=== PATIENT | male | born 1940 | race Caucasian/White ===

== ENCOUNTER 2017-04-07 17:33 | Emergency (ER) | payer OTHER ==
[~2017-04-07] VITALS: Ht 175.3 cm; Wt 97.5 kg
[~2017-04-07 17:33] MED LIST: ADVAIR 250-501 EACH INH; ADVAIR HFA 230M12 GM INH; ADVAIR HFA 45MC1 AER INH; ALDACTONE25 MG PO; ALLOPURINOL 30300 M1 PO; ALPRAZOLAM 0.50.5 MG PO; AMITRIPTYLINE H50 M2 PO; ANALPRAM E 2.51 EAC1 TOP; ASA5UEC PO; ASPIRIN EC81 M1 PO; ASPIRIN325 PO; ASPIRIN81 M2 PO; ATIVAN1 MG PO; ATORVASTATIN CA40 MG PO; AVELOX400 MG PO; AZOR 10-40 MG1 EACH PO; BYSTOLIC10 MG PO; CENTRUM SILVER1 EAC2 PO; CENTRUM SILVER1 EAC4 PO; CRESTOR10 MG PO; DEMADEX20 MG PO; FENOFIBRATE134 MG PO; FISH OIL 1,0001 EAC5 PO; FLEXERIL PO; FLONASE 0.05%50 MCG NASAL; FUROSEMIDE 20 M20 M1 PO; FUROSEMIDE10 MG/1 M2; GLIPIZIDE 10 MG10 M1 PO; GLUCOTROL10 MG PO; HYDROCODON-ACE1 EACH; IMDUR 30 MG TAB30 M1 PO; JANUVIA50 MG PO; LANTUS SUBQ; LASIX 40 MG TAB40 M2 PO; LEVOTHYROXIN0.075 MG PO; LEVOTHYROXINE0.05 MG PO; LIPOFEN150 MG PO; LOVAZA1000 MG PO; MICARDIS40 MG PO; MULTIVITAMINS PO; NEXIUM; NEXIUM 40 MG CA40 M1 PO; NITROGLYCERIN0.4 MG SL; NORCO 5-325 TA1 EACH PO; PLAVIX 75 MG TA75 M1 PO; PLAVIX 75 MG TA75 MG PO; PROAIR HFA8.5 GM IH; REGLAN 10 MG TA10 MG PO; REMERON15 MG PO; SAVAYSA30 MG PO; SILVADENE20 GM TOP; SPIRIVA INH; TAMSULOSIN HCL0.4 M1 PO; VASCEPA1 GM; VASCEPA1 GM PO; VICTOZA0.6 MG/0.1 SUBQ; WELCHOL3.75 GM PO; ZOCOR 20 MG TAB20 M1 PO; ZOLOFT25 MG PO
[2017-04-07] MEDS ORDERED: RENVELA800 MG PO (18:14)
[2017-04-07] MEDS ORDERED: XARELTO15 MG (18:16)
[2017-04-07] MEDS ORDERED: CRESTOR20 MG PO (18:16)
[2017-04-07] MEDS ORDERED: FLONASE 0.05%50 MCG NASAL (18:21)
[2017-04-07] MEDS ORDERED: [UNRECOGNIZED DRUG - SUPPLY] (18:21)
[2017-04-07] MEDS ORDERED: TRAMADOL 50 MG50 MG PO (18:49)
== END 2017-04-07 19:30 | disposition home or self-care (01) ==
LOC: ER 17:33
DX: S30.0XXA Contusion of lower back and pelvis, initial encounter (principal); S20.20XA Contusion of thorax, unspecified, initial encounter; I48.91 Unspecified atrial fibrillation; E78.00 Pure hypercholesterolemia, unspecified; M10.9 Gout, unspecified; K21.9 Gastro-esophageal reflux disease without esophagitis; E11.9 Type 2 diabetes mellitus without complications; I10 Essential (primary) hypertension; M19.90 Unspecified osteoarthritis, unspecified site; J44.9 Chronic obstructive pulmonary disease, unspecified; G47.30 Sleep apnea, unspecified; Z79.01 Long term (current) use of anticoagulants; Z87.442 Personal history of urinary calculi; Z90.49 Acquired absence of other specified parts of digestive tract; Z79.4 Long term (current) use of insulin; W11.XXXA Fall on and from ladder, initial encounter; Y93.89 Activity, other specified; Y92.89 Other specified places as the place of occurrence of the external cause; Y99.8 Other external cause status

== ENCOUNTER 2017-10-25 12:55 | Inpatient (IN) | payer OTHER ==
[~2017-10-25] VITALS: Ht 175.3 cm; Wt 97.0 kg
--- NOTE | ~2017-10-25 | EKG ---
[address] [address] ELECTROCARDIOGRAM REPORT Name: GONZALEZDARRICK Gissel Room #: 217-P ADM IN M.R.#: [id number] Admission: 10/25/17 Attend Phys: Viet Hyman MD Discharge: Date of : 36 Report #: [id number] THIS REPORT FOR: //name// [facility] ED Test Date: 2017-10-25 Test Time: 13:12:47 Pat Name: DARRICK GONZALEZ Department: Room: Gender: M Theatrical Variety Agent: floresita : 1940 Requested By: Mirtha Ardon Order Number: [id number] MD: Hammad Koehler Measurements Intervals [place] Rate: 95 P: NE: QRS: 53 QRSD: 162 T: -11 QT: 407 QTc: 512 Interpretive Statements Atrial fibrillation Right bundle branch block Nonspecific ST segment abnormalities Compared to ECG 02/29/2016 21:13:53 Ectopic atrial rhythm no longer present First degree AV block no longer present Electronically Signed On 10-26-2017 11:05:05 CDT by Hammad Koehler [email or web address] <ELECTRONICALLY SIGNED> By: Hammad Koehler MD 10/26/17 1105 1312 1312 Hammad Koehler MD /EPI
--- NOTE | ~2017-10-25 | EKG ---
[address] [address] ELECTROCARDIOGRAM REPORT Name: DARRICK GONZALEZ Room #: 217-P ADM IN M.R.#: [id number] Admission: 10/25/17 Attend Phys: Viet Hyman MD Discharge: Date of : 36 Report #: [id number] THIS REPORT FOR: //name// [facility] Test Date: 2017-10-29 Test Time: 12:11:22 Pat Name: DARRICK GONZALEZ Department: Room: 217 P Gender: M Business Analyst Manager: Juan Francisco BELL : 1940 Requested By: Corbin Mckeon Order Number: [id number] MD: Ace Arnett Measurements Intervals [place] Rate: 82 P: [place]: QRS: 60 QRSD: 170 T: 2 QT: 457 QTc: 534 Interpretive Statements Atrial fibrillation Right bundle branch block Compared to ECG 10/25/2017 13:12:47 No significant changes Electronically Signed On 10-29-2017 17:10:49 CDT by Ace Arnett [email or web address] <ELECTRONICALLY SIGNED> By: Ace Arnett MD, [facility] 10/29/17 1710 1211 10 Ace Arnett MD, [facility] /EPI
--- NOTE | ~2017-10-25 | 2DMMODE ---
[facility] [address] [facility] [employer] [place] [address] 2 D/M-MODE ECHOCARDIOGRAM Name: DARRICK GONZALEZ Room #: 217-P [facility] IN [facility].#: [id number] Admission: 10/25/17 Attend Phys: Viet Hyman, Discharge: Date of : 36 Date of Service: 10/27/17 0833 Report #: [id number] THIS REPORT FOR: //name// APPROVED REPORT Study performed: 10/26/2017 12:44:54 EXAM: Comprehensive 2D, Doppler, and color-flow Echocardiogram Status: on-call BSA: 2.09 HR: 94 bpm BP: 146/77 mmHg Rhythm: Atrial Fibrillation Other Information Study Quality: Adequate Risk Factors: Cardiac Risk Factors: HTN, Hyperlipidemia, DM Indications Congestive Heart Failure COPD Atrial Fibrillation Dyspnea Pacemaker Chest Pain 2D Dimensions LVEF(%): 44.67 (>50%) IVSd: 10.61 (7-11mm) LVOT Diam: 21.00 (18-24mm) LVDd: 53.50 mm PWd: 12.36 (7-11mm) LVDs: 41.53 (25-40mm) Aortic Root: 27.97 mm LV Single Plane 4CH: 39.38 % LV Single Plane 2CH: 42.58 % Wolf's LVEF: 40.98 % Biplane EF: 43.7 % Volumes Left Atrial Volume (Systole) Single Plane 4CH: 64.87 mL Single Plane 2CH: 55.73 mL LA ESV Index: 32.00 mL/m2 [facility] [address] [place] [address] 2 D/M-MODE ECHOCARDIOGRAM Name: DARRICK GONZALEZ Room #: 217-P [facility] IN ..#: [id number] Admission: 10/25/17 Attend Phys: Viet Hyman, Discharge: Date of : 36 Date of Service: 10/27/17 0833 Report #: [id number] Aortic Valve AoV Peak Radames.: 1.35 m/s AO Peak Gr.: 8.42 mmHg LVOT Max P.11 mmHg LVOT Max V: 0.88 m/s ANÍBAL Vmax: 2.34 cm2 AI Vmax: 4.43 m/s AI [place]: 1.85 m/s2 AI PHT: 702.31 ms Pulmonary Valve PV Peak Radames.: 0.72 m/s PV Peak Gr.: 2.07 mmHg Tricuspid Valve TR Peak Radames.: 2.55 m/s RAP Estimate: 10.00 mmHg TR Peak Gr.: 26.07 mmHg PA Pressure: 36.00 mmHg Left Ventricle The left ventricle is normal size. There is normal LV segmental wall motion. Mild concentric left ventricular hypertrophy. Left ventricular systolic function is mildly decreased. LVEF is 45%. This study is not technically sufficient to allow evaluation of the LV diastolic function due to atrial fibrillation. Right Ventricle The right ventricle is normal size. The right ventricular systolic function is normal. Atria The left atrium size is normal. The right atrium size is normal. Aortic Valve The Aortic valve is mildly sclerotic. Moderate aortic regurgitation. There is no aortic valvular stenosis. Mitral Valve The mitral valve is normal in structure. Moderate mitral regurgitation. No evidence of mitral valve stenosis. Tricuspid Valve The tricuspid valve is normal in structure. Moderate tricuspid regurgitation. Pulmonary artery pressure is 36 mmHg. Pulmonic Valve [facility] [address] [place] [address] 2 D/M-MODE ECHOCARDIOGRAM Name: DARRICK GONZALEZ Gissel Room #: 217-P [facility] IN .R.#: [id number] Admission: 10/25/17 Attend Phys: Viet Hyman, Discharge: Date of : 36 Date of Service: 10/27/17 0833 Report #: [id number] The pulmonary valve is normal in structure. Mild pulmonic regurgitation. Great Vessels The aortic root is normal in size. IVC is dilated and collapses <50% with inspiration. Pericardium There is no pericardial effusion. <Conclusion> The left ventricle is normal size. Mild concentric left ventricular hypertrophy. Left ventricular systolic function is mildly decreased. LVEF is 45%. The right ventricle is normal size. The left atrium size is normal. The Aortic valve is mildly sclerotic. Moderate aortic regurgitation. Moderate mitral regurgitation. Moderate tricuspid regurgitation. Pulmonary artery pressure is 36 mmHg. There is no pericardial effusion. <ELECTRONICALLY SIGNED> By: Hammad Koehler MD 10/27/17832 2 2 Hammad Koehler MD /INF
[~2017-10-25 12:55] MED LIST changes: +CRESTOR20 MG PO; +RENVELA800 MG PO; +TRAMADOL 50 MG50 MG PO; +XARELTO15 MG; +[UNRECOGNIZED DRUG - SUPPLY]
[2017-10-25 12:59] VITALS: BP 144/62
[2017-10-25] MEDS ORDERED: NEURONTIN 300300 M1 PO (13:06)
[2017-10-25] MEDS ORDERED: VOLTAREN GEL 1100 G2 TOP (13:06)
[2017-10-25] MEDS ORDERED: NOVOLOG FL100 UNIT/M SUBQ (13:07)
[2017-10-25] MEDS ORDERED: NOVOLOG100 UNIT/1 SUBQ (13:08)
[2017-10-25 13:55] LABS: ABSOLUTE NEUTROPHILS 2.3 thou/uL (1.4-8.2); BASOPHILS 1.2 % (0.0-2.0); EOSINOPHILS 1.2 % (0.0-3.0); HEMATOCRIT 32.4 % (42.0-52.0); HEMOGLOBIN 10.7 gm/dL (14.0-18.0); LYMPHOCYTES 26.3 % (24.0-44.0); MCH 29.4 pg (26.0-34.0); MCHC 33.1 g/dL (28.0-37.0); MCV 88.7 fL (80.0-100.0); MONOCYTES 8.6 % (1.0-8.0); PLATELET COUNT 127 thou/uL (150-400); POLYS 62.7 % (36.0-66.0); RBC 3.65 mil/uL (4.50-6.00); RDW 18.3 % (10.5-14.5); WBC 3.6 thou/uL (4.0-11.0)
[2017-10-25 14:14] LABS: CALCIUM 9.2 mg/dL (8.5-10.1); CREATININE 1.7 mg/dL (0.7-1.3); TROPONIN-I 0.07 ng/mL (<0.06)
[2017-10-25 15:26] VITALS: BP 144/62
[2017-10-25 16:24] LABS: ALBUMIN 3.4 g/dL (3.4-5.0); TOTAL PROTEIN 7.3 g/dL (6.4-8.2)
[2017-10-25 16:50] LABS: TSH 3.078 uIU/mL (0.358-3.740)
[2017-10-25 17:47] VITALS: BP 151/86
[2017-10-25 19:09] VITALS: BP 149/80
[2017-10-25 23:45] VITALS: BP 169/100
[2017-10-26 05:11] VITALS: BP 146/77
[2017-10-26 07:34] VITALS: BP 151/66
[2017-10-26 11:53] LABS: HEMATOCRIT 33.6 % (42.0-52.0); HEMOGLOBIN 11.1 gm/dL (14.0-18.0); MCH 29.3 pg (26.0-34.0); RBC 3.78 mil/uL (4.50-6.00); RDW 18.3 % (10.5-14.5); WBC 4.4 thou/uL (4.0-11.0)
[2017-10-26 12:06] LABS: CALCIUM 8.9 mg/dL (8.5-10.1); MAGNESIUM 1.7 mg/dL (1.8-2.4); POTASSIUM 4.3 mmol/L (3.5-5.1)
[2017-10-26 12:19] VITALS: BP 153/85
[2017-10-26 16:12] VITALS: BP 151/82
[2017-10-26 20:45] VITALS: BP 141/58
[2017-10-27] MEDS ORDERED: AMITRIPTYLINE H25 M2 PO (03:15)
[2017-10-27 03:20] VITALS: BP 158/87
[2017-10-27 07:57] VITALS: BP 150/76
[2017-10-27 08:37] LABS: MCH 29.2 pg (26.0-34.0); MCHC 32.5 g/dL (28.0-37.0); MCV 89.9 fL (80.0-100.0); RBC 4.11 mil/uL (4.50-6.00); RDW 18.6 % (10.5-14.5); WBC 10.1 thou/uL (4.0-11.0)
[2017-10-27 08:48] LABS: CALCIUM 9.1 mg/dL (8.5-10.1); CREATININE 1.9 mg/dL (0.7-1.3); MAGNESIUM 2.1 mg/dL (1.8-2.4); POTASSIUM 4.5 mmol/L (3.5-5.1)
[2017-10-27 11:41] VITALS: BP 119/60
[2017-10-27 16:09] VITALS: BP 139/77
[2017-10-27 20:30] VITALS: BP 156/79; BP 95/49
[2017-10-28 04:50] VITALS: BP 129/78
[2017-10-28 07:43] LABS: HEMATOCRIT 36.1 % (42.0-52.0); HEMOGLOBIN 11.9 gm/dL (14.0-18.0); MCH 29.1 pg (26.0-34.0); MCHC 32.8 g/dL (28.0-37.0); MCV 88.8 fL (80.0-100.0); RBC 4.07 mil/uL (4.50-6.00); RDW 18.5 % (10.5-14.5); WBC 8.2 thou/uL (4.0-11.0)
[2017-10-28 07:52] LABS: CALCIUM 8.9 mg/dL (8.5-10.1); MAGNESIUM 1.9 mg/dL (1.8-2.4); POTASSIUM 4.4 mmol/L (3.5-5.1)
[2017-10-28 07:55] VITALS: BP 144/77
[2017-10-28 11:12] VITALS: BP 115/67
[2017-10-28 19:56] VITALS: BP 120/73
[2017-10-29 03:54] LABS: CALCIUM 8.9 mg/dL (8.5-10.1); CREATININE 2.4 mg/dL (0.7-1.3); MAGNESIUM 2.1 mg/dL (1.8-2.4); POTASSIUM 4.9 mmol/L (3.5-5.1)
[2017-10-29 04:39] LABS: HEMATOCRIT 33.7 % (42.0-52.0); HEMOGLOBIN 11.3 gm/dL (14.0-18.0); MCH 29.7 pg (26.0-34.0); MCHC 33.6 g/dL (28.0-37.0); MCV 88.4 fL (80.0-100.0); RBC 3.82 mil/uL (4.50-6.00); RDW 18.2 % (10.5-14.5); WBC 6.3 thou/uL (4.0-11.0)
[2017-10-29 04:53] VITALS: BP 117/70
[2017-10-29] MEDS ORDERED: CEFUROXIME250 MG PO (08:07)
[2017-10-29 08:20] VITALS: BP 138/77
[2017-10-29 11:12] VITALS: BP 117/69
[2017-10-29 11:16] VITALS: BP 117/69
[2017-10-29 15:04] VITALS: BP 111/69
[2017-10-29] MEDS ORDERED: ATIVAN1 MG PO (16:31)
[2017-10-29 20:21] VITALS: BP 112/41
[2017-10-30 02:27] VITALS: BP 134/64
[2017-10-30 03:01] VITALS: BP 122/64
[2017-10-30 11:05] VITALS: BP 107/47
[2017-10-30] MEDS ORDERED: MUCINEX600 MG PO (13:59)
[2017-10-30] MEDS ORDERED: PROBIOTIC1 EAC1 PO (13:59)
[2017-10-30] MEDS ORDERED: IPRAT-ALBUT 0.5-3 ML INH (14:07)
[2017-10-30 16:11] VITALS: BP 140/67
== END 2017-10-30 18:52 | DRG 871 ==
LOC: ER 12:55 → EROBS 14:51 → 2N 14:51
PROVIDERS: Emergency Medicine; Internal Medicine
DX: A41.9 Sepsis, unspecified organism (principal); I50.23 Acute on chronic systolic (congestive) heart failure; J18.9 Pneumonia, unspecified organism; I13.0 Hypertensive heart and chronic kidney disease with heart failure and stage 1 through stage 4 chronic kidney disease, or unspecified chronic kidney disease; E84.9 Cystic fibrosis, unspecified; J44.1 Chronic obstructive pulmonary disease with (acute) exacerbation; J44.0 Chronic obstructive pulmonary disease with (acute) lower respiratory infection; N18.4 Chronic kidney disease, stage 4 (severe); M19.90 Unspecified osteoarthritis, unspecified site; K21.9 Gastro-esophageal reflux disease without esophagitis; E78.00 Pure hypercholesterolemia, unspecified; M10.9 Gout, unspecified; I48.91 Unspecified atrial fibrillation; E78.5 Hyperlipidemia, unspecified; E11.22 Type 2 diabetes mellitus with diabetic chronic kidney disease; E03.9 Hypothyroidism, unspecified; G47.00 Insomnia, unspecified; F41.1 Generalized anxiety disorder; F41.0 Panic disorder [episodic paroxysmal anxiety]; R63.4 Abnormal weight loss; R29.6 Repeated falls; I27.20 Pulmonary hypertension, unspecified; G47.30 Sleep apnea, unspecified; K59.00 Constipation, unspecified; Z95.1 Presence of aortocoronary bypass graft; Z87.442 Personal history of urinary calculi; Z87.11 Personal history of peptic ulcer disease; Z95.0 Presence of cardiac pacemaker; Z79.899 Other long term (current) drug therapy; Z79.4 Long term (current) use of insulin; Z79.82 Long term (current) use of aspirin; Z95.820 Peripheral vascular angioplasty status with implants and grafts; Z82.49 Family history of ischemic heart disease and other diseases of the circulatory system; Z91.81 History of falling; Z68.31 Body mass index [BMI] 31.0-31.9, adult; Z79.01 Long term (current) use of anticoagulants
CPT/HCPCS: 10194

== ENCOUNTER 2018-04-12 21:16 | Inpatient (IN) | payer OTHER ==
--- NOTE | ~2018-04-12 | HC ---
[facility] [place] [address] CONSULTATION Name: DARRICK GONZALEZ Room #: 213-P ADM IN M.R.#: [id number] Admission: 04/12/18 Attend Phys: Shen Canales MD Discharge: Date of : 38 Report #: [id number] THIS REPORT FOR: //name// CC: Teddy Canales DATE OF SERVICE: 04/17/2018 REASON FOR CONSULTATION: Epistaxis. HISTORY OF PRESENT ILLNESS: The patient is a 77-year-old male who has a history of chronic renal insufficiency, congestive heart failure, ischemic cardiomyopathy, diabetes, atrial fibrillation, pacemaker placement, who also has low platelet count. He is on Xarelto. Apparently, he has been picking at his nose in the morning times and had some bleeding this morning. Anterior pack was placed this morning, which he then removed. He does not remember removing the packing or having it placed this morning. Questioning him on the date today, he does know that it is 04/17/2018, but does not really remember anybody put anything or messing with his nose today. I have been asked to evaluate him for epistaxis. He is not currently bleeding, and the nurse states that since she told him to stop playing with his nose or she would have to call the doctor that he has stopped touching his nose and he is no longer bleeding. PAST MEDICAL HISTORY: Significant for cardiomyopathy, 40% ejection fraction, pacemaker, COPD, liver cirrhosis, diabetes, hypertension. PAST SURGICAL HISTORY: Coronary bypass, transurethral resection of prostate, cardiac ablation. FAMILY HISTORY: Noncontributory. SOCIAL HISTORY: He used alcohol socially. FAMILY HISTORY: Noncontributory. REVIEW OF SYSTEMS: Significant for some nausea and abdominal discomfort. Otherwise, no significant positives on review of systems. PHYSICAL EXAMINATION: GENERAL: He is a well-developed male who is sitting up comfortably, resting in his chair. He is watching TV and is conversant. HEENT: Head is normocephalic. Pupils are equal, round and reactive. Nasal, no evidence of active epistaxis. Nasal mucosa is a little bit dry. He is mouth breathing. Oral cavity, no greenish ulcerations seen. NECK: No palpable adenopathy. [facility] [address] [place] [address] CONSULTATION Name: DARRICK GONZALEZ Room #: 213-P [facility] IN [facility].#: [id number] Admission: 04/12/18 Attend Phys: Shen Canales MD Discharge: Date of : 38 Report #: [id number] IMPRESSION: History of epistaxis with thrombocytopenia, anticoagulation and renal insufficiency, all leading to significant increased risk for epistaxis. PLAN: At this point, I have asked for him not to touch or manipulate his nose. His platelet count has been on the rise, and this should be helpful. As long as he is not manipulating his nose, it should be self-limited.. By: [id number] Jacek Rangel MD /arlet
[~2018-04-12 21:16] MED LIST changes: +AMITRIPTYLINE H25 M2 PO; +ANALPRAM HC 128.4 GM RC; +CEFUROXIME250 MG PO; +FISH OIL 1,001000 M2 PO; +FLOMAX0.4 MG PO; +IPRAT-ALBUT 0.5-3 ML INH; +MIRALAX17 GM PO; +MUCINEX600 MG PO; +NEURONTIN 300300 M1 PO; +NOVOLOG FL100 UNIT/M SUBQ; +NOVOLOG100 UNIT/1 SUBQ; +PROBIOTIC1 EAC1 PO; +SSD CREAM 1% 5050 GM TOP; +TOUJEO MAX300 UNIT/1 SUBQ; +TYLENOL325 MG PO; +VOLTAREN GEL 1100 G2 TOP
[2018-04-12] MEDS ORDERED: PROAIR RESPICL90 MCG INH (22:02)
[2018-04-12] MEDS ORDERED: [UNRECOGNIZED DRUG - OTHER] PO (22:10)
[2018-04-12] MEDS ORDERED: MELATONIN5 M1 PO (22:12)
[2018-04-13 01:12] LABS: ABSOLUTE NEUTROPHILS 15.5 thou/uL (1.4-8.2); BASOPHILS 0.3 % (0.0-2.0); HEMATOCRIT 27.9 % (42.0-52.0); HEMOGLOBIN 9.1 gm/dL (14.0-18.0); LYMPHOCYTES 4.8 % (24.0-44.0); MCH 28.1 pg (26.0-34.0); MCHC 32.8 g/dL (28.0-37.0); MCV 85.5 fL (80.0-100.0); MONOCYTES 3.4 % (1.0-8.0); PLATELET COUNT 70 thou/uL (150-400); POLYS 91.5 % (36.0-66.0); RBC 3.26 mil/uL (4.50-6.00); RDW 18.7 % (10.5-14.5); WBC 16.9 thou/uL (4.0-11.0)
--- NOTE | 2018-04-13 01:19 | NUR ---
PT IS ALERT AND ORIENTED 2-4. HE IS FORGETFUL AND CONFUSED AT TIMES. HE ALSO LIKES TO REPEAT, 'OH HELP ME CHRISTINA,' VERY LOUDLY. PT C/O ABDOMEN/CHEST PAIN. PAIN MEDICATION GIVEN AND RECEIVED. PT STATES SOME RELIEF. THE PATIENT'S ALSO STATED THAT THE PAIN SEEMS TO GET WORSE AT NIGHT WHEN THE PATIENT IS LYING DOWN. PT STATES THAT THE PAIN HAS BEEN GOING ON FOR A WHILE, HOWEVER HE IS UNSURE HOW LONG IT HAS BEEN GOING ON. ASSESSMENTS CHARTED. WILL CONTINUE TO MONITOR.
[2018-04-13 01:28] LABS: CHOLESTEROL 50 mg/dL (<200); HDL CHOLESTEROL 34 mg/dL (>40); LDL CHOLESTEROL 5 mg/dL (<100); TC:HDL 1.5 Ratio (Not establshd); TRIGLYCERIDE 59 mg/dL (<150); VLDL 12 mg/dL (<40)
[2018-04-13 01:29] LABS: ALBUMIN 3.1 g/dL (3.4-5.0); CALCIUM 9.1 mg/dL (8.5-10.1); CREATININE 4.6 mg/dL (0.7-1.3); MAGNESIUM 2.1 mg/dL (1.8-2.4); POTASSIUM 4.8 mmol/L (3.5-5.1); TOTAL BILIRUBIN 1.8 mg/dL (<0.1-1.0); TOTAL PROTEIN 6.8 g/dL (6.4-8.2)
[2018-04-13 01:32] LABS: SERUM ASSESSMENT Clear
[2018-04-13 03:49] VITALS: BP 109/44
[2018-04-13 08:17] VITALS: BP 115/53
[2018-04-13 09:24] LABS: URINE COLOR YELLOW
[2018-04-13 09:25] LABS: URINE BILIRUBIN NEGATIVE (Negative); URINE BLOOD TRACE (Negative); URINE CLARITY CLEAR; URINE GLUCOSE-RANDOM* NEGATIVE (Negative); URINE KETONES NEGATIVE (Negative); URINE LEUKOCYTES NEGATIVE (Negative); URINE NITRITE NEGATIVE (Negative); URINE PROTEIN (DIPSTICK) 2+ (Negative); URINE SPECIFIC GRAVITY 1.025 (1.005-1.035); URINE UROBILINOGEN 0.2 E.U./dl (0.2-1.0)
[2018-04-13 09:26] LABS: PROT/CREAT RATIO 0.6; URINE CREATININE-RANDOM* 189.3 mg/dL; URINE PROTEIN-RANDOM* 118.7 mg/dL (<11.9)
[2018-04-13 09:34] LABS: COARSE GRANULAR CASTS 4-10 Moderate /LPF (None Seen); HYALINE CASTS 0-3 Few /LPF (None Seen); SQUAMOUS 0-3 Few /LPF (0-3)
[2018-04-13 09:35] LABS: BACTERIA 1-9 Few /HPF (None Seen); URINE RBC 0-2 Rare /HPF (0-2); URINE WBC None Seen /HPF (0-5)
[2018-04-13 09:36] LABS: CRYSTALS None Seen /LPF (None Seen)
[2018-04-13 12:21] VITALS: BP 130/55
[2018-04-13 17:54] VITALS: BP 133/57
[2018-04-13 19:55] VITALS: BP 147/63
--- NOTE | 2018-04-14 03:01 | NUR ---
ASSUMED CARE 190. VSS. ASSESSMENT CHARTED. A&O 2-4, PT FORGETFUL, C/O UPPER AB PAIN AND NAUSEA BUT WILL DENY HIS CONCERNS WHEN ASKED. PT DENIES CP OR SOA. PRN PAIN AND NAUSEA MEDS GIVEN, PARTIAL/COMPLETE RELIEF-PT WILL CHANGE ANSWER. PT STATED HE WEARS A CPAP AT NIGHT, TESTING AND REGULATING TECHNICIAN NOTIFIED, ORDERS GIVEN. PT HAS LOOSE STOOL SMALL SMEARS ON BED. WAITING FOR STOOL AND SPUTUM SAMPLES. ABX AND FLUIDS INFUSING PER EMAR. ON ELECTORLYTE PROTOCOL, POTASSIUM REPLACED PER EMAR, REDRAW THIS AM. WILL CONTINUE TO MONITOR AND WITH POC.
[2018-04-14 03:23] VITALS: BP 177/106
[2018-04-14 03:27] LABS: ABSOLUTE NEUTROPHILS 9.6 thou/uL (1.4-8.2); BASOPHILS 0.2 % (0.0-2.0); EOSINOPHILS 0.7 % (0.0-3.0); HEMATOCRIT 26.5 % (42.0-52.0); HEMOGLOBIN 8.5 gm/dL (14.0-18.0); MCH 27.3 pg (26.0-34.0); MCHC 32.2 g/dL (28.0-37.0); MCV 84.9 fL (80.0-100.0); MONOCYTES 4.6 % (1.0-8.0); PLATELET COUNT 69 thou/uL (150-400); POLYS 89.5 % (36.0-66.0); RBC 3.12 mil/uL (4.50-6.00); RDW 19.1 % (10.5-14.5); WBC 10.8 thou/uL (4.0-11.0)
[2018-04-14 03:50] LABS: ALBUMIN 2.8 g/dL (3.4-5.0); CALCIUM 8.7 mg/dL (8.5-10.1); CREATININE 5.1 mg/dL (0.7-1.3); PHOSPHORUS 5.8 mg/dL (2.5-4.9); POTASSIUM 4.4 mmol/L (3.5-5.1)
[2018-04-14 03:53] LABS: % SATURATION 4 % (20-39); IRON 11 ug/dL (65-175); TIBC 263 ug/dL (250-450)
--- NOTE | 2018-04-14 11:21 | HC ---
[facility] [place] [address] CONSULTATION Name: DARRICK GONZALEZ Room #: 213-P ADM IN M.R.#: [id number] Admission: 04/12/18 Attend Phys: Corbin Mckeon Discharge: Date of : 38 Report #: [id number] THIS REPORT FOR: //name// CC: Corbin Blocknestor Sollucretia DATE OF SERVICE: 04/12/2018 NEPHROLOGY CONSULTATION ATTENDING PHYSICIAN: Dr. Mckeon. REASON FOR CONSULTATION: Elevated creatinine. HISTORY OF PRESENT ILLNESS: The patient is well known to our service, followed in our office for several years. He has chronic kidney disease with a baseline creatinine of 2.5. He has a history of ischemic cardiomyopathy, congestive heart failure, history of diabetes mellitus without heavy proteinuria, chronic atrial fibrillation with a pacemaker and was hospitalized here 3 weeks ago with abdominal pain. This resolved without issue. Creatinine at that time was in the mid 2 range at baseline as well as volume status. The patient was doing well, yesterday developed abdominal pain, which was recurrent, which he has a long history often related to constipation. He had pulmonary infiltrates and was felt to have pneumonia and was admitted. PAST MEDICAL HISTORY: Ischemic cardiomyopathy with ejection fraction that has been in the range of 40% with chronic pacemaker as mentioned. 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 He has longstanding diabetes as mentioned. He struggled some with hypertension in the past as well. He has had previous coronary bypass, previous transurethral resection of the prostate and failed cardiac ablation. Home medications have often been confused as the patient does have some cognitive impairment. He lives at home with his , often not on medications as listed in our office records. Currently as listed include aspirin 81 mg daily, Voltaren gel, vitamin D and fish oil, insulin, Synthroid 0.075 mg daily, Remeron, levothyroxine, Xarelto 15 mg daily, Crestor 20 mg daily, tamsulosin 0.4 mg daily and torsemide 20 mg daily. FAMILY HISTORY: Noncontributory. SOCIAL HISTORY: Remotely, he was a social drinker. There is no real cigarette history that I know of. [facility] [address] [place] [address] CONSULTATION Name: DARRICK GONZALEZ Room #: 213-P [facility] IN ..#: [id number] Admission: 04/12/18 Attend Phys: Corbin Mckeon Discharge: Date of : 38 Report #: [id number] REVIEW OF SYSTEMS: GENERAL: He says he has been feeling fairly well out and about. He does not drive, but he does get around on his own and goes out for a walk when the weather is nice. EYES: His vision is reasonably good. ENT: Hearing okay, swallows okay. No mouth sores. ENDOCRINE: Positive for the diabetes and thyroid disease. RESPIRATORY: Currently, a bit short-winded. CARDIAC: No chest pain, angina, does not feel any palpitations. Has chronic leg swelling. GASTROINTESTINAL: Abdominal pain with nausea, no vomiting, no bloody stool. GENITOURINARY: Reasonably good urinary stream on the Flomax. MUSCULOSKELETAL: He has got chronic arthritic pains and uses Voltaren gel as mentioned. PHYSICAL EXAMINATION: GENERAL: Reasonably well appearing, in good spirits, seems to be giving a reasonably good history. SKIN: Unremarkable. SKELETAL: Well developed, well nourished. HEENT: Extraocular movements are full. Vision okay with corrective lenses. Mucous membranes moist. NECK: Supple. CHEST: Shows some rhonchi at the lung bases. HEART: Irregular. ABDOMEN: Soft and nontender. EXTREMITIES: Show trace to 1+ peripheral edema, which is chronic. NEUROLOGIC: Grossly intact. LABORATORY DATA: Urinalysis is pending. Hemoglobin 9.1, which is down for him, platelets only 70,000. Sodium 138, potassium 4.8, chloride 103, bicarbonate 24, creatinine 4.6, BUN 72, bilirubin 1.8, albumin 3.1. ASSESSMENT AND PLAN: 1. Acute and chronic kidney disease. His creatinine does tend to go up rather easily and usually resolves rather easily as well. His overall renal function is on the whole likely worse than his baseline creatinine of 2.5 would indicate and his renal reserve seems to be rather poor and he may be developing worsening renal damage over time. The development of cirrhosis is certainly playing a role here likely making his renal function and perfusion even worse than it had been. He does have poor cardiac output as well and now has pneumonia. Gentle IV fluids are being given. I will check urinalysis and urine protein studies to see where we are at in that regard. 2. Pneumonia, on antibiotics. 3. Cirrhosis, unknown etiology. 4. Longstanding diabetes mellitus. [facility] [address] [place] [address] CONSULTATION Name: DARRICK GONZALEZ Room #: 213-P [facility] IN M.R.#: [id number] Admission: 04/12/18 Attend Phys: Corbin Mckeon Discharge: Date of : 38 Report #: [id number] 5. Chronic obstructive pulmonary disease. 6. Ischemic cardiomyopathy with decreased ejection fraction. 7. Chronic atrial fibrillation with pacemaker. 8. Cognitive impairment. <ELECTRONICALLY SIGNED> By: Khanh Villanueva MD 04/14/18 1121 0813 2327 Khanh Villanueva MD /nt
[2018-04-14 11:36] VITALS: BP 123/62
--- NOTE | 2018-04-14 14:54 | NUR ---
met with patient who resides at home with . he has a cane and walker but has not been using lately. he does not have home oxygen but currently rec at this time. Patient reports does driving. he was at [facility] in October/2017 at that time transferred to [facility]. He reports dc home from [facility] and would go to facility again if needed.
[2018-04-14 15:16] VITALS: BP 141/76
[2018-04-14 20:26] VITALS: BP 156/72
[2018-04-15 04:04] LABS: ALBUMIN 2.9 g/dL (3.4-5.0); CALCIUM 9.1 mg/dL (8.5-10.1); CREATININE 4.5 mg/dL (0.7-1.3); PHOSPHORUS 5.7 mg/dL (2.5-4.9)
[2018-04-15 04:40] LABS: POTASSIUM 5.2 mmol/L (3.5-5.1)
[2018-04-15 05:19] VITALS: BP 155/77
--- NOTE | 2018-04-15 05:59 | NUR ---
ASSUMED CARE 1900. ASSESSMENT CHARTED. A&OX4, FORGETFUL AND IMPULSIVE AT TIMES. PT YELLS "HELP ME LORD" , C/O NAUSEA NO VOMITING, AND AB PAIN AT TIMES. PT STATES HE FEELS BETTER SITTING IN CHAIR. PT FORGETS WHEN GIVEN PAIN OR ANTINAUSEA MEDS PER EMAR. BED ALARM ON. CPAP WORN BUT NOT TOLERATED, REPLACED WITH 2 L NC. WILL CONTINUE TO MONITOR AND WITH POC.
[2018-04-15 07:10] VITALS: BP 145/86
--- NOTE | 2018-04-15 10:12 | NUR ---
BLADDER SCAN PER DR. SANCHEZ ORDER. RESULTS: 17MLS. NO INTERVENTION AT THIS TIME.
--- NOTE | 2018-04-15 11:09 | NUR ---
PT IS VERY IMPULSIVE. FALL PRECAUTIONS IN PLACE. CHAIR ALARM/ BED ALARM IN USE, YELLOW NON SKID SOCKS, FALL BRACELET ON. PT CONTINUES TO GET UP WITHOUT CALLING FOR HELP. PT REMINDED TO USE CALL LIGHT AND WAIT FOR STAFF BEFORE GETTING UP. WILL CONTINUE TO CLOSELY MONITOR PT.
[2018-04-15 16:36] VITALS: BP 124/58
[2018-04-15 20:41] VITALS: BP 153/32
--- NOTE | 2018-04-15 23:27 | NUR ---
PT IS ALERT AND ORIENTED X 3-4, HOWEVER SOMEWHAT FORGETFUL. THE PATIENT DENIES PAIN, ALTHOUGH HE IS CONCERNED THAT THERE IS SOME BLOOD COMING FROM HIS RECTAL AREA. ONE STOOL SAMPLE WAS COLLECTED ORDERED. THE PATIENT ALSO HAS A VERY DRY COUGH. SOMETIMES HE FORCES HIMSELF TO COUGH BECAUSE HE STATES THAT IT FEELS LIKE THERE IS SOMETHING IN HIS THROAT. THE PATIENT STATES THAT HIS THROAT JUST FEELS LIKE IT IS RAW. ASSESSMENT CHARTED. WILL CONTINUE TO MONITOR.
[2018-04-16 04:16] LABS: ALBUMIN 2.9 g/dL (3.4-5.0); CALCIUM 8.8 mg/dL (8.5-10.1); CREATININE 3.9 mg/dL (0.7-1.3); PHOSPHORUS 5.1 mg/dL (2.5-4.9); POTASSIUM 4.6 mmol/L (3.5-5.1)
[2018-04-16 04:26] LABS: HEMATOCRIT 27.6 % (42.0-52.0); MCH 27.3 pg (26.0-34.0); MCHC 32.5 g/dL (28.0-37.0); RBC 3.28 mil/uL (4.50-6.00); RDW 18.8 % (10.5-14.5); WBC 5.5 thou/uL (4.0-11.0)
[2018-04-16 05:39] VITALS: BP 136/76
[2018-04-16 07:33] VITALS: BP 138/64
[2018-04-16 11:46] VITALS: BP 157/57
--- NOTE | 2018-04-16 13:58 | NUR ---
ASSUMED AT SHIFT CHANGE ASSESMENT CHARTED. FORGETFUL AT SOME TIMES. PATIENT DENIES ANY CP OR DISCOMFORT, REMAINS ON AFIB AND VSS. WILL CONTNUE POC.
[2018-04-16 15:29] VITALS: BP 143/56
--- NOTE | 2018-04-16 15:50 | NUR ---
FAXED FACE SHEET TO [facility]. SPOKE WITH SARAH IN ADM. AND SHE RECEIVED FACE SHEET AND WILL EVAL PT. IN AM. ANTICIPATE DC TOMORROW. DCP TO FOLLOW.
--- NOTE | 2018-04-16 16:25 | NUR ---
SWS MET WITH PT TO DISCUSS DC PLANNING AND REVIEWED RECOMMENDATION OF POST ACUTE REHAB STAY. OFFERRED 5N EVAL BUT PT INDICATES HAS BEEN TO [facility] IN PAST AND AGREEABLE TO GOING THERE IF ACCEPTED. SARAH FROM [facility] CONTACTED AND WILL EVAL IN AM. OFFERED TO CALL PT'S FAMILY TO UPDATE AND PT DECLINED. CM WILL FOLLOW TO ASSIST WITH DC TOMARH IF ACCEPTED 04/17/18.
[2018-04-16 19:36] VITALS: BP 148/61
[2018-04-17 03:44] VITALS: BP 168/75
--- NOTE | 2018-04-17 05:30 | NUR ---
PT A0 X4. C/O SOB AND NAUSEA WHOLE NIGHT. PT RECIEVED PRN ZOFRAN AND BENZONATATE WITH PARTIAL RELIEF OF COUGH. PT HAS INCREASED EDEMA, WEEPING IN HIS LOWER EXTREMITIES. PT ON PO TORSEMIDE.
[2018-04-17 07:15] LABS: ALBUMIN 3.3 g/dL (3.4-5.0); CREATININE 3.5 mg/dL (0.7-1.3); PHOSPHORUS 5.4 mg/dL (2.5-4.9); POTASSIUM 5.1 mmol/L (3.5-5.1)
[2018-04-17 07:45] VITALS: BP 140/71
[2018-04-17 08:52] LABS: HEMATOCRIT 28.8 % (42.0-52.0); HEMOGLOBIN 9.2 gm/dL (14.0-18.0); MCH 26.9 pg (26.0-34.0); MCHC 32.1 g/dL (28.0-37.0); MCV 83.8 fL (80.0-100.0); PLATELET COUNT 106 thou/uL (150-400); RBC 3.43 mil/uL (4.50-6.00); RDW 19.1 % (10.5-14.5); WBC 8.6 thou/uL (4.0-11.0)
[2018-04-17 08:55] LABS: INR 1.7; PROTIME 17.5 Seconds (9.3-11.4)
[2018-04-17 11:02] LABS: ABSOLUTE NEUTROPHILS 8.3 thou/uL (1.4-8.2); ANISOCYTOSIS 2+; MYELOCYTES 1 %; OVALOCYTES 2+
[2018-04-17 11:03] LABS: BURR CELLS FEW; TEARDROPS OCCASIONAL
[2018-04-17 11:05] LABS: POLYCHROMASIA OCCASIONAL
[2018-04-17 11:25] VITALS: BP 129/55
--- NOTE | 2018-04-17 13:17 | NUR ---
[facility] and patient accepted. sp with son who reports family really wants GI workup for his stomach issues as he will readmit if not completed. He reports patient goes home and returns with stomach issues. Son reports they are all in agreement with [facility] once stable. [facility] updated today patient not ready for dc today.
--- NOTE | 2018-04-17 15:16 | NUR ---
ASSUMED CARE AT SHIFT CHANGE, ALERT AND ORIENTED BUT FORGETFUL. C/O PAIN TO ABD, UPPER GI XRAY WAS DONE. AFIB ON THE MONITOR AND VSS, OZIEL LE EDEMA WORSINING AND MD NOTIFIED. PATIENT HAD NASAL BLEEDING AND DR TODD PACKED RT NOSTRIL AND PATIENT REMOVED PACKING. NO MORE BLEEDING REPORTED. AND WILL CONTINUE WITH POC.
[2018-04-17 16:00] VITALS: BP 145/69
[2018-04-17 18:10] LABS: IgG 926 mg/dL (700-1600)
[2018-04-17 19:57] VITALS: BP 133/73
--- NOTE | 2018-04-18 00:05 | NUR ---
PT ALERT AND ORIENTED. CO UPSET STOMACH, FEELS NAUSEA ON ZOFRAN PRN. PT IS AFIB WITH PVC'S ALMOST EVERY 6 SECONDS. ASYPTOMATIC. DENIES CHEST PAIN. PT ALSO ENCOURAGED TO LAY IN BED, ELEVATE HER FEET DUE TO INCREASE WEEPING EDEMA. WILL CONTINUE TO MONITOR AND FOLLOW POC.
--- NOTE | 2018-04-18 00:55 | NUR ---
PERSISTENT PVC'S ON INSTRUCTOR BUSINESS EDUCATION. DAVID CARNEY CALLED. ORDERED MG AND K LABS TO BE DRAWN STAT.
--- NOTE | 2018-04-18 02:58 | NUR ---
PT REFUSED BLOOS DRAW FOR MG AND K ORDER. PT WANTED IT TO BE DONE IN THE MORNING.
[2018-04-18 05:16] VITALS: BP 148/66
[2018-04-18 06:09] LABS: HEMATOCRIT 27.7 % (42.0-52.0); HEMOGLOBIN 9.2 gm/dL (14.0-18.0); MCH 27.6 pg (26.0-34.0); MCHC 33.3 g/dL (28.0-37.0); RBC 3.33 mil/uL (4.50-6.00); RDW 19.3 % (10.5-14.5); WBC 6.5 thou/uL (4.0-11.0)
[2018-04-18 06:25] LABS: ALBUMIN 3.2 g/dL (3.4-5.0); CALCIUM 8.7 mg/dL (8.5-10.1); CREATININE 3.4 mg/dL (0.7-1.3); POTASSIUM 4.3 mmol/L (3.5-5.1)
[2018-04-18 06:26] LABS: MAGNESIUM 2.4 mg/dL (1.8-2.4); POTASSIUM 4.4 mmol/L (3.5-5.1)
[2018-04-18 07:15] LABS: HAV IgM AB (ANTI-HAV IgM) Negative (Negative); HEPATITIS B SURFACE AG Negative (Negative); HEPATITIS C VIRUS AB 1.2 (0.0-0.9)
[2018-04-18 07:20] VITALS: BP 138/71
[2018-04-18 11:30] VITALS: BP 133/65
[2018-04-18] MEDS ORDERED: AUGMENTIN 500-1 EACH PO (11:43)
[2018-04-18] MEDS ORDERED: DEMADEX20 MG PO (11:45)
[2018-04-18] MEDS ORDERED: CHLORTHALIDONE25 MG PO (11:45)
[2018-04-18] MEDS ORDERED: SODIUM BICARBO650 M3 PO (11:46)
[2018-04-18] MEDS ORDERED: MUCINEX600 MG PO (11:46)
[2018-04-18] MEDS ORDERED: TESSALON PERLE100 MG PO (11:46)
[2018-04-18] MEDS ORDERED: PREDNISONE 10 M10 MG PO (11:48)
--- NOTE | 2018-04-18 13:55 | NUR ---
PT. DISCHARGING TODAY TO [facility]. FAXED DC ORDERSS/SUMMARY TO FACILITY. SPOKE WITH SARAH IN ADM. AND SHE RECEIVED ORDERS AND SET UP TRANSPORT[facility]ON [facility]IA [facility] FOR 1800 TODAY. NOTIFIED SON (MARIA GUADALUPE) OF DISCHARGE AND TIME OF TRANSPORT. UNIT NOTIFIED AND CHART COPY PER [place]. RN TO CALL REPORT TO [phone].
[2018-04-18 14:10] LABS: CERULOPLASMIN 30.6 mg/dL (16.0-31.0)
[2018-04-18 15:25] VITALS: BP 137/93
[2018-04-21 13:11] LABS: ANA INTERPRETATION Negative (Negative)
== END 2018-04-18 18:22 | DRG 871 ==
LOC: 2N 21:16
PROVIDERS: Family Medicine; Internal Medicine Nephrology; Nurse Practitioner; Nurse Practitioner Acute Care; ADMIT Internal Medicine
PROC: 5A09357 Assistance with Respiratory Ventilation, Less than 24 Consecutive Hours, Continuous Positive Airway Pressure (ICD-10-PCS; principal; 2018-04-16)
PROC: 5A09357 Assistance with Respiratory Ventilation, Less than 24 Consecutive Hours, Continuous Positive Airway Pressure (ICD-10-PCS; 2018-04-17)
DX: A41.9 Sepsis, unspecified organism (principal); J18.9 Pneumonia, unspecified organism; N17.9 Acute kidney failure, unspecified; M62.82 Rhabdomyolysis; R18.8 Other ascites; J44.1 Chronic obstructive pulmonary disease with (acute) exacerbation; I48.92 Unspecified atrial flutter; J44.0 Chronic obstructive pulmonary disease with (acute) lower respiratory infection; I13.0 Hypertensive heart and chronic kidney disease with heart failure and stage 1 through stage 4 chronic kidney disease, or unspecified chronic kidney disease; N18.4 Chronic kidney disease, stage 4 (severe); I25.5 Ischemic cardiomyopathy; I50.9 Heart failure, unspecified; E11.22 Type 2 diabetes mellitus with diabetic chronic kidney disease; K74.60 Unspecified cirrhosis of liver; M19.90 Unspecified osteoarthritis, unspecified site; K21.9 Gastro-esophageal reflux disease without esophagitis; E78.00 Pure hypercholesterolemia, unspecified; E03.9 Hypothyroidism, unspecified; M10.9 Gout, unspecified; I25.10 Atherosclerotic heart disease of native coronary artery without angina pectoris; D63.8 Anemia in other chronic diseases classified elsewhere; G47.33 Obstructive sleep apnea (adult) (pediatric); E78.5 Hyperlipidemia, unspecified; R04.0 Epistaxis; I48.2 Chronic atrial fibrillation; Z95.1 Presence of aortocoronary bypass graft; Z95.0 Presence of cardiac pacemaker; Z79.01 Long term (current) use of anticoagulants; Z88.8 Allergy status to other drugs, medicaments and biological substances; Z82.49 Family history of ischemic heart disease and other diseases of the circulatory system; Z95.820 Peripheral vascular angioplasty status with implants and grafts; Z90.49 Acquired absence of other specified parts of digestive tract; Z87.891 Personal history of nicotine dependence; Z87.442 Personal history of urinary calculi; Z79.82 Long term (current) use of aspirin; Z79.899 Other long term (current) drug therapy
CPT/HCPCS: 10081

== ENCOUNTER 2018-04-24 12:18 | Inpatient (IN) | payer OTHER ==
[~2018-04-24] VITALS: Ht 175.3 cm; Wt 88.0 kg
[~2018-04-24 12:18] MED LIST changes: +AUGMENTIN 500-1 EACH PO; +CHLORTHALIDONE25 MG PO; -CRESTOR20 MG PO; +LEVEMIR100 UNIT/1 SUBQ; -LEVOTHYROXIN0.075 MG PO; +MELATONIN5 M1 PO; +PREDNISONE 10 M10 MG PO; +PROAIR RESPICL90 MCG INH; +SODIUM BICARBO650 M3 PO; +SYNTHROID75 MCG PO; +TESSALON PERLE100 MG PO; -TOUJEO MAX300 UNIT/1 SUBQ; +[UNRECOGNIZED DRUG - OTHER] PO
[2018-04-24 12:19] VITALS: BP 125/39
--- NOTE | 2018-04-24 13:06 | NUR ---
IV TEAM CALLED TO PLACE IV
[2018-04-24] MEDS ORDERED: TESSALON PERLE100 MG PO (13:15)
--- NOTE | 2018-04-24 13:15 | NUR ---
IV TEAM AT BEDSIDE TO PLACE IV
[2018-04-24 13:17] LABS: ABSOLUTE NEUTROPHILS 10.8 thou/uL (1.4-8.2); BASOPHILS 0.7 % (0.0-2.0); EOSINOPHILS 0.4 % (0.0-3.0); HEMATOCRIT 30.9 % (42.0-52.0); HEMOGLOBIN 9.9 gm/dL (14.0-18.0); LYMPHOCYTES 5.2 % (24.0-44.0); MCHC 32.1 g/dL (28.0-37.0); MCV 87.3 fL (80.0-100.0); MONOCYTES 5.2 % (1.0-8.0); PLATELET COUNT 177 thou/uL (150-400); POLYS 88.5 % (36.0-66.0); RBC 3.54 mil/uL (4.50-6.00); RDW 21.7 % (10.5-14.5); WBC 12.2 thou/uL (4.0-11.0)
[2018-04-24 13:21] LABS: CALCIUM 8.7 mg/dL (8.5-10.1); CREATININE 2.3 mg/dL (0.7-1.3)
[2018-04-24] MEDS ORDERED: HYDROCORTISONE30 G9 RECTAL (13:21)
[2018-04-24 13:22] LABS: POTASSIUM 3.7 mmol/L (3.5-5.1)
[2018-04-24 13:26] LABS: ALBUMIN 3.2 g/dL (3.4-5.0); TOTAL BILIRUBIN 2.3 mg/dL (<0.1-1.0); TOTAL PROTEIN 7.1 g/dL (6.4-8.2)
[2018-04-24] MEDS ORDERED: LOVAZA1000 MG PO (13:26)
[2018-04-24 13:28] LABS: TROPONIN-I 0.06 ng/mL (<0.06)
[2018-04-24] MEDS ORDERED: PREDNISONE 10 M10 M1 PO (13:39)
[2018-04-24] MEDS ORDERED: BISACODYL SUPP10 MG RECTAL (13:46)
[2018-04-24] MEDS ORDERED: SENNA-DOCUSATE1 EAC1 PO (13:47)
[2018-04-24] MEDS ORDERED: GLUTOSE GEL 1515 G1 PO (13:48)
[2018-04-24] MEDS ORDERED: GLUCAGEN1 M2 SUBQ (13:51)
[2018-04-24] MEDS ORDERED: DEXTROSE 500.5 GM/ML IV (13:53)
[2018-04-24] MEDS ORDERED: ARANESP40 MCG/0.4 SUBQ (13:54)
[2018-04-24] MEDS ORDERED: LIDOCAINE1 EACH TRANSDERM (13:55)
[2018-04-24] MEDS ORDERED: ONDANSETRON HCL4 M2 PO (13:56)
[2018-04-24] MEDS ORDERED: BENGAY GREASELE57 GM TOP (13:56)
[2018-04-24] MEDS ORDERED: [UNRECOGNIZED DRUG - OTHER] IV (13:58)
[2018-04-24] MEDS ORDERED: DEXTROSE 5% IV (13:58)
[2018-04-24 14:37] LABS: URINE BILIRUBIN NEGATIVE (Negative); URINE BLOOD TRACE (Negative); URINE CLARITY CLEAR; URINE COLOR YELLOW; URINE GLUCOSE-RANDOM* NEGATIVE (Negative); URINE KETONES NEGATIVE (Negative); URINE NITRITE-REFLEX NEGATIVE (Negative); URINE PROTEIN (DIPSTICK) NEGATIVE (Negative)
[2018-04-24 14:38] LABS: URINE LEUKOCYTES-REFLEX NEGATIVE (Negative); URINE UROBILINOGEN 0.2 E.U./dl (0.2-1.0)
[2018-04-24 14:56] LABS: ANISOCYTOSIS 2+; BURR CELLS OCCASIONAL; OVALOCYTES 2+; POIKILOCYTOSIS 3+; SCHISTOCYTES 1+
[2018-04-24 16:51] VITALS: BP 141/52
[2018-04-24 16:58] VITALS: BP 126/54
[2018-04-24 17:35] VITALS: BP 134/61
[2018-04-24 21:47] VITALS: BP 134/68
--- NOTE | 2018-04-24 23:31 | EKG ---
[address] [address] ELECTROCARDIOGRAM REPORT Name: DARRICK GONZALEZ Room #: 208-P ADM IN M.R.#: [id number] Admission: 04/24/18 Attend Phys: Marlo Mahoney Discharge: Date of : 36 Report #: [id number] THIS REPORT FOR: //name// [facility] ED Test Date: 2018-04-24 Test Time: 12:58:59 Pat Name: DARRICK GONZALEZ Department: Room: 208 Gender: M Scallop Cutter: BRIAN : 1940 Requested By: Iveth Lan Order Number: [id number] MD: Chris Landis Measurements Intervals [place] Rate: 74 P: 0 MT: 196 QRS: 45 QRSD: 179 T: -21 QT: 464 QTc: 515 Interpretive Statements Ventricular-paced complexes No further rhythm analysis attempted due to paced rhythm Right bundle branch block Compared to ECG 03/25/2018 01:57:51 Atrial fibrillation no longer present Electronically Signed On 04-24-2018 23:31:19 AD WRITER by Chris Landis [email or web address] <ELECTRONICALLY SIGNED> By: Chris Landis MD 04/24/18 2331 1258 1258 Chris Landis MD /EPI
--- NOTE | 2018-04-25 03:14 | NUR ---
ASSESSMENT DOCUMENTED.PT A/OX4.VSS.PT BEEN RESTING IN NO ACUTE DISTRESS.C/O PAIN TO BACK AND HIPS THAT WAS RELIEVED WITH TYLENOL.PT IN THE CHAIR MOST OF THE NOC,IN BED FOR FEW HOURS.AMBULATED TO BR,VOIDING ADEQUATELY.NO ACTIVE BLEEDING NOTED.MUTIPLE BRUISES TO OZIEL UPPER EXTREMITIES FROM USE OF ANTICOAGULANTS PER PT.SINUS RHYTHM ON MONITOR.CPAP WHILE SLEEPING OTHERWISE ON RA W/O RESP DISTRESS.PT DENIES ANY OTHER NEEDS AT THIS TIME.WILL CONT TO MONITOR PER POC.
[2018-04-25 04:30] VITALS: BP 129/65
--- NOTE | 2018-04-25 06:45 | NUR ---
ASSESSMENT DOCUMENTED.PT RESTING IN THE CHAIR AT THIS TIME.PT WAS IN BED FOR FEW HOURS BUT COULD NOT TOLERATES BED D/T CHRONIC BACK PAIN.CPAP ON WHILE SLEEPING.AMBULATES TO BR WITH STEADY GAIT.TYLENOL GIVEN FOR BACK PAIN W/SOME RELIEF.IVF INFUSING.PT DENIES ANY NEEDS AT THIS TIME.WILL CONT TO MONITOR PER POC.
[2018-04-25 07:05] VITALS: BP 126/49
[2018-04-25 11:55] VITALS: BP 133/55
--- NOTE | 2018-04-25 12:29 | NUR ---
ASSESSMENT-PT LIVES AT HOME WITH HIS WHO IS 1 YR YOUNGER THAN HE. IS INDEPENDENT AND ABLE TO ASSIST HIM AT HOME. NORMALLY DOES THE DRIVING. PT SAYS HE WALKS ON HIS OWN AND DOES HIS OWN ADLS. HE HAS A WALKER AT HOME BUT HAS NOT BEEN USING IT. PT USES A C-PAP. THEY LIVE IN A SPLIT LEVEL HOME. THEY SHARE THE COOKING, CLEANING AND LAUNDRY. PT SAYS HE HAS HAD HH IN THE PAST AND THINKS IT WAS [facility]. THEY HAVE 2 SONS, 2 DTRS AND 11 GRANDCHILDREN IN THE AREA. PT DENIES ANY NEEDS AT THIS TIME. FOLLOWING TO ASSIST WITH DC PLANNING.
--- NOTE | 2018-04-25 12:56 | NUR ---
PER NURSING FAMILY DOES NOT WANT TO RETURN TO [facility] AND WOULD PREFER TO DC HOME WITH SERVICES. PT SAYS HE WOULD BE OPEN TO USING [facility]. [phone], FAX [phone].
[2018-04-25 14:29] VITALS: BP 133/55
--- NOTE | 2018-04-25 14:29 | NUR ---
SPOKE WITH NEMESIO AT [facility] AND THEY WILL ACCEPT PT AT DISCHARGE. POSS. MENDEZ OVER WEEKEND CALL [phone] FAX [phone].
[2018-04-25 15:44] VITALS: BP 140/50
--- NOTE | 2018-04-25 15:47 | NUR ---
[facility] FOLLOWING.
--- NOTE | 2018-04-25 16:06 | NUR ---
ASSESSMENT DOCUMENTED. VSS. AFEBRILE. PT REPORTS HEADACHE. TYLENOL GIVEN PER EMAR. PT RESTING IN CHAIR WITH CALL LIGHT IN REACH. PACED ON THE HEART MONITOR. WILL CONTINUE TO MONITOR.
[2018-04-25 19:44] VITALS: BP 118/53
--- NOTE | 2018-04-26 03:50 | NUR ---
ASSESSMENT DOCUMENTED.PT BEEN SLEEPING PART OF THE NOC IN BED AND THE OTHER PART IN THE CHAIR.A/OX3 WITH CONFUSION ADN FORGETFULNESS AT TIMES.PT SCREAMS AND YELLS WHEN HE WAKES UP TO USE THE RESTROOM.VSS.PT HOPING TO BE DISCHARGED TO HOME TODAY.WILL CONT TO MONITOR.
[2018-04-26 04:20] VITALS: BP 128/57
[2018-04-26 08:00] VITALS: BP 110/59
[2018-04-26 13:09] LABS: HEMOGLOBIN 9.3 gm/dL (14.0-18.0); MCH 28.9 pg (26.0-34.0); MCHC 33.2 g/dL (28.0-37.0); MCV 87.3 fL (80.0-100.0); RBC 3.21 mil/uL (4.50-6.00); RDW 22.4 % (10.5-14.5); WBC 9.8 thou/uL (4.0-11.0)
[2018-04-26 13:22] LABS: ALBUMIN 2.8 g/dL (3.4-5.0); CALCIUM 8.4 mg/dL (8.5-10.1); CREATININE 2.3 mg/dL (0.7-1.3); POTASSIUM 4.2 mmol/L (3.5-5.1); TOTAL PROTEIN 6.1 g/dL (6.4-8.2)
[2018-04-26 16:00] VITALS: BP 113/48
--- NOTE | 2018-04-26 17:53 | NUR ---
ASSESSMENT CHARTED - MEDS PER MAR - GIVEN TYLENOL FOR CO'S OF GENERALIZED PAIN. GARRICK DIET AND FLUIDS, - ACCUCHECKS CHARTED, COVERED PER SLIDING SCALE. DRESSINGS COMPLETED ORDERED SILVADENE/ ABDO AND KERLIX - XEROFORM APPLIED TO LEFT LEG. NO CO'S OF NAUSEA. PT STATING THAT HE IS BORED AND WNATS TO GO HOME- UP IN ROOM AND AMBULATED IN THE HALLS. NO CO'S AT THE RPESENT TIME.
[2018-04-26 21:06] VITALS: BP 130/68
--- NOTE | 2018-04-26 23:28 | NUR ---
PT IS ALERT AND ORIENTED X 4. DENIES PAIN AT THIS TIME. REFUSED TO LET STAFF TAKE HIS GLUCOSE THIS EVENING. STATED THAT 'IT WAS FINE AND IT WAS JUST TAKEN.' ASSESSMENTS CHARTED. WILL CONTINUE TO MONITOR.
[2018-04-27 05:23] VITALS: BP 108/40
[2018-04-27 07:32] VITALS: BP 118/47
[2018-04-27 09:26] LABS: HEMOGLOBIN 8.8 gm/dL (14.0-18.0); MCH 28.5 pg (26.0-34.0); MCHC 32.6 g/dL (28.0-37.0); MCV 87.3 fL (80.0-100.0); RBC 3.1 mil/uL (4.50-6.00); RDW 23.3 % (10.5-14.5); WBC 6.9 thou/uL (4.0-11.0)
[2018-04-27 09:56] LABS: ALBUMIN 2.9 g/dL (3.4-5.0); CALCIUM 8.7 mg/dL (8.5-10.1); CREATININE 2.4 mg/dL (0.7-1.3); TOTAL BILIRUBIN 1.9 mg/dL (<0.1-1.0); TOTAL PROTEIN 6.2 g/dL (6.4-8.2)
[2018-04-27 11:53] VITALS: BP 115/56
[2018-04-27 16:00] VITALS: BP 131/48
[2018-04-27 19:48] VITALS: BP 105/43
--- NOTE | 2018-04-27 20:37 | NUR ---
ASSUMED CARE OF PT AT 0700. PT A&OX4, FORGETFUL AT TIMES. PT IS UP AD OLENA WITH STEADY GAIT. PT'S VITALS WERE WITHIN NORMAL LIMITS AND PT WAS VPACED ON TELEMETRY. PT COMMUNICATES ANXIETY AND BOREDOM, THERAPEUTIC COMMUNICATION, AMBULATION, AND EDUCATION PROVIDED WHICH PARTIALLY HELPED WITH ANXIETY. PT FREQUENTLY ASKS FOR ICECREAM AND NUTRITIONAL EDUCATION REGARDING DIABETIES GIVEN. WILL CONT WITH POC.
[2018-04-28 04:17] LABS: HEMATOCRIT 25.9 % (42.0-52.0); HEMOGLOBIN 8.6 gm/dL (14.0-18.0); MCH 28.7 pg (26.0-34.0); MCHC 33.1 g/dL (28.0-37.0); MCV 86.7 fL (80.0-100.0); RBC 2.99 mil/uL (4.50-6.00); RDW 22.9 % (10.5-14.5); WBC 5.3 thou/uL (4.0-11.0)
[2018-04-28 04:45] VITALS: BP 123/55
[2018-04-28 05:13] LABS: ALBUMIN 2.7 g/dL (3.4-5.0); CALCIUM 8.4 mg/dL (8.5-10.1); CREATININE 2.3 mg/dL (0.7-1.3); POTASSIUM 3.9 mmol/L (3.5-5.1); TOTAL BILIRUBIN 1.6 mg/dL (<0.1-1.0)
--- NOTE | 2018-04-28 05:13 | NUR ---
1900, PT ALERT AND ORIENTED. DENIES SOB, CHEST PAIN. PT REFUSED THE SULFUDIAZINE CREAM APPLICATION AND THE FLUTICASONE NASAL SPRAY. PT HAD REFUSED BG CHECK BUT LATER REQUESTED SOMETHING TO EAT AND WAS COMPLIANT TO BG CHECK= 300. PT REFUSED DRESSING CHANGE OF HER LE WOUNDS. HAS BEEN NPO SINCE MIDNIGHT AWAYS EGD TODAY. WILL CONTINUE TO FOLLOW POC.
[2018-04-28 08:04] VITALS: BP 114/66
[2018-04-28 10:16] VITALS: BP 133/55
[2018-04-28] MEDS ORDERED: DEPAKOTE SPRIN125 MG PO (12:12)
[2018-04-28] MEDS ORDERED: METOPROLOL SUCC25 M1 PO (12:12)
--- NOTE | 2018-04-28 13:34 | NUR ---
Patient to dc home today. Does not want to return to [facility]. Therapy anjali recommends home with HH. [facility] updated.
[2018-04-28 13:47] VITALS: BP 133/55
--- NOTE | 2018-04-28 14:59 | NUR ---
ASSESSMENT DOCUMENTED. PT ALERT AND ORIENTED WITH FORGETFULNESS. DENIED HAVING PAIN. VSS. HAD EGD THIS AM. WOUND CARE TREATMENT PROVIDED IN AM. PT REFUSED WOUND CARE PICTURES TO BE TAKEN.SEEN BY DR. PEARSON. ORDERS GIVEN TO DISCHARGE PT TO HOME WITH HOME HEALTH. DISCHARGE INSTRUCTIONS GIVEN TO PT AND THE SON. PT VERBERLIZE UNDERSTANDING PT LEFT THE FACILITY ACCOMPANIED BY THE SON.
--- NOTE | 2018-05-01 14:09 | PATH ---
[facility] [address] [place] [address] PATHOLOGY RPT PROCEDURE Name: DARRICK IQBAL Gissel Room #: 208-P DIS IN M.R.#: [id number] Admission: 04/24/18 Date of : 36 Discharge: 04/28/18 Report #: [id number] Path Case #: [id number] L[facility] Accession Number: [id number] . 01 Material submitted: . GASTRIC BX R/O H. PYLORI . 01 Clinical history: . Pre-OP DX: Anemia, heme positive stool Post-OP DX: Gastritis . 02 Diagnosis: Gastric mucosa, gastric rule out H. pylori, endoscopic biopsy: - Mild reactive gastropathy. - Negative for intestinal metaplasia or atrophy. - Negative for Helicobacter pylori (properly controlled immunohistochemical stains performed. (IUV/db; 04/29/2018) LBQ/04/29/2018 . 02 Electronically signed: . Albania Ladd MD, Pathologist NPI- [id number] . 01 Gross description: . Received in formalin labeled "Darrick Iqbal, gastric BX, rule out H. pylori," are multiple segments of mota soft tissue measuring 0.8 x 0.3 x 0.1 cm in aggregate dimensions. The specimen is filtered and entirely submitted in cassette A1. (TSD; 04/28/2018) TOB/TOB . 02 Pathologist provided ICD-10: K31.9 . 02 CPT . 739717, [id number] Specimen Comment: A courtesy copy of this report has been sent to Specimen Comment: [phone], , . Specimen Comment: Report sent to , and Specimen Comment: A duplicate report has been generated due to demographic updates. Performed at: [address], [place] [id number] MD Vladislav Farias MD Phone: [phone] Performed at: [address] [address] PATHOLOGY RPT PROCEDURE Name: DARRICK IQBAL W Room #: 208-P DIS IN M.R.#: [id number] Admission: 04/24/18 Date of : 36 Discharge: 04/28/18 Report #: [id number] Path Case #: [id number] [facility] [id number] MD Albania Ladd MD Phone: [phone]
== END 2018-04-28 14:57 | disposition home health service (06) | DRG 377 ==
LOC: ER 12:18 → 2N 15:38 → EROBS 15:38 → 2N 16:59 → ENTRNSPT 04-28 14:48 → 2N 04-28 14:57
PROVIDERS: Hospitalist; Internal Medicine; Physician Assistant; ADMIT Family Medicine
PROC: 0DB68ZX Excision of Stomach, Via Natural or Artificial Opening Endoscopic, Diagnostic (ICD-10-PCS; principal; 2018-04-28)
DX: K29.01 Acute gastritis with bleeding (principal); E43 Unspecified severe protein-calorie malnutrition; N17.9 Acute kidney failure, unspecified; N18.4 Chronic kidney disease, stage 4 (severe); F03.91 Unspecified dementia, unspecified severity, with behavioral disturbance; J44.9 Chronic obstructive pulmonary disease, unspecified; M19.90 Unspecified osteoarthritis, unspecified site; M10.9 Gout, unspecified; I48.91 Unspecified atrial fibrillation; K74.60 Unspecified cirrhosis of liver; E03.9 Hypothyroidism, unspecified; I25.5 Ischemic cardiomyopathy; D64.9 Anemia, unspecified; F32.9 Major depressive disorder, single episode, unspecified; N40.0 Benign prostatic hyperplasia without lower urinary tract symptoms; E11.51 Type 2 diabetes mellitus with diabetic peripheral angiopathy without gangrene; I49.5 Sick sinus syndrome; K75.9 Inflammatory liver disease, unspecified; E11.22 Type 2 diabetes mellitus with diabetic chronic kidney disease; I25.10 Atherosclerotic heart disease of native coronary artery without angina pectoris; R41.0 Disorientation, unspecified; E78.00 Pure hypercholesterolemia, unspecified; Z90.49 Acquired absence of other specified parts of digestive tract; Z95.0 Presence of cardiac pacemaker; Z88.0 Allergy status to penicillin; Z95.820 Peripheral vascular angioplasty status with implants and grafts; Z88.8 Allergy status to other drugs, medicaments and biological substances; Z87.891 Personal history of nicotine dependence; Z82.49 Family history of ischemic heart disease and other diseases of the circulatory system; Z95.1 Presence of aortocoronary bypass graft; Z79.82 Long term (current) use of aspirin; Z79.899 Other long term (current) drug therapy; Z86.010 Personal history of colon polyps; Z68.28 Body mass index [BMI] 28.0-28.9, adult
CPT/HCPCS: 10081; 62110; 62900

== ENCOUNTER 2018-06-19 17:35 | Emergency (ER) | payer OTHER ==
[~2018-06-19] VITALS: Ht 175.3 cm; Wt 97.5 kg
[~2018-06-19 17:35] MED LIST changes: +ARANESP40 MCG/0.4 SUBQ; +BENGAY GREASELE57 GM TOP; +BISACODYL SUPP10 MG RECTAL; +DEPAKOTE SPRIN125 MG PO; +DEXTROSE 5% IV; +DEXTROSE 500.5 GM/ML IV; +GLUCAGEN1 M2 SUBQ; +GLUTOSE GEL 1515 G1 PO; +HYDROCORTISONE30 G9 RECTAL; +LIDOCAINE1 EACH TRANSDERM; +METOPROLOL SUCC25 M1 PO; +ONDANSETRON HCL4 M2 PO; +PREDNISONE 10 M10 M1 PO; +SENNA-DOCUSATE1 EAC1 PO; +[UNRECOGNIZED DRUG - OTHER] IV
[2018-06-19 19:04] LABS: HEMATOCRIT 26.8 % (42.0-52.0); HEMOGLOBIN 8.7 gm/dL (14.0-18.0); MCHC 32.6 g/dL (28.0-37.0); MCV 88.9 fL (80.0-100.0); RBC 3.01 mil/uL (4.50-6.00); RDW 22.2 % (10.5-14.5); WBC 3.5 thou/uL (4.0-11.0)
[2018-06-19 19:15] LABS: CALCIUM 9.5 mg/dL (8.5-10.1); CREATININE 2.2 mg/dL (0.7-1.3)
[2018-06-19 19:30] LABS: ABSOLUTE NEUTROPHILS 2.2 thou/uL (1.4-8.2)
[2018-06-19 19:32] LABS: BURR CELLS OCCASIONAL; OVALOCYTES 1+
[2018-06-19 19:36] LABS: PLATELET COUNT 99 thou/uL (150-400)
[2018-06-19 21:47] VITALS: BP 127/85
== END 2018-06-19 21:50 | disposition home or self-care (01) ==
LOC: ER 17:35
PROVIDERS: Emergency Medicine
DX: R60.0 Localized edema (principal); G47.30 Sleep apnea, unspecified; J44.9 Chronic obstructive pulmonary disease, unspecified; M19.90 Unspecified osteoarthritis, unspecified site; K21.9 Gastro-esophageal reflux disease without esophagitis; M10.9 Gout, unspecified; E78.00 Pure hypercholesterolemia, unspecified; I48.91 Unspecified atrial fibrillation; I12.9 Hypertensive chronic kidney disease with stage 1 through stage 4 chronic kidney disease, or unspecified chronic kidney disease; E11.22 Type 2 diabetes mellitus with diabetic chronic kidney disease; N18.4 Chronic kidney disease, stage 4 (severe); E03.9 Hypothyroidism, unspecified; I42.9 Cardiomyopathy, unspecified; Z90.49 Acquired absence of other specified parts of digestive tract; Z87.891 Personal history of nicotine dependence; Z88.0 Allergy status to penicillin; Z88.4 Allergy status to anesthetic agent; Z88.6 Allergy status to analgesic agent; Z95.0 Presence of cardiac pacemaker

== ENCOUNTER → 2018-06-30 | Outpatient (CLI) | payer OTHER | LOC: HYPER 06-25 10:22 | DX: S80.812A Abrasion, left lower leg, initial encounter (principal); S80.811A Abrasion, right lower leg, initial encounter; E11.51 Type 2 diabetes mellitus with diabetic peripheral angiopathy without gangrene; E11.22 Type 2 diabetes mellitus with diabetic chronic kidney disease; I13.0 Hypertensive heart and chronic kidney disease with heart failure and stage 1 through stage 4 chronic kidney disease, or unspecified chronic kidney disease; N18.9 Chronic kidney disease, unspecified; I50.9 Heart failure, unspecified; E78.5 Hyperlipidemia, unspecified; E03.9 Hypothyroidism, unspecified; G47.30 Sleep apnea, unspecified; I48.91 Unspecified atrial fibrillation; I25.10 Atherosclerotic heart disease of native coronary artery without angina pectoris; I27.20 Pulmonary hypertension, unspecified; J44.9 Chronic obstructive pulmonary disease, unspecified; Z95.1 Presence of aortocoronary bypass graft; Z79.4 Long term (current) use of insulin; Z87.891 Personal history of nicotine dependence; Z95.818 Presence of other cardiac implants and grafts; Z95.0 Presence of cardiac pacemaker; X58.XXXA Exposure to other specified factors, initial encounter; Y93.89 Activity, other specified; Y92.89 Other specified places as the place of occurrence of the external cause; Y99.8 Other external cause status ==

== ENCOUNTER → 2018-07-08 | Outpatient (CLI) | payer OTHER | LOC: HYPER 07:19 | DX: S80.811D Abrasion, right lower leg, subsequent encounter (principal); S80.812D Abrasion, left lower leg, subsequent encounter; E11.51 Type 2 diabetes mellitus with diabetic peripheral angiopathy without gangrene; I25.10 Atherosclerotic heart disease of native coronary artery without angina pectoris; E11.22 Type 2 diabetes mellitus with diabetic chronic kidney disease; I13.0 Hypertensive heart and chronic kidney disease with heart failure and stage 1 through stage 4 chronic kidney disease, or unspecified chronic kidney disease; N18.9 Chronic kidney disease, unspecified; I50.9 Heart failure, unspecified; I48.91 Unspecified atrial fibrillation; E78.5 Hyperlipidemia, unspecified; E03.9 Hypothyroidism, unspecified; I27.20 Pulmonary hypertension, unspecified; G47.30 Sleep apnea, unspecified; J44.9 Chronic obstructive pulmonary disease, unspecified; Z79.4 Long term (current) use of insulin; Z95.818 Presence of other cardiac implants and grafts; Z95.1 Presence of aortocoronary bypass graft; Z87.891 Personal history of nicotine dependence; X58.XXXD Exposure to other specified factors, subsequent encounter ==

== ENCOUNTER → 2018-07-29 | Outpatient (CLI) | payer OTHER | LOC: HYPER 07:02 | DX: S80.812D Abrasion, left lower leg, subsequent encounter (principal); S80.811D Abrasion, right lower leg, subsequent encounter; E11.51 Type 2 diabetes mellitus with diabetic peripheral angiopathy without gangrene; E11.22 Type 2 diabetes mellitus with diabetic chronic kidney disease; I13.0 Hypertensive heart and chronic kidney disease with heart failure and stage 1 through stage 4 chronic kidney disease, or unspecified chronic kidney disease; N18.9 Chronic kidney disease, unspecified; I50.9 Heart failure, unspecified; I25.10 Atherosclerotic heart disease of native coronary artery without angina pectoris; I48.91 Unspecified atrial fibrillation; E78.5 Hyperlipidemia, unspecified; E03.9 Hypothyroidism, unspecified; R60.0 Localized edema; I27.20 Pulmonary hypertension, unspecified; G47.30 Sleep apnea, unspecified; J44.9 Chronic obstructive pulmonary disease, unspecified; Z95.818 Presence of other cardiac implants and grafts; Z79.4 Long term (current) use of insulin; Z95.0 Presence of cardiac pacemaker; Z87.891 Personal history of nicotine dependence; X58.XXXD Exposure to other specified factors, subsequent encounter ==

== ENCOUNTER 2019-03-09 12:14 | Inpatient (IN) | payer OTHER ==
[~2019-03-09] VITALS: Ht 175.3 cm; Wt 88.9 kg
[~2019-03-09 12:14] MED LIST changes: +MELATONIN10 M1 PO; -MELATONIN5 M1 PO; +SORBITOL1 ML PO; -XARELTO15 MG; +XARELTO15 MG PO; -[UNRECOGNIZED DRUG - OTHER] PO
[2019-03-09 12:15] VITALS: BP 137/60
[2019-03-09] MEDS ORDERED: ZYLOPRIM300 MG PO (12:38)
[2019-03-09] MEDS ORDERED: CRESTOR20 MG PO (12:40)
[2019-03-09] MEDS ORDERED: TRAZODONE HCL50 MG PO (12:41)
[2019-03-09] MEDS ORDERED: TRAZODONE HCL100 MG PO (12:41)
[2019-03-09] MEDS ORDERED: TOUJEO MAX300 UNIT/1 SUBQ (12:42)
[2019-03-09 13:25] LABS: EOSINOPHILS 0.9 % (0.0-3.0); MCHC 32.9 g/dL (28.0-37.0); WBC 5.9 thou/uL (4.0-11.0)
[2019-03-09 13:27] LABS: ABSOLUTE NEUTROPHILS 4.8 thou/uL (1.4-8.2); BASOPHILS 0.9 % (0.0-2.0); CALCIUM 9.7 mg/dL (8.5-10.1); CREATININE 2.6 mg/dL (0.7-1.3); LYMPHOCYTES 8.6 % (24.0-44.0); MCH 35.2 pg (26.0-34.0); MCV 107.1 fL (80.0-100.0); MONOCYTES 3.9 % (1.0-8.0); POLYS 85.7 % (36.0-66.0); POTASSIUM 4.4 mmol/L (3.5-5.1); RDW 19.8 % (10.5-14.5)
[2019-03-09 13:30] LABS: HEMATOCRIT 18.2 % (42.0-52.0)
[2019-03-09 13:33] LABS: ALBUMIN 3.9 g/dL (3.4-5.0); TOTAL BILIRUBIN 9.8 mg/dL (<0.1-1.0); TOTAL PROTEIN 7.3 g/dL (6.4-8.2)
[2019-03-09 14:30] VITALS: BP 141/47
[2019-03-09 15:08] LABS: ANISOCYTOSIS 2+; HYPOCHROMASIA 2+; MACROCYTES 2+; PLATELET COUNT 144 thou/uL (150-400); PLATELET ESTIMATE NORMAL; POLYCHROMASIA 1+
[2019-03-09 15:37] LABS: APTT 26.7 Seconds (24.5-32.8); INR 1.1; PROTIME 11.8 Seconds (9.3-11.4)
--- NOTE | 2019-03-09 16:01 | NUR ---
RETURNED FROM RADIOLOGY
--- NOTE | 2019-03-09 17:21 | NUR ---
LAB NOTIFIED ME THEY ARE ENROUTE TO OBTAIN 2 PINK TUBES ON THE PT AT THIS TIME.
[2019-03-09 19:00] VITALS: BP 153/81
[2019-03-09 19:48] VITALS: BP 128/73
[2019-03-10 00:50] VITALS: BP 103/60
[2019-03-10] MEDS ORDERED: MIRALAX17 GM PO (00:59)
[2019-03-10] MEDS ORDERED: VOLTAREN GEL 1100 G1 TOP (00:59)
[2019-03-10] MEDS ORDERED: FEOSOL325 M1 PO (01:00)
--- NOTE | 2019-03-10 01:05 | NUR ---
ADMIT FROM ED. AND FAMILY AT BEDSIDE. IS DPOA AND WILL BRING IN PAPERS FROM HOME. PT C/O NAUSEA SINCE YESTERDAY. MED HX COPD, HTN, DM, GOUT, PACEMAKER, LIVER CIRRHOSIS, CKD, LOW HGB, JAUNDICE. SBA WITH TRANSFERS UNSTEADY, WALKER AT HOME. PT REQUESTING SNACK, CL LIQ DIET SODA PROVIDED. PTS GLASSES AND DENTURES AT HOME. PT REFUSED CPAP AND O2 FOR RT. 2 PERIPHERAL IV. PROTONIX DRIP INTACT. BLOOD CONSENTS SIGNED. TELE AFIBB BBB.
[2019-03-10 05:01] VITALS: BP 119/56
[2019-03-10 06:31] LABS: ABSOLUTE NEUTROPHILS 4.2 thou/uL (1.4-8.2); BASOPHILS 0.5 % (0.0-2.0)
[2019-03-10 06:33] LABS: EOSINOPHILS 0.4 % (0.0-3.0); MCH 36.2 pg (26.0-34.0); MCHC 32.8 g/dL (28.0-37.0); MCV 110.1 fL (80.0-100.0); PLATELET COUNT 137 thou/uL (150-400); POLYS 84.1 % (36.0-66.0); RBC 1.53 mil/uL (4.50-6.00); RDW 21.2 % (10.5-14.5)
[2019-03-10 06:43] LABS: HEMOGLOBIN 5.5 gm/dL (14.0-18.0)
[2019-03-10 06:44] LABS: HEMATOCRIT 16.9 % (42.0-52.0)
[2019-03-10 07:04] LABS: ALBUMIN 3.5 g/dL (3.4-5.0); CALCIUM 9.4 mg/dL (8.5-10.1); CREATININE 2.9 mg/dL (0.7-1.3); MAGNESIUM 2.2 mg/dL (1.8-2.4); POTASSIUM 4.5 mmol/L (3.5-5.1); TOTAL BILIRUBIN 8.2 mg/dL (<0.1-1.0); TOTAL PROTEIN 6.6 g/dL (6.4-8.2)
[2019-03-10 07:28] LABS: URINE BILIRUBIN NEGATIVE (Negative); URINE BLOOD NEGATIVE (Negative); URINE CLARITY CLEAR; URINE COLOR YELLOW; URINE GLUCOSE-RANDOM* NEGATIVE (Negative); URINE KETONES NEGATIVE (Negative); URINE LEUKOCYTES-REFLEX TRACE (Negative); URINE NITRITE-REFLEX NEGATIVE (Negative); URINE PROTEIN (DIPSTICK) 1+ (Negative); URINE UROBILINOGEN 0.2 E.U./dl (0.2-1.0)
[2019-03-10 07:39] VITALS: BP 116/51
[2019-03-10 07:39] LABS: HYALINE CASTS 0-3 Few /LPF (None Seen)
[2019-03-10 07:40] LABS: BACTERIA-REFLEX 1-9 Few /HPF (None Seen); CASTS None Seen /LPF (None Seen); CRYSTALS None Seen /LPF (None Seen); SQUAMOUS 0-3 Few /LPF (0-3); URINE RBC None Seen /HPF (0-2); URINE WBC-REFLEX None Seen /HPF (0-5)
--- NOTE | 2019-03-10 07:59 | EKG ---
[address] [address] ELECTROCARDIOGRAM REPORT Name: DARRICK GONZALEZ Gissel Room #: 357-P ADM IN M.R.#: [id number] Admission: 03/09/19 Attend Phys: Jerrod Bernstein MD Discharge: Date of : 36 Report #: [id number] THIS REPORT FOR: //name// [facility] ED Test Date: 2019-03-09 Test Time: 12:28:03 Pat Name: DARRICK GONZALEZ Department: Room: 357 Gender: M Director Hospice Operations: AUGUSTIN : 1940 Requested By: Nighat Arteaga Order Number: [id number] MD: Ace Arnett Measurements Intervals [place] Rate: 92 P: OK: QRS: 46 QRSD: 166 T: -44 QT: 429 QTc: 531 Interpretive Statements Atrial fibrillation Right bundle branch block Compared to ECG 04/24/2018 12:58:59 Ventricular-paced complex(es) or rhythm no longer present Electronically Signed On 03-10-2019 7:59:27 CATTLE DRIVER by Ace Arnett [email or web address] <ELECTRONICALLY SIGNED> By: Ace Arnett MD, [facility] 03/10/19 0759 1228 1228 Ace Arnett MD, [facility] /EPI
--- NOTE | 2019-03-10 10:47 | NUR ---
INITIAL ASSESSMENT: Pt evaluated for d/c planning needs. Reviewed chart and spoke with nurse, pt and pt's daughter. Pt lives in house with spouse and was independent with ADL's prior to admission. Pt has diagnosis of dementia. Pt has walker and CPAP at home. Pt has had [facility] in the past. Pt plans on returning home on d/c from hospital. Will remain available to assist as needed.
[2019-03-10 11:01] LABS: ABSOLUTE RETIC COUNT 0.1813 10^6/uL; OBSERVED RETIC COUNT 11.46 % (0.6-2.6)
[2019-03-10] MEDS ORDERED: TORSEMIDE20 MG PO (11:21)
[2019-03-10] MEDS ORDERED: TRIAMCINOLONE A80 G2 TOP (11:24)
[2019-03-10 11:35] VITALS: BP 121/55
[2019-03-10 16:00] VITALS: BP 114/43
[2019-03-10 19:15] VITALS: BP 131/59
--- NOTE | 2019-03-10 20:06 | NUR ---
PT WAS NPO TIL AROUND 1630 WHEN GI ORDERED CLEAR LIQ...HE TOLERATED CLIQ WELL...DENIES PAIN AT PRESENT
--- NOTE | 2019-03-10 21:37 | NUR ---
PT WATCHING TV RESTING IN BED, PT REPORTED DURING THE DAY HE HAD INTERMITTENT NAUSEA BUT WAS ABLE TO HAVE CL LIQUIDS, STATED HIS FAMILY VISITED. PROTONIX DRIP CONTINUES. DENIES NAUSEA AT THIS TIME. PT CONTINUES TO ASK FOR ASSISTANCE WITH AMBULATION. REBEKAH HOSE ON. JAUNDICE REMAINS. ABD REMAINS DISTENDED. PT DID YELL OUT AND CURSE WHEN STAFF TURNED ON LIGHT AT 2114, WHEN NURSE EXPLAINED TO PT THAT SHE NEEDED TO REVIEW MEDS AND NEED FOR INSULIN PT CALMED DOWN. PT STATED HE WANTS TO SLEEP AND THAT HE DOES NOT WANT HIS CPAP. PT ALSO DECLINED SCDS.
--- NOTE | 2019-03-10 22:17 | NUR ---
PT AMBULATED TO RESTROOM AND COMPLAINED OF NAUSEA, PT YELLING, GROANING AND DRY HEAVING, PT GIVEN IV PRN. PT IMMEDIATELY STOPPED YELLING GROANING AND DRANK SPRITE. PT RESTING IN LOUNGE CHAIR VERSUS RETURNING TO BED, ALARM ON.
[2019-03-11 04:05] VITALS: BP 122/53
--- NOTE | 2019-03-11 05:15 | NUR ---
PT REPORTED NAUSEA WITH DRY HEAVES PRN IV ZOFRAN PROVIDED.
[2019-03-11 07:39] VITALS: BP 100/59
[2019-03-11 09:07] LABS: HEMOGLOBIN 5.4 g/dL (13.0-17.7)
[2019-03-11 09:16] LABS: PLATELET COUNT 157 thou/uL (150-400); RBC 1.43 mil/uL (4.50-6.00); WBC 5.2 thou/uL (4.0-11.0)
[2019-03-11 09:17] LABS: MCHC 31.1 g/dL (28.0-37.0)
[2019-03-11 09:29] LABS: HEMOGLOBIN 5.3 gm/dL (14.0-18.0)
[2019-03-11 09:49] LABS: ABSOLUTE NEUTROPHILS 4.4 thou/uL (1.4-8.2); ANISOCYTOSIS 3+; HYPOCHROMASIA 3+; MACROCYTES 2+; METAMYELOCYTES 1 %; NUCLEATED RBCS 2 /100WBC; PLATELET ESTIMATE NORMAL; POLYCHROMASIA 2+
[2019-03-11 11:39] LABS: ALBUMIN 3.7 g/dL (3.4-5.0); CALCIUM 9.3 mg/dL (8.5-10.1); POTASSIUM 4.9 mmol/L (3.5-5.1); TOTAL BILIRUBIN 8.7 mg/dL (<0.1-1.0); TOTAL PROTEIN 6.6 g/dL (6.4-8.2)
[2019-03-11 12:45] LABS: % SATURATION 72 % (20-39); IRON 218 ug/dL (65-175); TIBC 301 ug/dL (250-450)
[2019-03-11 13:47] VITALS: BP 100/59
--- NOTE | 2019-03-11 13:52 | NUR ---
SW reviewed chart and spoke with nursing and attending physician. Pt is progressing towards goals for discharge. Discharge home is anticipated for Saturday, 03/13. Recommendation made for pt to have services. NOA met with pt and family at bedside to discuss discharge plan. Pt and son are agreeable with services. SW provided options. Pt and son request referral to be sent to [facility], as pt has used [facility] in the past. NOA faxed referral to [facility] and spoke with Chandrika in intake to notify of new referral. Final discharge orders/summary will need to be faxed to when available. Pt's family will be able to provide transportation home. NOA is following to assist as needed with discharge planning. [facility]--
[2019-03-11 15:26] VITALS: BP 94/71
[2019-03-11 19:16] VITALS: BP 134/57
--- NOTE | 2019-03-11 19:49 | NUR ---
pt is A&O X3, PT 's vs are stable, RN has called Dr to report pt's hgb5.3 today , new order received, pt does not hasve n/v and s/s of GI bleeding by this time.
--- NOTE | 2019-03-11 23:23 | NUR ---
SON IN LAW BROUGHT IN CPAP FROM HOME AND RT NOTIFIED.
--- NOTE | 2019-03-11 23:50 | NUR ---
PT UP IN CHAIR VISITING WITH FAMILY UPON ARRIVAL TO SHIFT. PROTONIX IV DCD. PT ASKING FOR SNACK, NO C/O NAUSEA. REMAINS JAUNDICED, ABD DISTENDED, CHAIR ALARM GAIT UNSTEADY, PT REMAIS FORGETFUL ASKED FOR SNACK X2. COMPLIANT WTIH FSBS AND HS MEDS. CPAP ON. PT REQUESTED PRN FOR NAUSEA AFTER AMBULATION TO RESTROOM AND PROVIDED. NO C/O PAIN.
--- NOTE | 2019-03-12 00:03 | NUR ---
PER PHARMACY REQUEST CALLED TO GI TO CLARIFY IV IRON PENDING ORDER.LABS WNL, DID NOT ORDER IV IRON.
--- NOTE | 2019-03-12 02:54 | NUR ---
PT YELLED OUT I AM SO SICK, WHEN STAFF OFFERED ASSISTANCE OR MEDICATIONS HE REFUSED AND STATED HE WAS GOING BACK TO BED.
[2019-03-12 04:15] VITALS: BP 136/54
[2019-03-12 07:08] VITALS: BP 113/36
[2019-03-12 10:58] LABS: WBC 6.1 thou/uL (4.0-11.0)
[2019-03-12 11:00] LABS: MCH 38.2 pg (26.0-34.0); MCHC 31.7 g/dL (28.0-37.0); MCV 120.2 fL (80.0-100.0); PLATELET COUNT 151 thou/uL (150-400); RBC 1.35 mil/uL (4.50-6.00); RDW 25.9 % (10.5-14.5)
[2019-03-12 11:12] LABS: HEMATOCRIT 16.3 % (42.0-52.0)
[2019-03-12 11:13] LABS: HEMOGLOBIN 5.2 gm/dL (14.0-18.0)
[2019-03-12 11:19] LABS: ALBUMIN 3.6 g/dL (3.4-5.0); CALCIUM 9.1 mg/dL (8.5-10.1); CREATININE 3.5 mg/dL (0.7-1.3); POTASSIUM 5.1 mmol/L (3.5-5.1); TOTAL BILIRUBIN 5.7 mg/dL (<0.1-1.0); TOTAL PROTEIN 6.8 g/dL (6.4-8.2)
[2019-03-12 12:11] LABS: ABSOLUTE NEUTROPHILS 5.6 thou/uL (1.4-8.2); ANISOCYTOSIS 3+; MACROCYTES 3+; METAMYELOCYTES 2 %; NUCLEATED RBCS 2 /100WBC; OVALOCYTES 1+
[2019-03-12 12:12] LABS: POLYCHROMASIA SLIGHT; TEARDROPS FEW
[2019-03-12 15:01] VITALS: BP 106/45
--- NOTE | 2019-03-12 18:56 | NUR ---
pt is A&OX3, PT'S vs are stable, RN has called dr to report pt's hgb 5.2, hct 16.3 today, new order reveived, but pt does have blood transfusion , because pt has difficult type and cross, pt denies sob and n/v by this time. pt will plan to do EGD and colonoscopy 03/13/19, pt has order to start take medication at 1800pm, but pt refused to take , RN has called pt's son to help, RN will report to next shift.
[2019-03-12 19:24] VITALS: BP 121/48
--- NOTE | 2019-03-13 03:28 | NUR ---
PATIENT IS ALER TO SELF. PATIENT IS WEAK. HGB LOW. PENDING EGD AND COLONOSCOPY THIS AM. BOWEL PREP COMPLETE. NPO AT MIDNIGHT. PATIENT IS YELLS OUT AT TIMES BUT PLEASANT. PATIENT IS ROOM AIR. PATIENT IS RESTING COMFORTABLY IN BED. WCM.
[2019-03-13 03:46] VITALS: BP 125/53
[2019-03-13 04:41] LABS: MCH 38.6 pg (26.0-34.0); MCHC 31.6 g/dL (28.0-37.0); MCV 122.1 fL (80.0-100.0); RBC 1.43 mil/uL (4.50-6.00); RDW 25.7 % (10.5-14.5); WBC 8.3 thou/uL (4.0-11.0)
[2019-03-13 04:48] LABS: HEMATOCRIT 17.5 % (42.0-52.0); HEMOGLOBIN 5.5 gm/dL (14.0-18.0)
[2019-03-13 04:55] LABS: ALBUMIN 3.7 g/dL (3.4-5.0); CALCIUM 8.9 mg/dL (8.5-10.1); CREATININE 3.7 mg/dL (0.7-1.3); TOTAL BILIRUBIN 5.2 mg/dL (<0.1-1.0); TOTAL PROTEIN 6.4 g/dL (6.4-8.2)
[2019-03-13 05:07] LABS: POTASSIUM 5.5 mmol/L (3.5-5.1)
[2019-03-13 07:13] VITALS: BP 138/51
--- NOTE | 2019-03-13 10:42 | NUR ---
PT IS OFF THE UNIT FOR EGD/COLONOSCOPY, FAMILY WAS AT BEDSIDE.
[2019-03-13 12:56] VITALS: BP 132/51
--- NOTE | 2019-03-13 14:27 | NUR ---
SW reviewed chart and spoke with nursing. Pt had EGD earlier today. Plan is for pt to discharge home with services when medically stable. Final discharge orders/summary will need to be faxed to HH when available. Pt's family will be able to provide transportation home. [facility]A is following to assist as needed with discharge planning. ALFREDO --
[2019-03-13 15:46] VITALS: BP 128/46
--- NOTE | 2019-03-13 18:26 | NUR ---
PT WENT DOWN TO EGD/COLONOSCOPY EARLIER TODAY. TOLERATING REGULAR DIET THIS EVENING. PT UP WITH SBA.
[2019-03-13 19:04] LABS: URINE BILIRUBIN NEGATIVE (Negative); URINE BLOOD NEGATIVE (Negative); URINE CLARITY CLEAR; URINE COLOR YELLOW; URINE GLUCOSE-RANDOM* NEGATIVE (Negative); URINE KETONES NEGATIVE (Negative); URINE LEUKOCYTES NEGATIVE (Negative); URINE NITRITE NEGATIVE (Negative); URINE PROTEIN (DIPSTICK) TRACE (Negative); URINE SPECIFIC GRAVITY 1.015 (1.005-1.035); URINE UROBILINOGEN 0.2 E.U./dl (0.2-1.0)
[2019-03-13 19:10] LABS: URINE CREATININE-RANDOM* 67.4 mg/dL; URINE PROTEIN-RANDOM* 25.1 mg/dL (<11.9)
[2019-03-13 19:35] VITALS: BP 144/49
[2019-03-13 20:41] LABS: SMEAR FOR EOSINOPHILS No Eosinophils Seen
--- NOTE | 2019-03-14 03:02 | NUR ---
PATIENT IS PROGRESSING SLOWLY IN HIS CARE PLAN. VITAL SIGNS STABLE WITH PATIENT HAVING NO COMPLAINTS OF PAIN. PATIENT DID FREQUENTLY COMPLAIN OF NAUSEA WHICH WAS TREATED BY NURSE THROUGH MEDICATION AND NON PHARMACOLOGICAL INTERVENTIONS. MOSTLY ORIENTED, PATIENT DID EXHIBIT MUCH FORGETFULLNESS AND WAS IMPULSIVE AT TIMES. NO EVIDENCE OF BLEEDING NOTED. PATIENT WAS ABLE TO AMBULATE TO RESTROOM WITH STANDBY ASSISTANCE MULTIPLE TIMES INCIDENT FREE. CONTINUE PLAN OF CARE.
[2019-03-14 03:41] LABS: RDW 26.1 % (10.5-14.5)
[2019-03-14 03:43] LABS: MCH 38.6 pg (26.0-34.0); MCHC 31.4 g/dL (28.0-37.0); MCV 122.7 fL (80.0-100.0); RBC 1.44 mil/uL (4.50-6.00); WBC 6.9 thou/uL (4.0-11.0)
[2019-03-14 03:51] LABS: ALBUMIN 3.4 g/dL (3.4-5.0); CALCIUM 8.4 mg/dL (8.5-10.1); CREATININE 3.3 mg/dL (0.7-1.3); PHOSPHORUS 4.6 mg/dL (2.5-4.9); TOTAL BILIRUBIN 4.3 mg/dL (<0.1-1.0); TOTAL PROTEIN 6.4 g/dL (6.4-8.2)
[2019-03-14 03:53] LABS: HEMOGLOBIN 5.5 gm/dL (14.0-18.0)
[2019-03-14 03:54] LABS: HEMATOCRIT 17.6 % (42.0-52.0)
[2019-03-14 03:57] LABS: POTASSIUM 5.3 mmol/L (3.5-5.1)
[2019-03-14 04:25] VITALS: BP 143/67
[2019-03-14 07:16] VITALS: BP 158/71
[2019-03-14 15:21] VITALS: BP 141/61
--- NOTE | 2019-03-14 18:27 | NUR ---
PT is A&OX3, PT is continuing IV fliud , pt's hgb 5.5 today, no transfusion at this time ,because pt has difficul to type and crose blood, pt gets up to bathroom with assist, pt denies pain , sob and n/v today.
[2019-03-14 19:51] VITALS: BP 147/69
--- NOTE | 2019-03-15 02:22 | NUR ---
ASSESSMENT: PT REMAIN ALERT AND ORIENT TIMES THREE. FORGETFUL TO SITUATION AND TIME. ASSUMED CARE OF THIS PT AT 2300. PT WAS SITTING IN THE RECYCLINER AT THE TIME OF MY ASSESSMENT. PT REQUESTED TO GET IN BED. SHORTLY AFTERWARDS PT C/O NOT BEING ABLE TO GET ENOUGH AIR. PT WAS SATTING 100% WITH CPAP AND THEN AGAIN WAS SATTING 98% ON 2 LITERS. PT WAS RESTLESS AND WAS GIVEN A REMERON TO HELP ACQUIRE SLEEP. PT REMAINED RESTLESS AND THEN WAS ASSISTED TO THE RECYCLINER WHERE PT WENT TO SLEEP AND NO FURTHER C/O SOA,. LUNGS SOUNDS UNCHANGED SINCE EARLIER ASSESSMENT. VSS, AFEBRILE. SLOW PROGRESS TOWARDS DC GOALS, WILL CONTINUE TO MONITOR.
[2019-03-15 05:27] LABS: MCH 38.8 pg (26.0-34.0); MCHC 31.2 g/dL (28.0-37.0); MCV 124.2 fL (80.0-100.0); RBC 1.41 mil/uL (4.50-6.00); RDW 25.8 % (10.5-14.5); WBC 6.7 thou/uL (4.0-11.0)
[2019-03-15 05:42] VITALS: BP 119/51
[2019-03-15 05:48] LABS: ALBUMIN 3.2 g/dL (3.4-5.0); CALCIUM 8.3 mg/dL (8.5-10.1); CREATININE 2.8 mg/dL (0.7-1.3)
[2019-03-15 05:51] LABS: TOTAL BILIRUBIN 4.1 mg/dL (<0.1-1.0)
[2019-03-15 06:02] LABS: HEMOGLOBIN 5.5 gm/dL (14.0-18.0)
[2019-03-15 06:03] LABS: HEMATOCRIT 17.6 % (42.0-52.0)
[2019-03-15 07:08] LABS: COMPLEMENT-C3 111 mg/dL (82-167); COMPLEMENT-C4 44 mg/dL (14-44)
[2019-03-15 07:26] VITALS: BP 145/68
--- NOTE | 2019-03-15 11:58 | NUR ---
pt's assessment has done, pt is A&OX3, but pt is fogetful, PT's vs and o2sat are stable, RN has reported to DR about pt's hgb 5.5, pt eats and drinking well, New order has received, pt's IV fluid has D/C, PT is off O2 now , pt denies SOB , pt gets up to chair with assist, pt is relaxing now.
[2019-03-15 15:04] VITALS: BP 149/72
[2019-03-15 20:02] VITALS: BP 149/68
--- NOTE | 2019-03-16 03:18 | NUR ---
PATIENT IS PROGRESSING SLOWLY IN HIS CARE PLAN. VITAL SIGNS STABLE WITH PATIENT HAVING NO COMPLAINTS OF PAIN. PATIENT DID COMPLAIN OF NAUSEA FREQUENTLY AND WAS TREATED APPROPRIATELY. MOSTLY ORIENTED BUT FORGETFUL, PATIENT CAN BE IMPULSIVE AND ANXIOUS AT TIMES. PATIENT WAS PUT ON LOW LEVEL OXYGEN IN LIEU OF CPAP DUE TO COMPLAINTS OF NAUSEA. BREATHING STABLE EVIDENCED BY ASSESSMENT AND SPOT OXYGENATION CHECKS. UP MULTIPLE TIMES TO BATHROOM WITH ASSISTANCE INCIDENT FREE. PATIENT IS CONSIDERED A HIGH FALL RISK. NO S/S OF BLEEDING. ECHO SCHEDULED FOR TOMORROW. POSSIBLE DISCHARGE SOON. CONTINUE PLAN OF CARE.
[2019-03-16 04:18] VITALS: BP 160/90
[2019-03-16 04:18] LABS: MCV 125.5 fL (80.0-100.0); OBSERVED RETIC COUNT 15.69 % (0.6-2.6); PLATELET COUNT 92 thou/uL (150-400); RBC 1.45 mil/uL (4.50-6.00); RDW 24.8 % (10.5-14.5); WBC 6.4 thou/uL (4.0-11.0)
[2019-03-16 04:22] LABS: HEMATOCRIT 18.2 % (42.0-52.0); HEMOGLOBIN 5.7 gm/dL (14.0-18.0)
[2019-03-16 04:34] LABS: ALBUMIN 3.3 g/dL (3.4-5.0); CALCIUM 8.6 mg/dL (8.5-10.1); CREATININE 2.4 mg/dL (0.7-1.3); POTASSIUM 5.2 mmol/L (3.5-5.1); TOTAL BILIRUBIN 3.8 mg/dL (<0.1-1.0); TOTAL PROTEIN 6.1 g/dL (6.4-8.2)
[2019-03-16 05:06] LABS: ABSOLUTE NEUTROPHILS 5.7 thou/uL (1.4-8.2); ANISOCYTOSIS 3+; HYPOCHROMASIA 1+; MACROCYTES 3+; MICROCYTES 1+; NUCLEATED RBCS 3 /100WBC; POLYCHROMASIA 2+
[2019-03-16 05:07] LABS: OVALOCYTES 1+; POIKILOCYTOSIS 1+; SCHISTOCYTES 2+
[2019-03-16 07:56] VITALS: BP 146/68
[2019-03-16 09:09] LABS: GLOBULIN TOTAL 2.6 g/dL (2.2-3.9); M-SPIKE Not Observed g/dL (Not Observed)
[2019-03-16 10:10] LABS: ANA INTERPRETATION Negative (Negative)
--- NOTE | 2019-03-16 11:45 | NUR ---
DISCHARGE PLANNING. DISCHARGE TO HOME WITH [facility]. DISCHARGE ANTICIPATED FOR TOMORROW PER ATTENDING. CALL PLACED TO [facility]. SPOKE WITH SARAH. UPDATED SARAH TO PATIENTS ANTICIPATED DC DATE. FOLLOWING TO ASSIST.
--- NOTE | 2019-03-16 11:56 | NUR ---
SW reviewed chart and spoke with nursing and attending physician. Pt to have echo today and plan for discharge home tomorrow with HH services. SW met with pt and son at bedside to provide update. Pt and son are aware and in agreement with discharge plan. space planner to updated Jose . SW is following to assist as needed with discharge planning.
--- NOTE | 2019-03-16 12:17 | NUR ---
Nutrition: Pt assessed due to LOS. Admit: anemia, jaundice, N/V. Hx: liver cirrhosis, CKD stage 4, CAD, PVD, cardiomyopathy, DM. Dementia also indicated in EMR. Pt was asleep in chair, but son present for interview. Reports he is eating extremely well, just trying to work on better BGs. 1800 kcal diabetic, heart healthy diet. BG ranged 191-309 mg/dl on 03/15, down to 172 this AM. Recent EGD/colonoscopy 03/13 which found diverticulosis (not a new dx per son). High fiber recommended. Discussed details w/ son. works hard at home to increase fiber w/ oatmeal, whole grains, fruits/vegetables, etc. 95% meal average per last 3 days and drinking Glucerna at meals. Wt unchanged all year, 196-198# from Apr-Feb. Low nutrition risk, no further needs voiced.
--- NOTE | 2019-03-16 12:24 | NUR ---
If potassium remains persistently elevated, consider adding low K+ diet restriction. Current daily 12/2 labs show potassium value of 5.2 mEq/L (H).
[2019-03-16 15:37] VITALS: BP 122/62
--- NOTE | 2019-03-16 18:51 | NUR ---
pt is A&0X2 ( PERSON AND PLACE), pt is confused at time,pt is high fall risk, pt's hgb 5.7 today,pt's vs and o2sat are normal,
[2019-03-16 20:15] VITALS: BP 143/75
--- NOTE | 2019-03-17 02:43 | NUR ---
Patient began reporting nausea around 1999 yesterday. Zofran was administered with marginal improvement of nausea. Patient reported worsening nausea aroud 2300. Nursing contacted [facility] and obtained orders for a scolpomine patch and IV prochlorperazine. These were administed with moderate improvement of nausea. Patient again reported increasing nausea and a second dose of zofran was administered at 0130. Patient then reported diffuse abdominal pain 8/10 and was administered oxycodone to partial relief. Through NOC patient struggled to get comfortable, moving from bed to chair repeatedly. Nursing will continue to monitor.
[2019-03-17 06:20] VITALS: BP 120/67
[2019-03-17 07:49] VITALS: BP 145/72
--- NOTE | 2019-03-17 09:16 | HC ---
[facility] [place] [address] CONSULTATION Name: DARRICK GONZALEZ Gissel Room #: 362-P ADM IN M.R.#: [id number] Admission: 03/09/19 Attend Phys: Jerrod Bernstein MD Discharge: Date of : 38 Report #: [id number] THIS REPORT FOR: //name// CC: Jerrod Licona DATE OF SERVICE: 03/16/2019 CONSULTING PHYSICIAN: Dr. Bernstein REASON FOR CONSULTATION: Type 2 diabetes mellitus. HISTORY OF PRESENT ILLNESS: This is an 78-year-old male patient whose medical background is significant for multiple medical issues including type 2 diabetes mellitus, coronary artery disease, peripheral vascular disease, cardiomyopathy. The patient presented to [facility]'s Emergency Department with complaints of nausea, vomiting as well as generalized swelling and edema. Also, he was noted by family members to have a yellowish tinge to his skin that seemed to only get worse over the few days preceding admission. Also, the patient suffered issues with nausea and vomiting around the time of admission and on arrival to the ER, he was found to be severely anemic with hemoglobin of 6 as well as with worsening kidney function and was subsequently admitted for further care and monitoring. Later during his hospital stay, the patient again was primarily managed for the issues of acute on chronic anemia with positive warm antibodies and a persistently low hemoglobin of around 6, which required management with high dose steroids. This coincided with an improvement in his bilirubin down from 8.7-4.1. Also, the patient was investigated for the issues of nausea, vomiting and had an EGD earlier during this hospital stay as well as a colonoscopy, which were only notable for diverticulosis and a possible gastroparesis. The patient is known to have atrial fibrillation and sick sinus syndrome, on a pacemaker, which seems to be functioning rather well. An additional issue during his hospital stay was that of worsening kidney function that was consistent with stage 4 chronic kidney disease. I chatted with the patient as well as with his son who seems very involved in his care and well aware of the details of his medical history. The patient has had diabetes mellitus for many years and is currently maintained on a combination of basal bolus therapy in the form of Levemir insulin 24 units at bedtime, as well as a NovoLog insulin at a dose of 14, 14 and 17 units t.i.d. a.c. It is noted by his family members that he maintains excellent control at home with this regimen with blood glucose values often running between 100 and 150 mg/dL. It does not appear that the patient has dealt with much in terms of severe hyperglycemia or hypoglycemia at home. It is worth mentioning though that the patient seems to be dealing with issues of early dementia changes which were concerning enough to his family to where they had to withdraw his control of medicine for fear of duplicating treatment and overdosing. It appears that [address] [address] CONSULTATION Name: DARRICK GONZALEZ Room #: 362-P [facility] IN .R.#: [id number] Admission: 03/09/19 Attend Phys: Jerrod Bernstein MD Discharge: Date of : 38 Report #: [id number] the patient's is primarily responsible for administering insulin. There is not a history of diabetic retinopathy, but the patient does have cataracts, again, the patient has had major issues with coronary artery disease, status post CABG and stent placements as well as peripheral vascular disease and stent placement. The patient has ischemic cardiomyopathy with his most recent ejection fraction standing at 45%. The patient has peripheral neuropathy by his report. Also, the patient has hypothyroidism and is maintained on treatment with levothyroxine 75 mcg daily. REVIEW OF SYSTEMS: CONSTITUTIONAL: Fatigue, tiredness, but not fever or chills or body weight changes. HEENT: Jaundice. Negative for sore throat, ear drainage, sinus pain. PULMONARY: Shortness of breath, cough. No hemoptysis. CARDIAC: Generalized body swelling, lower extremity edema, abdominal distention, but not chest pain. GASTROINTESTINAL: Abdominal discomfort, abdominal distention, nausea, vomiting. NEUROLOGY: Negative for loss of consciousness, seizure activity. PSYCHIATRIC: Negative for delusions, hallucinations, but by his family's report, noted for dementia changes and forgetfulness. HEMATOLOGY: Noted for deep vein jaundice. Otherwise, his review of systems noncontributory unless mentioned in HPI. PAST MEDICAL HISTORY: 1. Type 2 diabetes mellitus. 2. Chronic kidney disease. 3. Peripheral diabetic neuropathy. 4. Congestive heart failure. 5. Coronary artery disease, status post CABG, status post stent placement. 6. Peripheral vascular disease, status post stent placement. 7. COPD. 8. Dementia. 9. Lower extremity edema. 10. Anemia. 11. Hypothyroidism. 12. Iron deficiency. 13. Benign prostatic hypertrophy. 14. Gout. 15. Hyperlipidemia. 16. Osteoarthritis. 17. Morbid obesity. 18. Obstructive sleep apnea. 19. Gastroesophageal reflux disease. 20. History of peptic ulcer disease 1978. [facility] [address] [place] [address] CONSULTATION Name: DARRICK GONZALEZ Room #: 362-P [facility] IN M.R.#: [id number] Admission: 03/09/19 Attend Phys: Jerrod Bernstein MD Discharge: Date of : 38 Report #: [id number] 21. Hiatal hernia. 22. Suspicion of fatty liver/liver cirrhosis. 23. Tricuspid regurgitation. OUTPATIENT MEDICATIONS: 1. Levothyroxine 75 mcg daily. 2. Tylenol. 3. NovoLog insulin 14, 14, 17 units t.i.d. a.c. 4. Levemir 24 units at bedtime. 5. Albuterol. 6. Glucagon as needed. 7. Zofran 4 mg q. 6 hours p.r.n. nausea. 8. Enteric-coated aspirin 81 mg daily. 9. Melatonin at bedtime. 10. Iron 65 mg daily. 11. Remeron 15 mg insomnia. 12. Xarelto 15 mg daily. 13. Flonase. 14. Flomax 0.4 mg daily. 15. Allopurinol 300 mg daily. 16. Rosuvastatin 20 mg daily. 17. Trazodone 50 mg at bedtime. ALLERGIES: DONEPEZIL, PENICILLIN, LORAZEPAM, TRAMADOL. FAMILY HISTORY: Noncontributory. SOCIAL HISTORY: The patient is . Former smoker. Denies the active use of alcohol. PHYSICAL EXAMINATION: GENERAL: Pleasant male patient not in apparent pain or distress. VITAL SIGNS: Blood pressure is 122/62 mmHg, heart rate is 81 beats per minute, respirations 16 per minute, temperature 36.3 degrees. CONSTITUTIONAL: Appears comfortable, lying in bed supine, not in apparent distress. HEENT: Slightly jaundiced sclerae. Intact extraocular motions. NECK: Supple, without JVD, carotid bruits or lymphadenopathy. I do not appreciate thyromegaly. CHEST: Noted for limited air entry bilaterally with scattered rales and rhonchi. HEART: Regular rate and rhythm without murmurs or gallops. ABDOMEN: Obese, distended, but soft, lax. No guarding. Active bowel sounds. EXTREMITIES: Lower extremity exam noted for pitting edema bilaterally. Faint pedal pulses, moderately diminished sensation to light touch. NEUROLOGIC: Awake, alert and oriented to time, place and person. The remainder [facility] [address] [place] [address] CONSULTATION Name: DARRICK GONZALEZ Room #: 362-P ADM IN .R.#: [id number] Admission: 03/09/19 Attend Phys: Jerrod Bernstein MD Discharge: Date of : 38 Report #: [id number] of examination is nonfocal other than for the peripheral sensory deficits. PSYCH: Pleasant, interactive. Normal mood and affect. LABORATORY DATA: Blood glucose values here over the past 48 hours have ranged from 191-309 mg/dL. Over the past few days, these have predominantly stayed over 250 mg/dL. Sodium 142, potassium 5.2, chloride 113, CO2 of 21, anion gap 8, BUN 82, creatinine 2.4, AST 28, lipase 160, total bilirubin 3.8, direct bilirubin 1.3, calcium 8.6, phosphorus 4.6, magnesium 2.2, uric acid 5.7, alkaline phosphatase 120, ALT 30, total protein 6.1, albumin 3.3, EGFR 26. Ammonia 19. Lactic acid 1.1. CPK 690. Troponin 0.06. Total cholesterol of 50, triglycerides 59, HDL 34, LDL 5. BNP 1043. Protein electrophoresis was unremarkable. White blood count 6.4, hemoglobin 5.7, hematocrit 18.2, platelets 92. TSH 10/2017 was 3.078. Hemoglobin A1c from 2016 was 8.7. ASSESSMENT AND PLAN: 1. Type 2 diabetes mellitus. As noted in HPI, the patient seems to have been under excellent control at home on his basal bolus insulin regimen. I do not have a current hemoglobin A1c; however, hemoglobin A1c under the current circumstances of severe anemia would be highly unreliable. The patient's blood glucose values have been predominantly elevated over the past several days in the setting of having to use large doses of glucocorticoids. The patient is presently on prednisone 80 mg daily and is expected to be on glucocorticoids for an extended period of time. That said, we will have to revise the patient's insulin intake to where we can keep up with his insulin needs under these circumstances. That said, I will raise his Humalog supplemental scale coverage to 22 units t.i.d. a.c. while also raising his Lantus insulin to 42 units at bedtime. I will maintain support with Humalog supplemental scale moderate intensity as we keep monitoring his blood glucose values a.c. and at bedtime to help adjust his blood glucose values as needed. I explained to the patient as well as to his family that as we hopefully get to the point where we can taper down his glucocorticoids that his insulin needs would expectedly decrease going forward. 2. Hypothyroidism. The patient has longstanding history of hypothyroidism with a stable levothyroxine dose to 75 mcg daily. I will obtain thyroid function indices to ensure the adequacy of this dose. 3. Hyperlipidemia. The patient is under excellent lipid control as per his most recent lipid panel. He is to continue with his lipid-lowering therapy following the stabilization of his more acute medical issues. I have reviewed the patient's clinical care notes, laboratory data and other pertinent medical information out of his electronic medical chart for over 35 minutes. [facility] [address] [place] [address] CONSULTATION Name: DARRICK GONZALEZ Room #: 362-P ADM IN M.R.#: [id number] Admission: 03/09/19 Attend Phys: Jerrod Bernstein MD Discharge: Date of : 38 Report #: [id number] I appreciate this consultation by Dr. Jerrod Bernstein. <ELECTRONICALLY SIGNED> By: Donya Stephens MD 03/17/19 0916 [id number] [id number] Donya Stephens MD /nt
[2019-03-17 10:04] LABS: MCH 38.8 pg (26.0-34.0); MCHC 30.8 g/dL (28.0-37.0); MCV 126.1 fL (80.0-100.0); RBC 1.58 mil/uL (4.50-6.00); RDW 24.2 % (10.5-14.5); WBC 5.5 thou/uL (4.0-11.0)
[2019-03-17 10:24] LABS: ALBUMIN 3.3 g/dL (3.4-5.0); CALCIUM 8.4 mg/dL (8.5-10.1); CREATININE 2.3 mg/dL (0.7-1.3); POTASSIUM 5.3 mmol/L (3.5-5.1); TOTAL BILIRUBIN 3.4 mg/dL (<0.1-1.0); TOTAL PROTEIN 6.1 g/dL (6.4-8.2)
[2019-03-17 12:22] VITALS: BP 122/57
--- NOTE | 2019-03-17 13:13 | NUR ---
BEGAN CARE AT 0700. PT ASLEEP BUT EASILY AROUSABLE. A&O TO PERSON AND PLACE. REFUSED MORNING LABS, STATED "NO ONE IS STICKING ME WITH ANYTING TODAY." SON CAME TO VISIT AND PERSUADED HIM. HGB HAS IMPROVED TO 6.1. PT HAS BEEN EATING 100% OF MEALS AND WILL CALL TO USE THE RESTROOM. STANDBY ASSIST WITH GAIT BELT AND WILL DRIBBLE URINE WHILE WALKING.
--- NOTE | 2019-03-17 15:17 | NUR ---
SW reviewed chart and spoke with nursing and attending physician. Pt is not medically stable for discharge home today. Plan is for pt to discharge home with services when medically stable. NOA is following to assist as needed with discharge planning.
[2019-03-17 15:34] VITALS: BP 144/76
--- NOTE | 2019-03-17 16:50 | NUR ---
pt is A&OX2 ( person and place), pt is confused at time, pt's hgb has some improved, 6.1 today, but no transfusin at this time, because pt is difficault type and crose blood, pt has sob with activities, pt starts o2 1L/min/nc , pt 's vs and o2sat are stable by this time, RN has reported to TORI KEMP about pt's ABD distention, new order X-RAY KUB, results show nonobstructive bewel gas pattern, received new order from TORI kemp, PT has plan IR Bone marrow bx tomorrow, pt's son has signed consent for pt.
[2019-03-17 20:41] VITALS: BP 128/66
--- NOTE | 2019-03-18 00:19 | NUR ---
Patient reported continued nausea this evening and became increasingly agitated. BUSINESS ANALYST [employer] contacted and haliperidol was ordered and administered. Patient was calmer and reported less nausea after administration. Nursing will continue to monitor.
--- NOTE | 2019-03-18 04:11 | NUR ---
Patient laying in bed upon assuming care for this patient. Patient moaning, yelling out for help, restless. DAVID Cedillo was notified and order obtained for one time dose of Haldol. Patient was provided this medication IV. Patient was able to fall asleep and rest for several minutes then was up yelling, restless, moaning, crying. DAVID Cedillo, notified again and order obtained for another one time dose of Haldol. Patient was able to rest quietly after receiving this medication. Patient up this AM and used the urinal with mod assist x2, continent. O2 1.5L NC continuously. Patient NPO since midnight due to procedure scheduled 03/18/19. Consent obtained from DAVID Marquis for patient to take scheduled AM medication with small drink of water only. Patient alert and oriented x3 with periods of confusion. Patient v-paced at this time. IV to left hand infiltrated, IV to left AC present.
[2019-03-18 04:48] VITALS: BP 147/66
[2019-03-18 07:22] LABS: HEMOGLOBIN 6.1 gm/dL (14.0-18.0)
[2019-03-18 07:24] LABS: HEMATOCRIT 19.9 % (42.0-52.0)
[2019-03-18 11:00] VITALS: BP 134/71
[2019-03-18 12:00] VITALS: BP 151/68
[2019-03-18 13:45] LABS: MCH 39.1 pg (26.0-34.0); MCHC 30.7 g/dL (28.0-37.0); WBC 5.1 thou/uL (4.0-11.0)
[2019-03-18 13:46] LABS: HEMATOCRIT 21.2 % (42.0-52.0); HEMOGLOBIN 6.5 gm/dL (14.0-18.0); MCV 127.4 fL (80.0-100.0); RBC 1.67 mil/uL (4.50-6.00); RDW 23.4 % (10.5-14.5)
[2019-03-18 13:48] LABS: PLATELET COUNT 69 thou/uL (150-400)
[2019-03-18 14:04] LABS: ABSOLUTE NEUTROPHILS 4.7 thou/uL (1.4-8.2); ANISOCYTOSIS 3+; METAMYELOCYTES 1 %; NUCLEATED RBCS 3 /100WBC
[2019-03-18 14:05] LABS: MACROCYTES 2+; OVALOCYTES 1+; TEARDROPS 1+
--- NOTE | 2019-03-18 14:06 | PATH ---
[facility] [address] [address] PATHOLOGY RPT PROCEDURE Name: DARRICK GONZALEZ Room #: 362-P ADM IN M.R.#: [id number] Admission: 03/09/19 Date of : 38 Discharge: Report #: [id number] Path Case #: [id number] [facility] Accession Number: [id number] . 01 Material submitted: . body - PERIPHERAL BLOOD . 02 Diagnosis: Special studies report received from [facility], [address] [place] [address], [address], [place], [address], on case [id number], labeled with their number [id number], dated 03/17/2019. . Flow Cytometry: Hematologic Neoplasia Assessment . Clinical History . . Indication for Study Evaluation for hematolymphoid neoplasia . Specimen Peripheral Blood . Viability 81% (7AAD exclusion) . Interpretation Peripheral Blood: - Neutrophil left shift and 0.1% circulating blasts. See comments. - No evidence for a B-cell or T-cell lymphoproliferative disorder. . Comments The immunophenotypic findings may represent a reactive process (infection, inflammation, medication effect, etc.), or may be associated with a myeloid neoplasm (MDS, MPN, etc.). Myeloproliferative and myelodysplastic disorders cannot be categorically confirmed or excluded by flow cytometric analysis. Correlation with available clinical, laboratory, and morphologic data is recommended. . Populations Analyzed Myeloid Blasts: 0.1% No significant immunophenotypic abnormalities. Lymphocytes: 6% B-cells: 0.6%, polytypic/polyclonal cIg light chain pattern T-cells: no significant abnormalities of the markers tested CD4+ T-cells: 1.9% (including 0.2% CD57+ cells) CD8+ T-cells: 2.5% (including 1.6% CD57+ cells) CD4:CD8: 0.7 [facility] [address] [place] [address] PATHOLOGY RPT PROCEDURE Name: GONZALEZDARRICK Gissel Room #: 362-P ADM IN M.R.#: [id number] Admission: 03/09/19 Date of : 38 Discharge: Report #: [id number] Path Case #: [id number] NK cells: 0.8% Neutrophils: 85.3% Immunophenotypic features consistent with left-shift (decreased CD16, CD10, and CD13); decreased side scatter Monocytes: 7.1% No significant abnormalities of the markers tested Eosinophils: 1% No relative increase Basophils: 0.1% No relative increase CD45 Negative 0.4% No significant reactivity with the markers tested Events/Debris: (may represent unlysed red blood cells, erythroid precursors, platelets, debris, etc.) . . Morphologic Evaluation A slide was reviewed for software quality specialist purposes only. . Specimen Description Total Cell Yield: 1.66 X 10 and 6 . Pertinent Prior Test Results Received Date Test Type Specimen Type Result 07/01/2014 Virtual Studies - Unstained Tissue Result Number: [id number] Level 1 . Reagent(s) Used CD2, CD3, CD4, CD5, CD7, CD8, CD10, CD11b, CD13, CD14, CD16, CD19, CD20, CD33, CD34, CD38, CD45, CD56, CD57, CD64, CD117, HLA-DR, kappa, lambda, CytoKappa, CytoLambda . at [email or web address]. Laci Norman MD Pathologist . . . Intended Use Flow cytometry is optimally used to immunophenotypically characterize abnormal populations when they are detected. Negative flow cytometry results do not exclude lymphoma or neoplasia. Possible false negative flow cytometry results may occur in, but are not limited to, the following: neoplastic cells in Hodgkin lymphoma are not typically adequately represented by routine clinical flow cytometry; neoplastic cells may be lost or inadequately represented due to degeneration, sample processing, sampling artifact, or patchy involvement; plasma cells are typically underrepresented by flow cytometry; immature cells/blasts may be underrepresented due to hemodilution; myeloproliferative disorders and low grade myelodysplasia may not have immunophenotypic abnormalities or increased blasts. Correlation with all available clinical, laboratory, and [address] [address] PATHOLOGY RPT PROCEDURE Name: DARRICK GONZALEZ Room #: 362-P ADM IN M.R.#: [id number] Admission: 03/09/19 Date of : 38 Discharge: Report #: [id number] Path Case #: [id number] morphologic data is always necessary to assess for the possibility of false negative flow cytometry results and to establish a diagnosis. Each marker in this analysis was used to assess for potential antigenic abnormalities or to evaluate detected abnormalities. . Disclaimer(s) This test was performed at [email or web address]. at [address], [address] - Wire Winder: Mark Crain MD. [facility] is a business unit of [email or web address]., a wholly-owned subsidiary of [employer]. . Any image or images that accompany this report are aircraft sales representative images only and should not be used to render a diagnosis. . This test was developed and its performance characteristics determined by [facility]. It has not been cleared or approved by the Food and Drug Administration (FDA). The FDA has determined that such clearance or approval is not necessary. . For inquiries, the physician may contact Lab: [phone] . A complete copy of the report is on file. . Professional services performed by [facility]. at [address], [place] [address]. Technical services performed by [facility]. at [address], [place] [address]. . (CLW:[facility] 03/17/2019) . . [facility] 03/17/2019 1624 [facility] . 02 Electronically signed: . Tiffanie Will MD, Pathologist NPI- [id number] . 02 Pathologist provided ICD-10: D64.9 . 02 CPT . 787251 Specimen Comment: A courtesy copy of this report has been sent to [phone] Specimen Comment: 0080, [facility] [address] [place] [address] PATHOLOGY RPT PROCEDURE Name: DARRICK GONZALEZ Room #: 362-P ADM IN M.R.#: [id number] Admission: 03/09/19 Date of : 38 Discharge: Report #: [id number] Path Case #: [id number] Specimen Comment: Report sent to ,DR WATSON / DR BRITO Performed at: 01 [facility] [address] [id number] MD Vladislav Farias MD Phone: [phone] Performed at: 02 [facility] [address] [id number] MD Natalio Holland MD Phone: [phone]
[2019-03-18 14:07] LABS: SCHISTOCYTES FEW
[2019-03-18 14:08] LABS: POLYCHROMASIA 1+
[2019-03-18 15:35] VITALS: BP 135/64
[2019-03-18 15:54] LABS: ALBUMIN 3.5 g/dL (3.4-5.0); CALCIUM 8.9 mg/dL (8.5-10.1); CREATININE 2.6 mg/dL (0.7-1.3); PHOSPHORUS 4.8 mg/dL (2.5-4.9); POTASSIUM 5.4 mmol/L (3.5-5.1); TOTAL BILIRUBIN 3.7 mg/dL (<0.1-1.0); TOTAL PROTEIN 6.1 g/dL (6.4-8.2)
--- NOTE | 2019-03-18 16:04 | NUR ---
NOA reviewed chart and spoke with nursing and attending physician. Pt to have a bone marrox bx today. SW updated [facility] liaison. Plan is for pt to discharge home with HH when medically stable. NOA is following to assist as needed with discharge planning.
--- NOTE | 2019-03-18 20:17 | NUR ---
pt is A&OX2 ( person and place), pt is confused at time, pt is high fall risk, pt is on o2 1L/MIN/NC, PT's vs and o2sat are stable, pt refused lab at morning, RN has called pt's family to help for LAB draw blood, pt has done orocedure: IR BIOPSY BONE MARROW today, pt was tolerated , pt's biopsy site ( posterior supperior iliac spine ) dressing has small blood drinage , RN has put new pressure dressing , after then , no bleeding at biopsy site, pt's fammily stay at pt's bedside.
[2019-03-18 20:36] VITALS: BP 116/70
--- NOTE | 2019-03-18 22:45 | NUR ---
PATIENT IS VERY ANXIOUS AND HAS YELLED OUT MULTIPLE TIMES THIS SHIFT. HE IS UNCOMFORTABLE AND COMPLAINS OF BEING "SICK TO MY STOMACH."
--- NOTE | 2019-03-19 03:32 | NUR ---
CARE ASSUMMED AT 1845. VITAL SIGNS STABLE WITH PATIENT HAVING NO COMPLAINTS OF PAIN. PATIENT DID COMPLAIN OF NAUSEA FREQUENTLY WHICH WAS TREATED SOMEWHAT EFFECTIVELY WITH MEDICATIONS AND NON PHARMACOLOGICAL INTERVENTION. MOSTLY ORIENTED, PATIENT DOES SHOW SIGNS OF CONFUSION AND BEING IMPULSIVE. BREATHING STABLE EVIDENCED BY ASSESSMENT AND CONTINUOUS SATURATION MONITOR. UP ULTIPLE TIMES TO CHAIR AND BACK TO BED INCIDENT FREE, PATIENT IS CONSIDERED A HIGH FALL RISK. CONTINUE PLAN OF CARE.
[2019-03-19 04:55] VITALS: BP 163/72
[2019-03-19 06:39] LABS: ALBUMIN 3.5 g/dL (3.4-5.0); CALCIUM 8.7 mg/dL (8.5-10.1); CREATININE 2.4 mg/dL (0.7-1.3); PHOSPHORUS 5.8 mg/dL (2.5-4.9)
[2019-03-19 06:44] LABS: POTASSIUM 6.2 mmol/L (3.5-5.1)
[2019-03-19 08:07] VITALS: BP 146/82
[2019-03-19 08:24] LABS: ALBUMIN 3.7 g/dL (3.4-5.0); CALCIUM 8.8 mg/dL (8.5-10.1); CREATININE 2.7 mg/dL (0.7-1.3); PHOSPHORUS 5.9 mg/dL (2.5-4.9); POTASSIUM 5.9 mmol/L (3.5-5.1)
[2019-03-19 08:32] LABS: HEMATOCRIT 22.6 % (42.0-52.0); HEMOGLOBIN 7.1 gm/dL (14.0-18.0); MCH 39.7 pg (26.0-34.0); MCHC 31.2 g/dL (28.0-37.0); MCV 127.1 fL (80.0-100.0); RBC 1.78 mil/uL (4.50-6.00); RDW 22.7 % (10.5-14.5); WBC 6.5 thou/uL (4.0-11.0)
[2019-03-19 09:15] LABS: NUCLEATED RBCS 3 /100WBC
[2019-03-19 09:16] LABS: ANISOCYTOSIS 2+; LARGE PLATELETS FEW; PLATELET COUNT 75 thou/uL (150-400); PLATELET ESTIMATE SLIGHTLY DECREASED
[2019-03-19 09:17] LABS: POLYCHROMASIA 1+; SCHISTOCYTES 1+; TEARDROPS 1+
[2019-03-19 15:36] VITALS: BP 135/55
--- NOTE | 2019-03-19 16:14 | NUR ---
ON-GOING ASSESSMENT: CM REVIEWED CHART AND SPOKE WITH PATIENTS SON WELL PATIENTS . CM DISCUSSED PT/OT HAS BEEN ASKED TO SEE PATIENT AGAIN TO SEE IF HE MAY NEED EXTRA THERAPY BEFORE RETURNING HOME. PT MAY QUALIFY FOR POST ACUTE CARE STAY. PTS SON AND FEEL HE WOULD BENEFIT FROM MORE THERAPY PRIOR TO GOING HOME. SON REPORTS SOMEONE DISCUSSED [facility] WITH HIM AND THEY WANT TO SEE IF PATIENT QUALIFIES. CM SPOKE WITH DR. SEVERINO WHO IS OK WITH CONSULTING [facility] TO SEE IF THEY CAN ACCEPT PATIENT. CM NOTIFIED [facility]ON AND AWAITING INPUT. CM DISCUSSED IF [facility] CANNOT ACCEPT PATIENT THEN SNF CAN BE CONSIDERED. HE STATES THEY REALLY PREFER [facility] AND WANT TO SEE WHAT THEY SAY FIRST. CM WILL CONITUE TO FOLLOW TO ASSIST NEEDED.
[2019-03-19 19:26] VITALS: BP 136/100
--- NOTE | 2019-03-20 00:21 | NUR ---
PT SITTING UP IN LOUNGE CHAIR, O2 PER NC. CHAIR ALARM ON. PT CHEERFUL TALKATIVE. SAYING THANK YOU TO STAFF FOR ASSISTANCE. PT DECLINED REGLAN, PT STATED HE DOES NOT LIKE TAKING MEDS ONCE HE IS IN BED OR AFTER HE FELL ASLEEP. PT DOES REPORT NAUSEA AFTER AMBULATION OR GETTING FROM BED TO CHAIR/CHAIR TO BED. SOA WITH AMBULATION. JAUNDICE REMAINS, DISTENDED ABD, BLE EDEMA +2. AT THIS TIME PT HAS NOT NAME CALLED OR CURSED AT STAFF. PT REQUESTED HS SNACK AND PROVIDED.
--- NOTE | 2019-03-20 02:44 | NUR ---
PT UP TO CHAIR X 1 IN THE MIDDLE OF THE NIGHT FOR APPROX 1.5 HOURS THEN RETURNED TO BED.
[2019-03-20 04:57] VITALS: BP 146/65
[2019-03-20 07:41] VITALS: BP 169/79
[2019-03-20 09:09] LABS: HEMOGLOBIN 6.8 gm/dL (14.0-18.0); MCV 126.7 fL (80.0-100.0)
[2019-03-20 09:12] LABS: HEMATOCRIT 21.9 % (42.0-52.0); MCH 39.4 pg (26.0-34.0); MCHC 31.1 g/dL (28.0-37.0); PLATELET COUNT 60 thou/uL (150-400); RBC 1.73 mil/uL (4.50-6.00); RDW 21.9 % (10.5-14.5); WBC 5.3 thou/uL (4.0-11.0)
[2019-03-20 11:07] LABS: ALBUMIN 3.4 g/dL (3.4-5.0); CALCIUM 9.2 mg/dL (8.5-10.1); CREATININE 2.8 mg/dL (0.7-1.3); MAGNESIUM 2.9 mg/dL (1.8-2.4); POTASSIUM 5.9 mmol/L (3.5-5.1); TOTAL BILIRUBIN 2.6 mg/dL (<0.1-1.0); TOTAL PROTEIN 6.3 g/dL (6.4-8.2)
[2019-03-20] MEDS ORDERED: PANTOPRAZOLE SO40 M1 PO (12:51)
[2019-03-20] MEDS ORDERED: HUMALOG100 UNIT/1 SUBQ ×2 (12:51)
[2019-03-20] MEDS ORDERED: OXYCODONE HCL 55 MG PO (12:51)
[2019-03-20] MEDS ORDERED: LANTUS SUBQ (12:51)
[2019-03-20] MEDS ORDERED: REGLAN 5 MG TAB5 MG PO (12:51)
[2019-03-20] MEDS ORDERED: SEROQUEL 25 MG25 M1 PO (12:51)
[2019-03-20] MEDS ORDERED: MELATONIN5 M1 PO (12:51)
[2019-03-20] MEDS ORDERED: PREDNISONE 20 M20 M1 PO (12:51)
[2019-03-20 13:12] LABS: ABSOLUTE NEUTROPHILS 4.9 thou/uL (1.4-8.2)
[2019-03-20 13:13] LABS: ANISOCYTOSIS 2+; MACROCYTES 1+
[2019-03-20 13:14] LABS: POLYCHROMASIA SLIGHT
[2019-03-20 13:17] LABS: TEARDROPS 1+
[2019-03-20 13:18] LABS: BURR CELLS OCCASIONAL
[2019-03-20 13:20] LABS: SCHISTOCYTES FEW
--- NOTE | 2019-03-20 14:24 | NUR ---
PT SENT TO ROOM 514 VIA WHEELCHAIR. TELE DC'D PIV IN PLACE. PT SON UPDATED. REPORT WAS GIVEN TO SNEHA.
--- NOTE | 2019-03-22 08:35 | HC ---
[facility] [place] [address] CONSULTATION Name: DARRICK GONZALEZ Room #: 362-P [facility] IN M.R.#: [id number] Admission: 03/09/19 Attend Phys: Jerrod Bernstein MD Discharge: 03/20/19 Date of : 36 Report #: [id number] THIS REPORT FOR: //name// CC: Jerrod Licona REASON FOR CONSULTATION: CKD. REASON FOR PRESENTATION: Nausea and abnormal discoloration of the skin. HISTORY OF PRESENT ILLNESS: This is an 78-year-old with past medical history of coronary artery disease, status post CABG, peripheral vascular disease with multiple peripheral stents, cardiomyopathy with an ejection fraction of around 45%, sick sinus syndrome, status post permanent pacemaker. He is also known to have chronic kidney disease and was followed by Dr. Villanueva in our clinic. Baseline creatinine is around 2.20. He was last seen in our clinic a couple of weeks ago, and at that time, his creatinine was around his baseline of around 2.2. He also had a hemoglobin value of around 10.0. Over the last few days, the patient has been having some nausea and not feeling well. He also noticed an increase in the yellowish discolorations of his skin. This was associated with some vomiting and pinkish to reddish vomitus. He describes diffuse abdominal pain. He has lost his appetite. He denies any hematochezia or melena. He did, however, have diarrhea and was somewhat confused in the last couple of days. The patient presented for further evaluation and was found to be severely anemic with a high bilirubin level. His creatinine is around his baseline. PAST MEDICAL HISTORY: 1. Coronary artery disease. 2. Status post CABG. 3. Sick sinus syndrome. 4. Peripheral vascular disease. 5. Hypertension. 6. Diabetes mellitus. 7. Hyperlipidemia. 8. AFib. 9. Hypothyroidism. 10. Ischemic cardiomyopathy. MEDICATIONS: 1. Torsemide. 2. Levothyroxine. 3. Insulin. 4. Aspirin. 5. Mirtazapine. 6. Xarelto. 7. Flomax. [facility] [address] [place] [address] CONSULTATION Name: DARRICK GONZAELZ Room #: 362-P [facility].#: [id number] Admission: 03/09/19 Attend Phys: Jerrod Bernstein MD Discharge: 03/20/19 Date of : 36 Report #: [id number] 8. Rosuvastatin. 9. Trazodone. ALLERGIES: PENICILLIN AND LORAZEPAM. SOCIAL HISTORY: He is an ex-smoker. No drug or alcohol abuse. REVIEW OF SYSTEMS: GENERAL: Significant for weakness. CARDIOVASCULAR: No chest pain or palpitation. PULMONARY: No cough or hemoptysis. GASTROINTESTINAL: As per the history of present illness. GENITOURINARY: No frequency, no urgency. MUSCULOSKELETAL: Occasional back pain. NEUROLOGICAL: Some confusion episodes and weakness. HEMATOLOGICAL: Significant yellowish discoloration of the skin. PHYSICAL EXAMINATION: GENERAL: He is alert, oriented, in no apparent distress. VITAL SIGNS: Blood pressure is 137/60, temperature is 36.7, pulse rate is 75, respiratory rate is 16. HEAD AND NECK: No jugular venous distention. Deeply jaundiced. CARDIOVASCULAR: Regular, with no rub detected. ABDOMEN: Soft, nontender. LOWER EXTREMITIES: Chronic venous stasis changes with +2 edema. LABORATORY DATA: Laboratory values reviewed. Sodium is 137, potassium is 4.5, BUN is 83, creatinine is 2.9. Hemoglobin is 5.5. Hematocrit is 16.9. Abdominal ultrasound with no acute process. There is hepatosplenomegaly though. IMPRESSION AND PLAN: 1. Severe anemia with unknown source. 2. Chronic kidney disease. 3. Jaundice. 4. Atrial fibrillation. 5. Sick sinus syndrome. 6. Diabetes mellitus. 7. Hypertension. 8. The patient is currently at his baseline when it comes to his creatinine. There had been a significant drop in his hemoglobin and this will need to be worked up. Previous GI workup has been done with no significant source. I will consult Hematology to rule out hemolysis. As for now, keep off diuretics. 9. We will continue to. [address] [address] CONSULTATION Name: GONZALEZDARRICK Gissel Room #: 362-P [facility] IN M.R.#: [id number] Admission: 03/09/19 Attend Phys: Jerrod Bernstein MD Discharge: 03/20/19 Date of : 38 Report #: [id number] DICTATION ENDS HERE <ELECTRONICALLY SIGNED> By: Alfred Luis MD 03/22/19 0835 [id number] [id number] Alfred Luis MD /nt
--- NOTE | 2019-03-30 17:06 | PATH ---
[facility] [address] [place] [address] PATHOLOGY RPT PROCEDURE Name: DARRICK IQBAL Room #: 362-P DIS IN M.R.#: [id number] Admission: 03/09/19 Date of : 36 Discharge: 03/20/19 Report #: [id number] Path Case #: [id number] [facility] Accession Number: [id number] . 01 Material submitted: . PART A: bone - BONE MARROW BIOPSY PART B: bone - BONE MARROW CLOT PART C: bone - BONE MARROW ASPIRATE SLIDES PART D: bone - PERIPHERAL BLOOD SMEARS PART E: bone - BONE MARROW FLOW . 01 Clinical history: . Anemia 78-year-old man with severe macrocytic anemia and thrombocytopenia. . 02 Diagnosis: Bone marrow aspirate, biopsy, cell clot, and peripheral blood: - Peripheral blood with severe macrocytic anemia showing anisocytosis and moderate thrombocytopenia. - Hypercellular bone marrow with trilineage hematopoiesis, erythroid hyperplasia, mild to focally moderate dyserythropoiesis and no evidence of lymphoma, acute leukemia, or plasma cell dyscrasia. (See comment). (CLW:gilberto; 03/24/2019) . . . Special studies report received from [facility], [address] [place] [address], [address], [place], [address], on case [id number], labeled with their number [id number], dated 03/20/2019. . Flow Cytometry: Hematologic Neoplasia Assessment . Clinical History . . Indication for Study Evaluation for hematolymphoid neoplasia . Specimen Bone Marrow . Viability 74% (7AAD exclusion) . Interpretation Bone Marrow: No significant immunophenotypic abnormalities detected . [address] [address] PATHOLOGY RPT PROCEDURE Name: DARRICK IQBAL Room #: 362-P [facility] ..#: [id number] Admission: 03/09/19 Date of : 36 Discharge: 03/20/19 Report #: [id number] Path Case #: [id number] Comments Myeloproliferative and myelodysplastic disorders cannot be categorically excluded by flow cytometric analysis. Correlation with available clinical, laboratory, and morphologic data is recommended. . The results should be considered in the context of decreased specimen integrity. . Populations Analyzed Myeloid Blasts: 0.2% No significant immunophenotypic abnormalities Lymphocytes: 4% B-cells: 0.4%, polytypic/polyclonal sIg light chain pattern T-cells: no significant abnormalities of the markers tested CD4+ T-cells: 2.1% (including 0.1% CD57+ cells) CD8+ T-cells: 1.3% (including 0.5% CD57+ cells) CD4:CD8: 1.6 NK cells: 0.3% Neutrophilic Cells: 91% No significant abnormalities of the markers tested Monocytic Cells: 3% No significant abnormalities of the markers tested Eosinophils: 1% No relative increase Basophils: 0.0% No relative increase Plasma Cells: 0.1% Few detected; no overt abnormalities of the surface markers tested (plasma cells are typically underrepresented by flow cytometry; cytoplasmic light chains were not assessed) Hematogones: 0.0% Normal B-cell precursors CD45 Negative 0.7% No significant reactivity with the markers Events/Debris: tested (may represent unlysed red blood cells, erythroid precursors, platelets, debris, etc.) (erythroid precursors may be underrepresented due to sample lysis/processing) . . Morphologic Evaluation A slide was reviewed for manager quality improvement purposes only. . Specimen Description Cell Yield: 13.60x10 and 6 Viability is 74%. Flow cytometric data derived from samples with <80% viability needs to be interpreted within the context of all clinical, laboratory, and morphologic data available. . Pertinent Prior Test Results Received Date Test Type Specimen Type Result 03/16/2019 Flow Cytometry Peripheral Blood Result Number: [address] [id number] PATHOLOGY RPT PROCEDURE Name: DARRICK IQBAL Room #: 362-P [facility] IN M.R.#: [id number] Admission: 03/09/19 Date of : 36 Discharge: 03/20/19 Report #: [id number] Path Case #: [id number] Peripheral Blood: - Neutrophil left shift and approximately 0.1% circulating blasts. See comments. - No evidence for a B-cell or T-cell lymphoproliferative disorder. 07/01/2014 Virtual Studies - Unstained Tissue Result Number: Level 1 [id number] . Reagent(s) Used CD2, CD3, CD4, CD5, CD7, CD8, CD10, CD11b, CD13, CD14, CD16, CD19, CD20, CD33, CD34, CD38, CD45, CD56, CD57, CD64, CD117, HLA-DR, kappa, lambda . Electronically Signed by Laci Norman MD at 10:26AM [facility] on 03/20/2019 at [facility]. Laci Norman MD Pathologist . . Intended Use Flow cytometry is optimally used to immunophenotypically characterize abnormal populations when they are detected. Negative flow cytometry results do not exclude lymphoma or neoplasia. Possible false negative flow cytometry results may occur in, but are not limited to, the following: neoplastic cells in Hodgkin lymphoma are not typically adequately represented by routine clinical flow cytometry; neoplastic cells may be lost or inadequately represented due to degeneration, sample processing, sampling artifact, or patchy involvement; plasma cells are typically underrepresented by flow cytometry; immature cells/blasts may be underrepresented due to hemodilution; myeloproliferative disorders and low grade myelodysplasia may not have immunophenotypic abnormalities or increased blasts. Correlation with all available clinical, laboratory, and morphologic data is always necessary to assess for the possibility of false negative flow cytometry results and to establish a diagnosis. Each marker in this analysis was used to assess for potential antigenic abnormalities or to evaluate detected abnormalities. . Disclaimer(s) This test was performed at [facility]. at [address] [place] [address], [id number] - Scouring Train Operator Chief: Mark Crain MD. [facility] is a business unit of [employer] a wholly-owned subsidiary of [facility] [address] [place] [address] PATHOLOGY RPT PROCEDURE Name: DARRICK IQBAL Room #: 362-P DIS IN M.R.#: [id number] Admission: 03/09/19 Date of : 36 Discharge: 03/20/19 Report #: [id number] Path Case #: [id number] [employer]. . Any image or images that accompany this report are labor service representative images only and should not be used to render a diagnosis. . This test was developed and its performance characteristics determined by [facility]. It has not been cleared or approved by the Food and Drug Administration (FDA). The FDA has determined that such clearance or approval is not necessary. . For inquiries, the physician may contact Lab: [phone] . A complete copy of the report is on file. . Professional services performed by [employer]. at [address], [place] [address]. Technical services performed by [employer] at [address], [place] [address]. . (CLW:hailey 03/20/2019) . . [place] 03/24/[address] [place] [address] . 02 Comment: Overall the bone marrow is hypercellular for the patient's age with trilineage hematopoiesis, erythroid hyperplasia, mild to focally moderate dyserythropoiesis, and no evidence of lymphoma, acute leukemia or plasma cell dyscrasia. While the findings could possibly represent a low-grade myelodysplastic syndrome, the dyspoiesis does not meet the morphologic criteria for myelodysplasia. Correlation with clinical history, additional laboratory data and cytogenetic/FISH studies is required. The case is discussed with Dr. Rebeca Reed on 03/24/2019 at approximately 10:00 AM. (CLW:pit; 03/24/2019) . 02 Addendum: . FISH analysis identifies a 20q deletion. While an isolated 20q deletion is the absence of morphologic criteria is insufficient for the diagnosis of MDS, there is mild to moderate dyserythropoiesis. Due to the mild to moderate dyserythropoiesis, a presumptive diagnosis of myelodysplasia should be considered. Again, correlation with clinical history and additional laboratory data is required. The case is discussed with Dr. Rebeca Reed on 03-26-19 at approximately 12:15 PM. (CLW; 03/26/2019) . . [address] [address] PATHOLOGY RPT PROCEDURE Name: DARRICK IQBAL Room #: 362-P [facility] .R.#: [id number] Admission: 03/09/19 Date of : 36 Discharge: 03/20/19 Report #: [id number] Path Case #: [id number] Special studies report received from [facility], [address] [place] [address], [address], [place], [address], on case [id number], labeled with their number [id number], dated 03/26/2019. . Fluorescence in situ Hybridization (FISH) Report [employer] Analysis . 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 Specimen Type: Bone Marrow . Indication for Study: Evaluate for MDS. . INTERPRETATION: Fluorescence in situ hybridization (FISH) analysis was performed on this patient's specimen using DNA probes for MDS panel. Two hundred interphase nuclei were examined for each probe and the signal patterns revealed the following: . 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 . The signal pattern obtained with the remaining probes did not differ significantly from the normal controls. . Deletion of the long arm of chromosome 20 is associated with myeloid disorders in general. In myelodysplastic syndromes (MDS), isolated del(20q) is associated with a good prognosis. However, del(20q) as a sole abnormality is not definitive evidence of MDS in the absence of morphological criteria. In myeloproliferative neoplasms (MPN), deletion of 20q is one of the most common findings in primary myelofibrosis. . Genetic changes other than those assayed in this study cannot be ruled out on the basis of this testing. Correlation with cytogenetic, clinical and hematopathological findings is suggested for a complete interpretation of the results. Follow-up FISH analysis may be considered as a means to monitor the clinical course of the disease. . See Flow Cytometry report [id number] for further information. See Cytogenetic report [id number] for further information. . The following [employer] FISH analysis was performed on this patient's specimen: Probe Detection Parameters Result ISCN FGF10/CSF1R, Detects a deletion/monosomy of Not Detected nuc sheree RPS14 chromosome 5 (FGF10, (5p12/5q33) CSF1R, [facility] [address] [place] [address] PATHOLOGY RPT PROCEDURE Name: DARRICK IQBAL Room #: 362-P DIS IN M.R.#: [id number] Admission: 03/09/19 Date of : 36 Discharge: 03/20/19 Report #: [id number] Path Case #: [id number] RPS14)x2 (200) D7Z1/MDFIC Detects a deletion/monosomy of Not Detected nuc sheree (7cen/7q31) chromosome 7 (D7Z1,MDFIC) x2(200) NINL/PTPRT Detects a deletion of 20q Detected nuc sheree (20p11/20q12) (NINLx2, PTPRTx1) (44/200) D8Z1/MYC Detects a trisomy 8 Not Detected nuc sheree (8cen/8q24) (D8Z1,MYC)x2 (200) . . at [employer]. Leonidas Alonso, Ph.D., [facility] Director of Cytogenetics and Molecular Oncology . Methodology: The patient specimen is processed onto a glass slide. Fluorescent DNA probe(s) is(are) applied to the cells on the slide under conditions of denaturation followed by hybridization. Stringency washes are applied and the slide is subsequently counterstained. A minimum of 100 interphase nuclei are analyzed unless otherwise indicated above. Intended Use: This assay is considered qualitative and is not intended to be used as a measure of quantitative comparison. . Disclaimer This Test was performed by [employer] at [address] [place] [address], [address]. [facility] is a business unit of [employer] a wholly-owned subsidiary of [employer]. . . Any image(s) that accompany this report is/are a labor service representative image(s) only and should not be used to render a diagnosis. . This test was developed and its performance determined by [employer]. It has not been cleared or approved by the U.S. Food and Drug Administration. This test is used for clinical purposes. . A complete copy of the report is on file. . Professional services performed by [facility], [address] [place], [place] [address] [place] [address] PATHOLOGY RPT PROCEDURE Name: DARRICK IQBAL Room #: 362-P [facility] M.R.#: [id number] Admission: 03/09/19 Date of : 36 Discharge: 03/20/19 Report #: [id number] Path Case #: [id number] [address], [address]. Technical services performed by [facility], [address] [place] [address], [place], [address]. . (CLW:hailey 03/26/2019) . [facility]/03/26/2019 Addendum Electronically Signed by Tfifanie Will MD, Pathologist Addendum #2: Special studies report received from [facility], [address] [place] [address], [place], [address], on case [id number], labeled with their number [id number], dated 03/30/2019. . Cytogenetic Analysis Report . 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 Specimen Type: Bone Marrow . Indication for Study: Evaluate for hematolymphoid neoplasia. . 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 No other clonal abnormalities were observed. . Deletion of the long arm of chromosome 20 (20q) is associated with myeloid disorders in general. In myelodysplastic syndromes (MDS) isolated del(20q) is associated with a good prognosis. However, del(20q) as a sole abnormality is not definitive evidence of MDS in the absence of morphological criteria. In myeloproliferative neoplasms (MPN) deletion of 20q is one of the most common findings in primary myelofibrosis (PM). . These results should be interpreted in the context of clinical and histopathologic findings. . See Flow Cytometry report [id number] for further information. See FISH report [id number] for further information. . Number of Metaphases Counted: 20 Banding: G-banding Number of Metaphase Cells Analyzed: 20 Band Level: 375 Number of Metaphase Cells Karyotyped: 4 Cultures Established: 24/48 hour unstimulated . . at [employer]. Bridgette Downey, PhD, [place] [address] PATHOLOGY RPT PROCEDURE Name: DARRICK IQBAL Room #: 362-P DIS IN [facility].#: [id number] Admission: 03/09/19 Date of : 36 Discharge: 03/20/19 Report #: [id number] Path Case #: [id number] Director of Clinical Cytogenetics . Disclaimer This Test was performed by [employer]. at [facility], [address]. [facility] is a business unit of [employer] a wholly-owned subsidiary of [employer]. . . Any image(s) that accompany this report is/are a labor service representative image(s) only and should not be used to render a diagnosis. . Based on the resolution of this study, standard cytogenetic methodology does not routinely detect subtle or sub-microscopic rearrangements or low level mosaicism. . A complete copy of the report is on file. . Professional services performed by [employer]. at [address], [place] [address]. Technical services performed by [facility]. at [address], [place] [address]. . (CLW:am 03/30/2019) . . AZJ/03/30/2019 Addendum Electronically Signed by Tiffanie Will MD, Pathologist . 02 Electronically signed: . Tiffanie Will MD, Pathologist NPI- [id number] . 01 Gross description: . A. Received in formalin labeled "Darrick Iqbal, BM biopsy," is a single needle core of mota bone measuring 0.6 cm in length and 0.2 cm in diameter. The specimen is submitted entirely in cassette A1, following decalcification. . B. Received in formalin labeled "Darrick Iqbal, BM aspirate (clot)," is an aggregate of dark mota blood clot measuring 2.6 x 2.3 x 0.3 cm. The specimen is filtered and entirely submitted in cassette B1. (TSD; 03/18/2019) TOB/TOB 03/24/2019 1224 Local . 02 Microscopic: . CBC Data (03/18/2019): WBC 5,100 /uL, RBC 1.67, hemoglobin 6.5 g/dL, [facility] [address] [place] [address] PATHOLOGY RPT PROCEDURE Name: DARRICK IQBAL Room #: 362-P DIS IN M.R.#: [id number] Admission: 03/09/19 Date of : 36 Discharge: 03/20/19 Report #: [id number] Path Case #: [id number] hematocrit 21.2%, MCV 127.4 fL, MCH 39.1 pg, MCHC 30.7 g/dL, RDW 23.4%, and platelet count 69,000 /uL. White blood cell differential: segs 89%, bans 3%, lymphs 6%, monos 1%, metas 1% and 3 NRBCs/100 WBCs. . Peripheral Blood Smear: Cytomorphological examination of the Sweet's stained peripheral blood smear confirms the provided data. Red blood cells show severe macrocytic anemia with anisopoikilocytosis. Scattered dacrocytes (pointed RBCs, teardrop cells) are noted. While a rare acanthocyte is present, no significant schistocytes are seen. White blood cells are predominantly segmented neutrophils and are without significant dyspoiesis. There is a mild left shift with rare metamyelocytes noted on scanning. No blasts or Dinora rods are seen. Lymphocytes are predominantly small, round, and mature appearing with condensed chromatin and scant cytoplasm with admixed large granular lymphocytes. On scanning, no markedly atypical lymphoid cells are seen. Monocytes are mature. Platelets are moderately decreased in number and mainly normal in morphology with rare larger platelets noted. . Aspirate Smears: Cytomorphological examination of the Sweet's stained aspirate smear show spicules present. The overall cellularity is approximately 80%. The myeloid to erythroid ratio is 1:2. Full myeloid maturation is identified and is without significant dyspoiesis. Erythroid maturation is mildly to focally moderately dyserythropoietic with irregular nuclear contours, binucleate forms, left shifted maturation, rare mitotic figures, and nuclear cytoplasmic dyssynchrony. In a 500 cell differential, there are less than 1% blasts (no Dinora rods are seen), 36% more differentiated myeloids, 58% erythroid precursors, 6% lymphocytes and less than 1% plasma cells. Megakaryocytes are proportional in number and both normal and abnormal in morphology with variable sizes within the nuclear abnormalities. No lymphoid aggregates or markedly atypical lymphoid cells are seen. Plasma cells are without atypia. Iron stain of the aspirate smear shows 1/4+ iron positivity with spicules present. No ringed sideroblasts are identified. . Core Biopsy and Cell Clot: The decalcified bone marrow core biopsy is adequate. The bone marrow is hypercellular with an overall cellularity of approximately 80%. The myeloid to erythroid ratio is 1:2. Myeloid maturation is without significant dyspoiesis. Erythroid maturation is mildly dyserythropoietic. Megakaryocytes are normal in number and both normal and abnormal in morphology. No lymphoid aggregates or markedly atypical lymphoid cells are seen. Bony trabeculae and blood vessels are unremarkable. The cell clot has spicules present that are similar in cellularity and differential morphology as previously described. Rare lymphoid aggregates composed of small lymphocytes are noted. . [address] [address] PATHOLOGY RPT PROCEDURE Name: DARRICK IQBAL Room #: 362-P [facility] IN M.R.#: [id number] Admission: 03/09/19 Date of : 36 Discharge: 03/20/19 Report #: [id number] Path Case #: [id number] Properly controlled special stains are performed. Block A1: Iron - 1/4+ iron positivity; Reticulin - No significant reticulin fibrosis. . Block B1: Iron - 1/4+ iron positivity. . Due to the marked erythroid hyperplasia, to confirm the flow cytometry findings and to identify cells in a tissue architectural context, properly controlled immunohistochemical stains are performed. Block A1: CD34 - No increased or abnormally localized blasts; CD117 - No increased or abnormally localized blasts; MPO - Confirms the M/E ratio; Glycophorin A - Confirms the M/E ratio; PAX5 - Rare scattered small B-cells; CD3 - Occasional scattered T-cells; CD31 - Normal number and size of megakaryocytes; CD138 - Very rare scattered plasma cells; [place] and lambda in situ hybridization - No clonal population identified. . Block B1: CD34 - No increased blasts; CD117 - No increased blasts; MPO - Confirms the M/E ratio; Glycophorin A - Confirms the M/E ratio; PAX5 - Rare scattered small B-cells and occasional aggregates; CD3 - Scattered admixed T-cells and occasional aggregates; CD31 - Normal number and size of megakaryocytes; CD138 - Occasional scattered plasma cells (less than 5%); [place] and lambda in situ hybridization - Plasma cells are polyclonal. . Flow Cytometry: Flow cytometric immunophenotypic analysis was performed at [facility]. The diagnosis is "no significant immunophenotypic abnormalities detected." There are 0.2% myeloid blasts. There are 4% lymphocytes. Of the lymphocytes, there are 0.4% polyclonal B-cells. T-cells have a CD4/CD8 ratio of 1.6 and no aberrant T-cell antigen expression. Please see separate flow cytometry report from [facility] ([id number]). . Cytogenetics Analysis: Cytogenetic chromosomal analysis is pending at [facility] ([id number]). FISH analysis is pending at [facility] ([id number]) (CLW:gilberto; 03/24/2019) . [address] [address] PATHOLOGY RPT PROCEDURE Name: DARRICK IQBAL Room #: 106-P DIS IN M.R.#: [id number] Admission: 03/09/19 Date of : 36 Discharge: 03/20/19 Report #: [id number] Path Case #: [id number] Pathologist provided ICD-10: D53.9, D69.6, R71.8, D75.89 . 02 CPT . 714724, 864957, 638144, 868697, 141944, 387206, 579868, 958667, 274559, C51005, L90303, W12272, W46360 Specimen Comment: A courtesy copy of this report has been sent to [phone], [phone] Specimen Comment: 0080, , Specimen Comment: Report sent to ,DR WATSON,DR CROWELL / DR BRITO Performed at: 01 [facility] [address] [id number] MD Vladislav Farias MD Phone: [phone] Performed at: 02 [place] [id number] [address] [id number] MD Natalio Holland MD Phone: [phone]
== END 2019-03-20 14:12 | DRG 808 ==
LOC: ER 12:14 → 3W 14:29 → EROBS 14:29 → 3W 14:29
PROVIDERS: Emergency Medicine; Hospitalist; Internal Medicine; Internal Medicine Gastroenterology; Internal Medicine Hematology & Oncology; Internal Medicine Nephrology; Nurse Practitioner; Nurse Practitioner Family; ADMIT Hospitalist
DX: D59.1 Other autoimmune hemolytic anemias (principal); N17.0 Acute kidney failure with tubular necrosis; G92 Toxic encephalopathy; J96.01 Acute respiratory failure with hypoxia; N18.4 Chronic kidney disease, stage 4 (severe); I13.0 Hypertensive heart and chronic kidney disease with heart failure and stage 1 through stage 4 chronic kidney disease, or unspecified chronic kidney disease; I48.20 Chronic atrial fibrillation, unspecified; D62 Acute posthemorrhagic anemia; J44.9 Chronic obstructive pulmonary disease, unspecified; K74.60 Unspecified cirrhosis of liver; I25.10 Atherosclerotic heart disease of native coronary artery without angina pectoris; I49.5 Sick sinus syndrome; E11.51 Type 2 diabetes mellitus with diabetic peripheral angiopathy without gangrene; I25.5 Ischemic cardiomyopathy; E78.5 Hyperlipidemia, unspecified; E03.9 Hypothyroidism, unspecified; I50.9 Heart failure, unspecified; F03.90 Unspecified dementia, unspecified severity, without behavioral disturbance, psychotic disturbance, mood disturbance, and anxiety; N40.0 Benign prostatic hyperplasia without lower urinary tract symptoms; M10.9 Gout, unspecified; M19.90 Unspecified osteoarthritis, unspecified site; E66.01 Morbid (severe) obesity due to excess calories; G47.33 Obstructive sleep apnea (adult) (pediatric); D69.6 Thrombocytopenia, unspecified; G47.00 Insomnia, unspecified; E11.22 Type 2 diabetes mellitus with diabetic chronic kidney disease; D58.9 Hereditary hemolytic anemia, unspecified; R16.2 Hepatomegaly with splenomegaly, not elsewhere classified; K57.30 Diverticulosis of large intestine without perforation or abscess without bleeding; E80.6 Other disorders of bilirubin metabolism; E87.5 Hyperkalemia; K64.8 Other hemorrhoids; K31.89 Other diseases of stomach and duodenum; Z87.891 Personal history of nicotine dependence; Z88.0 Allergy status to penicillin; Z88.8 Allergy status to other drugs, medicaments and biological substances; Z95.1 Presence of aortocoronary bypass graft; Z68.28 Body mass index [BMI] 28.0-28.9, adult; Z87.11 Personal history of peptic ulcer disease; Z95.820 Peripheral vascular angioplasty status with implants and grafts; Z95.0 Presence of cardiac pacemaker; Z79.82 Long term (current) use of aspirin; Z79.899 Other long term (current) drug therapy
CPT/HCPCS: 10080; 10879; 62110; 62900; 70005

== ENCOUNTER 2019-03-20 12:11 | Inpatient (IN) | payer OTHER ==
[~2019-03-20] VITALS: Ht 175.3 cm; Wt 99.8 kg
[~2019-03-20 12:11] MED LIST changes: +CRESTOR20 MG PO; +FEOSOL325 M1 PO; +TORSEMIDE20 MG PO; +TOUJEO MAX300 UNIT/1 SUBQ; +TRAZODONE HCL100 MG PO; +TRAZODONE HCL50 MG PO; +TRIAMCINOLONE A80 G2 TOP; +VOLTAREN GEL 1100 G1 TOP; +ZYLOPRIM300 MG PO
[2019-03-20] MEDS ORDERED: MELATONIN5 M1 PO (12:51)
[2019-03-20] MEDS ORDERED: SEROQUEL 25 MG25 M1 PO (12:51)
[2019-03-20] MEDS ORDERED: LANTUS SUBQ (12:51)
[2019-03-20] MEDS ORDERED: PREDNISONE 20 M20 M1 PO (12:51)
[2019-03-20] MEDS ORDERED: HUMALOG100 UNIT/1 SUBQ ×2 (12:51)
[2019-03-20] MEDS ORDERED: PANTOPRAZOLE SO40 M1 PO (12:51)
[2019-03-20] MEDS ORDERED: OXYCODONE HCL 55 MG PO (12:51)
[2019-03-20] MEDS ORDERED: REGLAN 5 MG TAB5 MG PO (12:51)
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
[2019-03-20 17:27] VITALS: BP 121/72
--- NOTE | 2019-03-20 18:40 | NUR ---
ASSUMED CARE OF PT AT 1430. REPORT RECEIVED PRIOR TO PT ARRIVAL ON UNIT. PT ASSISTED INTO BED BY STAFF. PT IS A&OX3 AND VITAL SIGNS ARE STABLE ADMISSION ASSESSMENT, VITAL SIGNS AND WEIGHT OBTAINED. ADMISSION FORMS SIGNED AND ADMISSION EDUCATION COMPLETED. PERIPHERAL IV IN RIGHT WRIST PATENT, DRESSING C/D/I, AND SITE WNL. PT IS NOTABLY LETHARGIC AND SLEEPY. DENIES PAIN. FALL PRECAUTIONS IN PLACE AND NURSING WILL CONTINUE TO MONITOR.
[2019-03-20 22:10] VITALS: BP 126/65
--- NOTE | 2019-03-21 00:12 | NUR ---
PT ASSESSMENT DONE. PT STATED "LEAVE ME ALONE. I JUST WANT TO SLEEP. DON'T YOU PEOPLE REALIZE IT IS LATE. (7:45 PM) IF YOU BRING ANY PILLS IN, I'M GOING TO THROW THEM ON THE FLOOR. I DON'T WANT TO BE STUCK." PT REFUSED TO LET VSS AND BLOOD SUGAR BE TAKEN. STARTED MOANING LATER IN SHIFT ABOUT FEELING SICK TO HIS STOMACH. UP TO BR WITH ASSIST X 2 TO URINATE. DAVID PHILIPPE CALLED FOR NAUSEA MED. PT UP IN CHAIR AFTER SLEEPING AWHILE. ALLOWED VS AND TOOK ALL PILLS AT 10:15 PM. PT COOPERATIVE AT 11;20 TO HAVE BS DONE. GAVE 1/2 DOSE OF GLARGINE INSULIN DUE TO NAUSEA AND DOSE IVP ZOFRAN. PT ASSISTED BACK TO BED. SLEEPING AT THIS TIME. HOURLY ROUNDING. CALL LIGHT IN REACH. FALL PRECAUTIONS IN PLACE. WILL CONTINUE TO MONITOR.
--- NOTE | 2019-03-21 03:47 | NUR ---
PT CALLING OUT IN SLEEP FOR HELP WITH NAUSEA. FINALLY UP IN RECLINER AT 0230. WAIITNG ON PHARMACY TO [facility] WITH OXYCODONE. PT FELL ASLEEP IN RECLINER BEFORE MED ARRIVED. WILL CONTINUE TO MONITOR.
--- NOTE | 2019-03-21 07:20 | NUR ---
IV ACCESS CAME OUT SO NOT ABLE TO GIVE ZOFRAN IVP. ALL OTHER MEDS PLUS OXYCODONE GIVEN WHEN PT WOKE UP AT SHIFT CHANGE.
[2019-03-21 08:58] LABS: HEMOGLOBIN 6.7 gm/dL (14.0-18.0); WBC 3.9 thou/uL (4.0-11.0)
[2019-03-21 09:00] LABS: HEMATOCRIT 21.5 % (42.0-52.0); MCH 39.3 pg (26.0-34.0); MCHC 30.9 g/dL (28.0-37.0); MCV 126.9 fL (80.0-100.0); RBC 1.7 mil/uL (4.50-6.00); RDW 21.5 % (10.5-14.5)
[2019-03-21 09:10] LABS: CREATININE 2.8 mg/dL (0.7-1.3)
[2019-03-21 09:12] LABS: POTASSIUM 6.1 mmol/L (3.5-5.1)
[2019-03-21 09:20] LABS: CALCIUM 9.1 mg/dL (8.5-10.1)
[2019-03-21 10:28] VITALS: BP 142/75
--- NOTE | 2019-03-21 18:46 | NUR ---
POTASSIUM CORRECTED EARLIER. SPOKE WITH DR. HE WILL JUST ORDER AM K PATIENT HAS CHRONI HIGH POTASSIUM. HE HAS BEEN QUITE PLEASANT TODAY. UP TO BATHROOM WITH MINIMAL ASSIST. HE AMBULATES WITH SOME SWAGGER. BUT OVERALL STEADY. WILL CONT WITH PLAN OF CARE.
[2019-03-21 22:25] VITALS: BP 127/62
--- NOTE | 2019-03-22 05:55 | NUR ---
PT ASSESSMENT COMPLETED AND VSS. MEDS GIVEN ORDERED AND WELL TOLERATED. FALL PRECAUTIONS IN PLACE. PT VERY AGITATED AND REFUSED ALL MEDS EARLY DURING SHIFT. YELLING AT STAFF. THEN C/O NAUSEA. THEN PT CHANGED HIS MIND AND DECIDED TO TAKE ONLY ORAL MEDICATION WITH HIS NAUSEA MEDICATION. PT REFUSED INSULIN. 0 EMESIS. NAUSEA IMPROVED. DAVID PHILIPPE CONTACTED REGARDING PT REFUSAL OF MEDICATION. SLEEPING ON AND OFF. WILL CONTINUE TO MONITOR FREQUENTLY.
[2019-03-22 08:00] VITALS: BP 162/73
--- NOTE | 2019-03-22 10:31 | HC ---
[facility] [place] [address] CONSULTATION Name: DARRICK GONZALEZ Room #: 514-P [facility] IN M.R.#: [id number] Admission: 03/20/19 Attend Phys: Jose Valencia MD Discharge: Date of : 38 Report #: [id number] THIS REPORT FOR: //name// CC: Jose Licona DATE OF SERVICE: 03/21/2019 ENDOCRINE CONSULTATION NOTE CONSULTING PHYSICIAN: Dr. Jose Valencia. REASON FOR CONSULTATION: Uncontrolled type 2 diabetes mellitus. HISTORY OF PRESENT ILLNESS: This is an 78-year-old male patient whose medical background is significant for type 2 diabetes mellitus, coronary artery disease, COPD, peripheral vascular disease, and early dementia changes. The patient was admitted to [facility] on 03/09/2019 with progressive decline in his is wellbeing, fatigue, tiredness and was found to be severely anemic. Later during his hospital stay, this was concluded to be a result of severe synthetic anemia without active GI loss. This was felt to be a result of an autoimmune hemolytic anemia and as such, the patient was started on high-dose steroid therapy, which later was taken up in the form of prednisone 80 mg daily. The patient showed a slow, but steady response to this approach with his hemoglobin rising from about 5 to high of 7.1 mg/dL over the past few days. Also, the patient had continued with issues of acute kidney injury on top of chronic kidney disease and hyperkalemia. From the diabetes standpoint, the patient has had type 2 diabetes mellitus for many years and was maintained at home on a basal bolus regimen consisting of Levemir insulin 24 units q.p.m. in addition to NovoLog insulin taken as 14, 14, and 17 units before meals. Reportedly, the patient had done rather well on this regimen with blood glucose control maintained in the desired therapeutic range of 100-180 mg/dL without much issue in terms of severe hyperglycemia or hypoglycemia. Again, I was informed by the patient's family that he had been manifesting early changes of dementia and has raised concerns over his reliability, handling his own medicines, and therefore his has been the primary caregiver when it comes to administering insulin and other medicines. It is not documented that the patient has diabetic retinopathy, but he does have a chronic kidney disease, peripheral neuropathy as well as cardiac issues pertaining to CAD, peripheral vascular disease, ischemic cardiomyopathy, and congestive heart failure with episodic generalized edema. Also, the patient has hypothyroidism and is maintained on a stable dose of levothyroxine 75 mcg daily, which was verified as being adequate during this [address] [address] CONSULTATION Name: DARRICK GONZALEZ Room #: 514-P [facility] IN ..#: [id number] Admission: 03/20/19 Attend Phys: Jose Valencia MD Discharge: Date of : 38 Report #: [id number] hospital stay. I was specifically consulted because the patient had dealt with severe hyperglycemia that was rather unusual for him and has had a few days where his blood glucose values have consistently run above 300 and often above 400 mg/dL. This was believed to be an immediate result of his high dose glucocorticoid therapy and had led to the advancement of his insulin regimen to where he had started taking Lantus at a dose of 38 units q.p.m. and Humalog at 18 units with meals. With this regimen, the patient has had several days where his blood glucose control was ideal and have run into range of 100-180 mg/dL with only one episode of mild hypoglycemia. REVIEW OF SYSTEMS: CONSTITUTIONAL: Fatigue, tiredness, but not fever or chills. No weight changes. HEENT: Negative for sore throat, earache, or ear drainage. PULMONARY: Shortness of breath, cough, not worse than usual. CARDIAC: Lower extremity edema, abdominal distention, and dyspnea on exertion. No chest pain, no palpitations. GASTROINTESTINAL: Abdominal distention, abdominal discomfort, occasional nausea, and no vomiting. NEUROLOGY: Negative for loss of consciousness, seizures, or major severe and frequent headaches. SKIN: No major rash or ulceration. The patient has frequent bruising issues. PSYCHIATRIC: Denies delusions, hallucinations, or significant mood swings. Otherwise, review of systems noncontributory other than those mentioned in HPI. PAST MEDICAL HISTORY: 1. Type 2 diabetes mellitus. 2. Chronic kidney disease. 3. Coronary artery disease and ischemic cardiomyopathy. 4. Congestive heart failure. 5. Peripheral vascular disease. 6. Hypertension. 7. Hyperlipidemia. 8. Hypothyroidism. 9. Benign prostatic hypertrophy. 10. Overall debility. 11. 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 12. Severe thrombocytopenia. 13. Sick sinus syndrome. 14. Chronic obstructive pulmonary disease. 15. Obstructive sleep apnea. 16. Obesity. CURRENT MEDICATIONS: Include levothyroxine 75 mcg daily, mirtazapine 50 mg [facility] [address] [place] [address] CONSULTATION Name: DARRICK GONZALEZ Room #: 514-P ADM IN M.R.#: [id number] Admission: 03/20/19 Attend Phys: Jose Valencia MD Discharge: Date of : 38 Report #: [id number] tablet, multivitamin, Flonase, Flomax, albuterol, allopurinol, trazodone, Seroquel, pantoprazole, Reglan, prednisone 80 mg daily, Lantus insulin 38 units q.p.m., Humalog 18 units before meals, melatonin p.r.n. ALLERGIES: DONEPEZIL, PENICILLIN, LORAZEPAM, AND TRAMADOL. PAST SURGICAL HISTORY: 1. Cholecystectomy. 2. Renal stone extraction/removal, sinus surgery, prostate surgery, and quadruple bypass gastric surgery. FAMILY HISTORY: Noncontributory. SOCIAL HISTORY: There is no active use of tobacco, alcohol, or illicit drugs. The patient lives with his . He appears to have a fairly close knit family. Both sons are involved in his active medical management. His is his main caregiver when it comes to medicinal administration. PHYSICAL EXAMINATION: GENERAL: Pleasant male patient who is not in apparent distress, sitting comfortably in his bed. VITAL SIGNS: Blood pressure is 142/75 mmHg, heart rate is 72 beats per minute, respiration 16 per minute, temperature is 36.4 degrees. CONSTITUTIONAL: The patient is sitting comfortably, not in apparent distress. HEENT: Anicteric sclerae. Intact extraocular motions. NECK: Supple, without JVD. No thyromegaly. CHEST: Noted for moderate entry bilaterally with scattered rales and rhonchi. HEART: Regular rate and rhythm without murmurs or gallops. ABDOMEN: Distended, but soft. No guarding or organomegaly. Active bowel sounds. EXTREMITIES: Lower extremity exam is noted for pitting edema bilaterally with deep stasis dermatitis changes over both lower extremities. Pedal pulses are faint. Sensation to light touch is diminished bilaterally. NEUROLOGIC: Awake, alert, and oriented to time, place and person, moves all extremities spontaneously. PSYCH: Pleasant, interactive, and appropriate. Normal mood and affect. LABORATORY DATA: White blood count 3.9, hemoglobin 6.7, hematocrit 21.5, platelets 64. Sodium 134, potassium 6.1, chloride 106, carbon dioxide 19, BUN 80, creatinine 2.8, GFR 22, glucose 136, calcium 9.1, glucose readings over the past 24 hours went from 68-72, 155, and 37. ASSESSMENT AND PLAN: 1. Type 2 diabetes mellitus. As noted above, the patient has had what can be considered well controlled diabetes mellitus historically with a stable glycemic outlook at home. However, these dynamics change dramatically when he presented [address] [address] CONSULTATION Name: DARRICK GONZALEZ Room #: 514-P ADM IN .R.#: [id number] Admission: 03/20/19 Attend Phys: Jose Valencia MD Discharge: Date of : 38 Report #: [id number] to the hospital in the setting of his acute illness as well as the need to use large doses of glucocorticoids. Subsequently, his insulin requirements have risen sharply, but with that added insulin support, the patient managed to do well and maintained adequate glycemic control. While the current insulin regimen has worked rather well for the patient over the past several days, I had actually anticipated that he would likely need less insulin support in the days to come as he begins physical rehabilitation efforts due to his increase physical activity. Yesterday, I saw glimpses of mild hypoglycemia occurring twice, which is kind of unusual for this patient. That said, and in order to prevent further hypoglycemia from occurring, I will cut back his Lantus insulin dosage to 34 units at bedtime while at the same time cutting back his Humalog dosage to 15 units with meals. Nonetheless, I will maintain support with Humalog supplemental scale, moderate intensity, and maintain blood glucose monitoring a.c. and at bedtime to help adjust his insulin intake as needed. I suspect that as we go forward and improve his overall physical activity as well as need less glucocorticoid that will gradually find ourselves needing progressively lower doses of insulin. This will be determined as per his course. 2. Hypothyroidism. The patient has been on a stable dose of levothyroxine at 75 mcg daily. The adequacy of the dose was investigated recently with a free T4 that was at 1.1 and a TSH that was 1.508. As such, the patient is to continue the current levothyroxine dose of 75 mcg daily. 3. Hypertension. The patient's level of blood pressure control has been generally adequate, he is to continue with the current regimen. 4. Anemia. This is believed to be an autoimmune hemolytic anemia and has shown a satisfactory yet slow response to high dose steroid therapy. That said, the patient remains on high dose prednisone at 80 mg daily. This will be managed as per the Hematology team recommendations. 5. Hyperlipidemia. The patient has had hyperlipidemia historically. However, I do agree that it would probably be more reasonable to await further stability for his more pressing medical issues, especially anemia prior to considering resuming a statin therapy. I have reviewed the patient's current and past clinical care reports, laboratory data, home medications, medication reconciliations, and his recent discharge summary from [facility] and other pertinent clinical data for a collective time that is well over 35 minutes. I appreciate this consultation by Dr. Valencia. <ELECTRONICALLY SIGNED> By: Donya Stephens MD 03/22/19 1031 1140 1216 Donya Stephens MD /nt
[2019-03-22 11:15] VITALS: BP 149/56
[2019-03-22 11:58] LABS: HEMATOCRIT 23.9 % (42.0-52.0); HEMOGLOBIN 7.4 gm/dL (14.0-18.0); MCH 38.9 pg (26.0-34.0); MCV 125.3 fL (80.0-100.0); RBC 1.9 mil/uL (4.50-6.00); RDW 19.8 % (10.5-14.5); WBC 8.4 thou/uL (4.0-11.0)
[2019-03-22 12:10] LABS: CALCIUM 9.5 mg/dL (8.5-10.1); CREATININE 2.8 mg/dL (0.7-1.3); POTASSIUM 5.4 mmol/L (3.5-5.1)
--- NOTE | 2019-03-22 14:23 | NUR ---
FAMILY VISIBLY UPSET ABOUT PT CONDITION, C/O EDEMA, WEEPING BLE, INCREAED B/P, IRRITABILITY, AND NAUSEA. FAMILY STATES THAT PCP HAS TOLD THEM THAT PT SHOULD NOT BE PLACED ON SEROQUEL D/T KIDNEY FUCTION CONCERNS. FAMILY STATES THAT THEY DID NOT BRING PATIENT TO HOSPITAL TO BE TREATED FOR DEMENTIA AND DO NOT WANT PT ON ANTIPSYCHOTIC MEDICATIONS. PT BLOOD PRESSURE 162/73, BLE +3 PITTING EDEMA WITH WEEPING, LUNG SOUNDS CLEAR OVER CRACKLES WITH WHEEZING, NON-PRODUCTIVE COUGH NOTED WITH DEEP INSPIRATION. FAMILY EXPRESSED THAT THEY WOULD LIKE TO HAVE CONVERSATIONS WITH HOSPITALIST AND INSPECTOR MATERIAL DISPOSITION ABOUT CONCERNS. NOTIFIED PROVIDERS OF CONCERNS. HOSPITALIST SPOKE WITH FAMILY ABOUT CONCERNS AND D/C'D SEROQUEL. NEPHROLOGY GAVE ORDERS FOR 40MG LASIX IV BID, GAVE PERMISSION FOR NURSING TO WRAP LEGS FOR EDEMA, AND INSTRUCTED THAT PT TO HAVE LOW SALT DIET. THIS NURSE ADMINISTERED IV LASIX, WRAPPED BLE, AND PROVIDED EDUCATION TO PT AND FAMILY ABOUT DIETARY SODIUM OPTIONS. PT FAMILY STATES THAT THEY WILL STAY OVERNIGHT TO HELP MANAGE BEHAVIOURAL CONCERNS. FAMLY WOULD ALSO LIKE TO EXPLORE OPTIONS WITH LORAZEPAM, BUT ARE CONCERNED THAT IN PAST HE WAS TOO SEDATED WHEN GIVEN LORAZEPAM THREE TIMES PER DAY. AT THIS TIME PT IS RESTING IN CHAIR, NURSING MONITORING I&O'S, AND FALL PRECAUTIONS IN PLACE. FAMILY AT THE BEDSIDE.
--- NOTE | 2019-03-22 16:46 | NUR ---
ASSUMED CARE OF PT AT 0730. REPORT RECEIVED FROM NIGHT NURSE THAT PT DIDN'T COOPERATE WITH CARE. AGITATED, OPTOMETRY PROFESSOR WAS CALLED, SEROQUEL GIVEN WITH NIGHT MEDS. PT ABLE TO REST AFTER THAT. 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 INFORMED FAMILY THAT PT WAS OUT OF HAND AND WAS IMPULSIVE LAST NIGHT. NOTIFIED DR. SEVERINO TO COME TO TALK TO FAMILY AND ADDRESS THEIR CONCERNS. OBTAINED ORDER TO D/C SEROQUEL PER FAMILY REQUESTS. PT C/O CONSTIPATION THIS AM. PRN MIRALAX GIVEN WITH MORNING MEDS. HAD ONE LARGE FORMED BM AND 3X SMALL LOOSE STOOL AFTER THAT. SNEHA, OTHER RN ASSISTED TO CALL DR. ZAPATA OBTAINED ORDER FOR LASIX D/T EDEMA. B/P WAS 162/73, HR 80. DR. SEVERINO AND DR. ZAPATA AWARE OF HIGH B/P. RECHECK B/P AT 1115, BP 149/56, HR 78. PT C/O NAUSEA, PRN ZOFRAN GIVEN VIA LEFT FOREARM IV. PATENT AND INTACT. HGB WAS 6.7, K 6.1 YESTERDAY. FAMILY WAS ANXIOUS THIS AM AND REQUESTED TO RECHECK LAB. HGB 7.4, K 5.4 TODAY. THEY ARE FEELS BETTER AFTER THAT. PT ASSISTED INTO BED BY STAFF. PT IS A&OX3 DENIES PAIN. IV LASIX 40MG GIVEN TWICE. PT URINATED 800CC YELLOW URINE. FEELS BETTER NOW. APPETITE IMPROVE THIS EVENING. UP TO RECLINER. CONT B&B FALL PRECAUTIONS IN PLACE AND NURSING WILL CONTINUE TO MONITOR. DAUGHTER PLAN TO STAY WITH PT TONIGHT AND ASSIST STAFF TO KEEP PT SAFE. WILL GIVE REPORT TO NIGHT NURSE TO CONTINUE TO MONITOR.
[2019-03-22 20:05] VITALS: BP 143/62
[2019-03-22 22:30] LABS: URINE BILIRUBIN NEGATIVE (Negative); URINE BLOOD NEGATIVE (Negative); URINE CLARITY CLEAR; URINE COLOR YELLOW; URINE GLUCOSE-RANDOM* NEGATIVE (Negative); URINE KETONES NEGATIVE (Negative); URINE LEUKOCYTES-REFLEX NEGATIVE (Negative); URINE NITRITE-REFLEX NEGATIVE (Negative); URINE PROTEIN (DIPSTICK) NEGATIVE (Negative); URINE SPECIFIC GRAVITY 1.015 (1.005-1.035); URINE UROBILINOGEN 0.2 E.U./dl (0.2-1.0)
--- NOTE | 2019-03-22 23:04 | NUR ---
PT ASSESSMENT COMPLETED AND VSS. MEDS GIVEN ORDERED AND WELL TOLERATED. FALL PRECAUTIONS IN PLACE. SUPPORTIVE DAUGHTER IN TO HELP WITH PT EARLY DURING SHIFT. PT MUCH MORE CALM AND ORIENTED WITH FAMILY IN THE ROOM. PT WAS LESS AGITATED SO FAR THIS EVENING AND WAS WILLING TO TAKE HIS MEDICATION, INSULIN, AND SNACK. PTS URINE VERY STRONG SMELLING. CONTACTED DAVID PHILIPPE FOR UA ORDERS. URINE SAMPLE PENDING AT THIS TIME. CPAP ON. SLEEPING WELL AT THIS TIME. WILL CONTINUE TO MONITOR FREQUENTLY.
[2019-03-23 07:59] VITALS: BP 147/53
[2019-03-23 08:31] LABS: HEMOGLOBIN 7.2 gm/dL (14.0-18.0); MCH 38.6 pg (26.0-34.0); MCHC 31.3 g/dL (28.0-37.0); MCV 123.5 fL (80.0-100.0); RBC 1.86 mil/uL (4.50-6.00); RDW 18.6 % (10.5-14.5); WBC 3.9 thou/uL (4.0-11.0)
[2019-03-23 08:38] LABS: CALCIUM 9.2 mg/dL (8.5-10.1); CREATININE 2.7 mg/dL (0.7-1.3); MAGNESIUM 2.7 mg/dL (1.8-2.4); POTASSIUM 5.5 mmol/L (3.5-5.1)
--- NOTE | 2019-03-23 12:40 | NUR ---
Nutrition: pt admit to rehab unit with dx anemia. PMH: liver cirrhosis, CKD stage 4, CAD, PVD, DM, cardiomyopathy. Pt has a good appetite, po doc 50-100% of meals on carb controlled, heart healthy diet. BG 149-182, improved from acute trends. Weights up to 220# from reported UBW of 207#. 2+ bilateral leg edema present and diuresing. Noted tries to assure pt eats a high fiber diet at home due to diverticulitis hx. Noted pt was drinking glucerna on acute. Ensure is ordered TID on rehab unit. RD will change to glucerna BID. Low nutrition risk.
--- NOTE | 2019-03-23 14:19 | NUR ---
ASSUME PT CARE AT 0700. NIGHT NURSE REPORTS PT REFUSED 6AM & 7AM MEDS AND REFUSED LABS DRAW THIS AM. DR. ZAPATA WAS HERE AND AWARED PT WAS NONCOMPLIANCE WITH TREATMENT AND GAVE STAFF A HARD TIME. SON CAME IN AND WITH DIFFICULTY LABS WAS DRAWN AND SENT TO LAB. HGB 7.2, K 5.5, CREATINE REMAIN HIGH YESTERDAY. PT IS A&OX3, [place] AND FORGETFUL. CONTINUE TO BE ON IV LASIX BID. C/O PAIN WHEN FLUSHES. NO SIGN OF INFILTRATION. DISCUSSED WITH MARIE TO SEE IF PT CAN HAVE PICC LINE FOR IV LASIX AND FREQUENT BLOOD DRAW. SHE SUGGESTS TO DISCUSS WITH DR. ZAPATA. DOCTOR SAID "NO PIC LINE, NO MID LINE' OK WITH EMLA CREAM. PT C/O FEET PAIN RATES PAIN 8/10, PT HAS GOUT, FAMILY DOESN'T WANT PT TO TAKE OXYCODONE. THEY REQUEST PT TO BE ON TYLENOL, REMERON SCHEDULE. NOTIFIED DR. SEVERINO AND MARIE AND OBTAINED ORDERS. ENCOURAGED PT TO EAT AT DINNING ROOM. PT UP TO DINNING FOR LUNCH. APPETITE IS GETTING BETTER. CONT B&B. HAD BM TODAY. FALL PRECAUTIONS IN PLACE AND NURSING WILL CONTINUE TO MONITOR.
--- NOTE | 2019-03-23 18:26 | NUR ---
VAT CONSULTED FOR THIS PT FOR A CL FOR IV MEDS AND LABS. PT ADAMENTLY REFUSING AND NOT CONSOLIBLE AT THIS TIME. RN TO CALL MD FOR ANTIANXIETY MEDS AND HAVE FAMILY SIGN CONSENT. PT HAS RENAL ISSUES, HGB 7.2, LOW MG+, HIGH K+. ETC. PACER ON THE RT. WILL ATTEMPT TO SEE PT AGAIN WHEN HE IS READY
[2019-03-23 20:12] VITALS: BP 125/43
--- NOTE | 2019-03-24 03:26 | NUR ---
STANDS TO VOID WITH STAFF ASSIST TO HOLD URINAL. USED URINAL FOR 400 CC JESSICA URINE. WAS INCONTINENT SMALL AMOUNT IN THE PROCESS OF GETTING UP FROM SLEEPING. TOLERATED HOME CPAP 4 AND A HALF HOURS () BEFORE WANTING IT TURNED OFF WHILE HE GOT UP IN A CARDIAC CHAIR. HAS BEEN SLEEPING IN CHAIR SINCE THEN. DENIES PAIN
--- NOTE | 2019-03-24 05:00 | NUR ---
BACK TO BED, SBA. LYING SLIGHTLY ON LEFT SIDE
[2019-03-24 08:21] VITALS: BP 142/63
--- NOTE | 2019-03-24 14:00 | NUR ---
team meeting, recommendation: family to have training to take pt back and forth to the restroom. dc [facility] ( pt, ot, nursing). no dme needs. frequent checks with assist with bills and pills..
[2019-03-24 19:12] VITALS: BP 139/63
--- NOTE | 2019-03-24 19:56 | NUR ---
Patient is cooperative today, BG was 60 this morning, back to 115 after eating; good appetite. afebrile.
--- NOTE | 2019-03-25 03:02 | NUR ---
PT ASSESSMENT DONE AND VSS. MEDS/INSULIN GIVEN AND WELL TOLERATED. PT COOOPERATIVE THIS EVENING. FALL PRECAUTIONS IN PLACE. SLEEPING WELL. DAUGHTER CALLED TO CHECK ON HIM. HOURLY ROUNDING. CALL LIGHT IN REACH. WILL CONTINUE TO MONITOR.
[2019-03-25 04:26] LABS: ALBUMIN 3.1 g/dL (3.4-5.0); CALCIUM 8.4 mg/dL (8.5-10.1); CREATININE 2.4 mg/dL (0.7-1.3); PHOSPHORUS 4.7 mg/dL (2.5-4.9); POTASSIUM 4.7 mmol/L (3.5-5.1)
[2019-03-25 08:15] VITALS: BP 148/60
[2019-03-25 11:16] LABS: HEMATOCRIT 22.2 % (42.0-52.0); HEMOGLOBIN 6.9 gm/dL (14.0-18.0)
--- NOTE | 2019-03-25 11:30 | NUR ---
ASSUMED CARE AT 0700. PATIENT IS ALERT AND ORIENTED X3, FORGETFUL AND IMPULSIVE AT TIME. LUNGS ARE CLEAR AND DEMINISHED. ABD IS SOFT WITH BSX4. UP TO THE BATHROOM TO VOID JESSICA COLORED URINE. PATIENT CONTINUES ON ABT WITHOUT ADVERSE AFFECTS. PATIENT HAS LEFT I.J. FOR BLOOD DRAWS AND IVP LASIX. PATIENT HAS +2 EDEMA IN HIS L.E. PATIENT IS UP WITH BRADLEY OF 1 STAFF AND GAIT BELT AND WALKER. PATIENT IS OUT TO THE DINING ROOM FOR MEALS. FALL AND SAFETY PROTOCOLS IN PLACE. DENIES ANY PAIN AT THIS TIME. CONTINUES TO PROGESS TOWARDS D/C GOALS. WILL CONTINUE TO MONITER.
--- NOTE | 2019-03-25 16:58 | NUR ---
Patient participated in therapeutic group on 03/25/[address] Refer to documentation by ST.
[2019-03-25 19:10] VITALS: BP 150/81
--- NOTE | 2019-03-26 02:32 | NUR ---
PT ASSESSMENT COMPLETED AND VSS. MEDS GIVEN ORDERED AND WELL TOLERATED. FALL PRECAUTIONS IN PLACE. UP TO THE BATHROOM WITH ASST/GAIT/WALKER. VOIDING WELL. PRN PAIN MEDICATION WORKING WELL FOR FOOT PAIN. SNACK PROVIDED WITH INSULIN. CPAP ON AT HS. SLEEPING WELL. WILL CONTINUE TO MONITOR FREQUENTLY.
[2019-03-26 06:26] LABS: ABSOLUTE RETIC COUNT 0.1399 10^6/uL; HEMATOCRIT 21.9 % (42.0-52.0); HEMOGLOBIN 7.2 gm/dL (14.0-18.0); MCH 39.7 pg (26.0-34.0); MCHC 32.7 g/dL (28.0-37.0); MCV 121.2 fL (80.0-100.0); OBSERVED RETIC COUNT 7.75 % (0.6-2.6); PLATELET COUNT 60 thou/uL (150-400); RDW 17.6 % (10.5-14.5); WBC 3.1 thou/uL (4.0-11.0)
[2019-03-26 06:43] LABS: CALCIUM 8.2 mg/dL (8.5-10.1); CREATININE 2.2 mg/dL (0.7-1.3); POTASSIUM 4.5 mmol/L (3.5-5.1)
[2019-03-26 06:44] LABS: TOTAL BILIRUBIN 2.3 mg/dL (<0.1-1.0)
[2019-03-26 08:30] VITALS: BP 147/66
[2019-03-26 09:46] LABS: ABSOLUTE NEUTROPHILS 2.8 thou/uL (1.4-8.2); LARGE PLATELETS FEW; METAMYELOCYTES 1 %; PLATELET ESTIMATE DECREASED
[2019-03-26 09:47] LABS: ANISOCYTOSIS 2+; MACROCYTES 1+; POLYCHROMASIA SLIGHT
--- NOTE | 2019-03-26 14:40 | NUR ---
cm follow up with son garrett on dc time and who pick for hh. " are we sure he ready for dc, is his hgb up to 10 and what is results of bone marrow bx. he will use [facility], had them before and they are good"/son garrett. referral to be send to [facility] and passed on information to bedside nurse and MD on son question.
--- NOTE | 2019-03-26 15:03 | NUR ---
DISCHARGE PLANNING. DISCHARGE PLAN IS TO HOME WITH HOME HEALTH SERVICES. PATIENT REFERRAL FAXED TO [facility] PER REQUEST. CALL PLACED TO [facility], SPOKE WITH DONNY IN INTAKE TO NOTIFY. FOLLOWING.
[2019-03-26 15:51] VITALS: BP 147/66
[2019-03-26 20:25] VITALS: BP 144/63
--- NOTE | 2019-03-26 22:32 | NUR ---
PT ASSESSMENT DONE AND VSS. MEDS GIVEN AND WELL TOLERATED. FALL PRECAUTIONS IN PLACE. SLEEPING WELL. HOURLY ROUNDING. CALL LIGHT IN REACH. WILL CONTINUE TO MONITOR.
[2019-03-27 06:46] LABS: ALBUMIN 3.2 g/dL (3.4-5.0); CALCIUM 8.5 mg/dL (8.5-10.1); PHOSPHORUS 3.7 mg/dL (2.5-4.9); POTASSIUM 4.2 mmol/L (3.5-5.1)
[2019-03-27 09:30] VITALS: BP 153/59
[2019-03-27] MEDS ORDERED: LANTUS SUBQ (09:47)
[2019-03-27] MEDS ORDERED: PREDNISONE 20 M20 M1 PO (09:47)
[2019-03-27] MEDS ORDERED: TYLENOL325 MG PO (09:47)
[2019-03-27] MEDS ORDERED: PANTOPRAZOLE SO40 M1 PO (09:47)
[2019-03-27] MEDS ORDERED: NOVOLOG100 UNIT/1 SUBQ ×2 (09:47)
[2019-03-27] MEDS ORDERED: FLOMAX0.4 MG PO (09:47)
[2019-03-27] MEDS ORDERED: DEMADEX20 MG PO ×2 (09:47→09:51)
[2019-03-27] MEDS ORDERED: REGLAN 5 MG TAB5 MG PO (09:51)
[2019-03-27 09:54] VITALS: BP 147/66
[2019-03-27] MEDS ORDERED: MELATONIN5 M1 PO (10:02)
[2019-03-27 11:20] VITALS: BP 147/66
--- NOTE | 2019-04-01 11:02 | PLAN ---
[facility] [place] [address] REHAB UNIT PLAN OF CARE Name: DARRICK GONZALEZ Room #: 514-P [facility] IN M.R.#: [id number] Admission: 03/20/19 Attend Phys: Jose Valencia MD Discharge: 03/27/19 Date of : 36 Report #: [id number] THIS REPORT FOR: //name// CC: Jose Licona DATE OF SERVICE: 03/23/2019 PROGRESS NOTE/OVERALL PLAN OF CARE SUBJECTIVE: The patient was seen back today in followup. He is in no distress. He does not like his labs being drawn. His sons are here trying to encourage him in this regard. PHYSICAL EXAMINATION: VITAL SIGNS: Temperature 36.3, pulse 81, respirations 18, blood pressure 147/53. Transfers are min assist. Gait min assist 15 feet with a front-wheeled walker. In occupational therapy, lower body dressing is max assist. He does have mild to moderate cognitive deficits with moderate to severe memory deficits. ASSESSMENT: 1. Toxic metabolic encephalopathy. 2. Acute hemolytic anemia with hyperbilirubinemia. 3. Medical complex with generalized debilitation. 4. Peripheral vascular disease. 5. Coronary artery disease with history of coronary artery bypass grafting. 6. Atrial fibrillation. 7. Sick sinus syndrome, status post permanent pacemaker. 8. Chronic obstructive pulmonary disease, stable. 9. Obstructive sleep apnea. 10. Recent bone marrow biopsy. Hematology will be following with the results as discussed this morning. PLAN: The overall plan of care is based on the preadmission screen, post-admission physician evaluation and information garnered from therapy assessments. 1. Estimated length of stay is probably at least 10 days to 2 weeks. 2. Medical prognosis is reasonably good. 3. Anticipated interventions includes the interdisciplinary acute inpatient rehabilitation program. 4. Anticipated functional outcomes would be for the patient to become modified independent with transfers, mobility and ADLs at least to the point where he can get around with a walker and family can assist him back to the home setting. Also to improve as far as overall cognition. [facility] [address] [place] [address] REHAB UNIT PLAN OF CARE Name: GONZALEZ,DARRICK Gissel Room #: 514-P [facility] IN M.R.#: [id number] Admission: 03/20/19 Attend Phys: Jose Valencia MD Discharge: 03/27/19 Date of : 38 Report #: [id number]. Discharge destination would be back home with his . 6. Expected therapy by discipline includes PT, OT and speech 1 hour per day each five days a week throughout the duration of the acute inpatient rehabilitation stay. <ELECTRONICALLY SIGNED> By: Jose Valencia MD 04/01/19 1102 1032 [id number] Jose Valencia MD /nt
--- NOTE | 2019-04-01 11:02 | H ---
[facility] [place] [address] HISTORY AND PHYSICAL Name: DARRICK GONZALEZ Room #: 514-P [facility] IN M.R.#: [id number] Admission: 03/20/19 Attend Phys: Jose Valencia MD Discharge: 03/27/19 Date of : 38 Report #: [id number] THIS REPORT FOR: //name// CC: Jose Licona DATE OF SERVICE: 03/20/2019 POSTADMISSION PHYSICIAN EVALUATION HISTORY OF PRESENT ILLNESS: This is an 78-year-old white male who originally admitted to [facility] on 03/09/2019 to the Emergency Department with nausea, vomiting and weakness. He was diagnosed with anemia. Initial hemoglobin being as low as 5.2. He was given packed red blood cells and seen by Gastroenterology. He had a positive PIOTR and a positive HCV antibodies, bilirubin was 9. There was difficulty finding a good match for blood products due to the antibody profile. Sonogram showed hepatosplenomegaly and fatty liver. He had an EGD on 03/13/2019 with results showing no acute lesions, occult stool negative. He underwent a bone marrow biopsy on 03/18/2019 and he was followed by Hematology. He was given high dose steroids. He also was evaluated by Nephrology. Creatinine baseline 2 - 2.5. Medication adjustments were undertaken. He was manifesting significant hyperkalemia and acute kidney injury superimposed on his chronic kidney disease and Nephrology assisted. Endocrinology assisted with his diabetes. There was noted to have cognitive issues with toxic metabolic encephalopathy and decreased overall function from his premorbid level. He has now been admitted for acute in-hospital inpatient rehabilitation. PAST MEDICAL HISTORY: Includes heart disease, hypertension, renal disease and liver disease. PAST SURGICAL HISTORY: Includes cholecystectomy, right kidney stones were removed, sinus surgery, cardiac catheterization, prostate surgery and quadruple gastric surgery. FAMILY HISTORY: Mother had coronary artery disease. HABITS: Tobacco abuse, quit in 2006, 1 - 1.5 packs per day. No history of alcohol abuse. ALLERGIES: DONEPEZIL, PENICILLIN, LORAZEPAM, AND TRAMADOL. MEDICATIONS: Please see the full medication listing. SOCIAL HISTORY: The patient lives at home with his , split level house, 2 steps in, 6 stairs between each level. He did not utilize an assistive device. [facility] [address] [place] [address] HISTORY AND PHYSICAL Name: DARRICK GONZALEZ Room #: 514-P [facility].#: [id number] Admission: 03/20/19 Attend Phys: Jose Valencia MD Discharge: 03/27/19 Date of : 38 Report #: [id number] He was independent with ADLs. He does not drive anymore. does the driving. REVIEW OF SYSTEMS: Did not offer any current complaints of chest pain, shortness of breath or abdominal discomfort. PHYSICAL EXAMINATION: GENERAL: An 78-year-old white male who was seen earlier, was in no distress. He has a definite latency to his responses, but follows basic 1 step commands. VITAL SIGNS: Last recorded temperature 36.7, pulse 90, respirations 20, and blood pressure 126/65. HEENT: Facies appeared to be symmetric. CHEST: Sounded clear to auscultation. CARDIOVASCULAR: Regular rate and rhythm. ABDOMEN: Mild distention. He does have some evidence of jaundice. GENITOURINARY AND RECTAL: Deferred. EXTREMITIES: He has functional range of motion of both upper and lower extremities. Strength is probably a grade 3+ to 4-/5 in upper extremities and -4 in lower extremities to 3+ lower extremities. A 1+ distal bilateral lower extremity edema. No focal calf swelling. Negative Homans. Again, he does follow basic 1 step commands. ASSESSMENT: 1. Toxic metabolic encephalopathy appears to be improving. 2. Acute hemolytic anemia with hyperbilirubinemia. 3. Medical complexity with generalized debilitation. 4. Chronic kidney disease. 5. Peripheral vascular disease. 6. Coronary artery disease with history of coronary artery bypass graft. 7. Atrial fibrillation. 8. Sick sinus syndrome, status post permanent pacemaker. 9. Chronic obstructive pulmonary disease, stable. 10. Obstructive sleep apnea, refuses BiPAP at bedtime. 11. Nausea and vomiting was resolved. 12. There is a history of some dementia. PLAN: The patient is admitted for acute in-hospital inpatient rehabilitation. From a postadmission physician evaluation perspective, there are no relevant changes since the preadmission screening. Please see the above review of prior and current medical and functional conditions and comorbidities. Please see the patient's previous and current functional status. As far as risk of complications, the patient has multiple medical comorbidities as noted above. Initial plan of care involves the interdisciplinary acute inpatient rehabilitation program. Measurable functional goals would be for the patient to become modified independent with transfers, mobility and ADLs as well as improvement in cognition, so that he can hopefully return back to the home setting. Prognosis is reasonably good with estimated length of stay probably at [facility] [address] [place] [address] HISTORY AND PHYSICAL Name: DARRICK GONZALEZ Room #: 514-P [facility] IN M.R.#: [id number] Admission: 03/20/19 Attend Phys: Jose Valencia MD Discharge: 03/27/19 Date of : 38 Report #: [id number] least 10 days to 2 weeks and potentially longer as warranted. Potential barriers would include his multiple medical comorbidities and decreased functional status. The patient meets diagnostic criteria for an acute in-hospital inpatient rehabilitation stay. He meets medical necessity criteria and we will have the multiple outside sales consultant physicians continue to follow. He does have the tolerance for therapies and has appropriate discharge goals back to the home setting. <ELECTRONICALLY SIGNED> By: Jose Valencia MD 04/01/19 1102 1011 110 Jose Valencia MD /nt
== END 2019-03-27 15:47 | disposition home health service (06) | DRG 91 ==
LOC: ENTRNSPT 03-27 14:03 → EDTRNSPTSTS 03-27 14:05
PROVIDERS: Hospitalist; Internal Medicine; Internal Medicine Hematology & Oncology; Nurse Practitioner; Nurse Practitioner Family; ADMIT Physical Medicine & Rehabilitation
DX: G92 Toxic encephalopathy (principal); J96.01 Acute respiratory failure with hypoxia; I13.0 Hypertensive heart and chronic kidney disease with heart failure and stage 1 through stage 4 chronic kidney disease, or unspecified chronic kidney disease; D59.9 Acquired hemolytic anemia, unspecified; I48.20 Chronic atrial fibrillation, unspecified; D62 Acute posthemorrhagic anemia; N17.9 Acute kidney failure, unspecified; I25.10 Atherosclerotic heart disease of native coronary artery without angina pectoris; E11.51 Type 2 diabetes mellitus with diabetic peripheral angiopathy without gangrene; J44.9 Chronic obstructive pulmonary disease, unspecified; F03.90 Unspecified dementia, unspecified severity, without behavioral disturbance, psychotic disturbance, mood disturbance, and anxiety; E11.22 Type 2 diabetes mellitus with diabetic chronic kidney disease; N18.9 Chronic kidney disease, unspecified; I25.5 Ischemic cardiomyopathy; I50.9 Heart failure, unspecified; E78.5 Hyperlipidemia, unspecified; E03.9 Hypothyroidism, unspecified; N40.0 Benign prostatic hyperplasia without lower urinary tract symptoms; R53.81 Other malaise; G47.33 Obstructive sleep apnea (adult) (pediatric); D69.6 Thrombocytopenia, unspecified; G47.00 Insomnia, unspecified; E87.5 Hyperkalemia; R16.2 Hepatomegaly with splenomegaly, not elsewhere classified; F32.9 Major depressive disorder, single episode, unspecified; Z53.29 Procedure and treatment not carried out because of patient's decision for other reasons; E66.9 Obesity, unspecified; Z68.32 Body mass index [BMI] 32.0-32.9, adult; Z88.0 Allergy status to penicillin; Z88.8 Allergy status to other drugs, medicaments and biological substances; Z90.49 Acquired absence of other specified parts of digestive tract; Z82.49 Family history of ischemic heart disease and other diseases of the circulatory system; Z95.1 Presence of aortocoronary bypass graft; Z95.0 Presence of cardiac pacemaker; Z87.442 Personal history of urinary calculi; Z87.891 Personal history of nicotine dependence; Z79.899 Other long term (current) drug therapy; Z79.4 Long term (current) use of insulin
CPT/HCPCS: 10112

== ENCOUNTER → 2019-04-02 | Outpatient (CLI) | payer OTHER ==
[~2019-04-02] MED LIST changes: +HUMALOG100 UNIT/1 SUBQ; +IRON160 M1 PO; +MELATONIN5 M1 PO; +OXYCODONE HCL 55 MG PO; +PANTOPRAZOLE SO40 M1 PO; +PREDNISOLONE 5 M5 M1 PO; +PREDNISONE 20 M20 M1 PO; +RAYOS5 MG PO; +REGLAN 5 MG TAB5 MG PO; +SEROQUEL 25 MG25 M1 PO
== END ==
LOC: ULTRA 14:54
DX: M79.89 Other specified soft tissue disorders (principal); M79.605 Pain in left leg; M79.604 Pain in right leg; D46.9 Myelodysplastic syndrome, unspecified

== ENCOUNTER 2019-04-04 11:19 | Emergency (ER) | payer OTHER ==
[~2019-04-04] VITALS: Ht 175.3 cm; Wt 96.2 kg
[~2019-04-04 11:19] MED LIST changes: -IRON160 M1 PO; -PREDNISOLONE 5 M5 M1 PO; -RAYOS5 MG PO
[2019-04-04 12:27] LABS: HEMATOCRIT 26.2 % (42.0-52.0); HEMOGLOBIN 8.5 gm/dL (14.0-18.0); MCH 38.5 pg (26.0-34.0); MCHC 32.4 g/dL (28.0-37.0); MCV 118.9 fL (80.0-100.0); PLATELET COUNT 72 thou/uL (150-400); RDW 16.4 % (10.5-14.5); WBC 6.8 thou/uL (4.0-11.0)
[2019-04-04 12:39] LABS: CALCIUM 8.8 mg/dL (8.5-10.1); CREATININE 1.9 mg/dL (0.7-1.3); POTASSIUM 4.3 mmol/L (3.5-5.1)
[2019-04-04 12:40] LABS: APTT 29.2 Seconds (24.5-32.8); INR 1.2; PROTIME 12.3 Seconds (9.3-11.4)
[2019-04-04 12:42] LABS: URINE BILIRUBIN NEGATIVE (Negative); URINE BLOOD TRACE (Negative); URINE CLARITY CLEAR; URINE COLOR YELLOW; URINE GLUCOSE-RANDOM* NEGATIVE (Negative); URINE KETONES NEGATIVE (Negative); URINE LEUKOCYTES-REFLEX NEGATIVE (Negative); URINE NITRITE-REFLEX NEGATIVE (Negative); URINE PROTEIN (DIPSTICK) NEGATIVE (Negative); URINE UROBILINOGEN 0.2 E.U./dl (0.2-1.0)
[2019-04-04 12:49] LABS: ALBUMIN 3.2 g/dL (3.4-5.0); TOTAL BILIRUBIN 3.1 mg/dL (<0.1-1.0); TOTAL PROTEIN 6.2 g/dL (6.4-8.2); TROPONIN-I 0.09 ng/mL (<0.06)
[2019-04-04] MEDS ORDERED: IRON160 M1 PO (12:49)
[2019-04-04] MEDS ORDERED: CRESTOR20 MG PO (12:50)
[2019-04-04] MEDS ORDERED: RAYOS5 MG PO (12:50)
[2019-04-04] MEDS ORDERED: PREDNISOLONE 5 M5 M1 PO (12:50)
[2019-04-04] MEDS ORDERED: XARELTO15 MG PO (12:51)
[2019-04-04] MEDS ORDERED: VASCEPA1 GM PO (12:51)
[2019-04-04 13:05] LABS: ABSOLUTE NEUTROPHILS 6.3 thou/uL (1.4-8.2); METAMYELOCYTES 1 %; PLATELET ESTIMATE DECREASED; TOXIC GRANULATION SLIGHT
[2019-04-04 13:06] LABS: ANISOCYTOSIS 1+; POLYCHROMASIA 1+
[2019-04-04 13:07] LABS: MACROCYTES 3+; POIKILOCYTOSIS 1+; TEARDROPS OCCASIONAL
[2019-04-04] MEDS ORDERED: DEMADEX20 MG PO (14:34)
[2019-04-04 15:04] VITALS: BP 149/65
--- NOTE | 2019-04-06 16:06 | EKG ---
[address] [address] ELECTROCARDIOGRAM REPORT Name: DARRICK GONZALEZ [id number] Admission: 04/04/19 Attend Phys: Discharge: 04/04/19 Date of : 38 Report #: [id number] THIS REPORT FOR: //name// [facility] ED Test Date: 2019-04-04 Test Time: 12:12:05 Pat Name: DARRICK GONZALEZ Department: Room: Gender: Insulation Engineman[place] [facility] [place] 1940 Requested By: Nighat Arteaga Order Number: [id number] MD: Chris Landis Measurements Intervals [place] Rate: 84 P: PA: QRS: 43 QRSD: 156 T: -83 QT: 390 QTc: 462 Interpretive Statements Atrial fibrillation Ventricular premature complex Right bundle branch block Baseline wander in lead(s) V1,V2,V6 Compared to ECG 03/09/2019 12:28:03 Electronically Signed On 04-06-2019 16:05:40 [employer] by Chris Landis [email or web address] <ELECTRONICALLY SIGNED> By: Chris Landis MD 04/06/19 1605 121 11 Chris Landis MD /ORAL
== END 2019-04-04 14:30 | disposition left against medical advice (07) ==
LOC: ER 11:19
PROVIDERS: Physician Assistant
DX: D64.9 Anemia, unspecified (principal); R60.0 Localized edema; R06.00 Dyspnea, unspecified; R79.89 Other specified abnormal findings of blood chemistry; R79.0 Abnormal level of blood mineral; J44.9 Chronic obstructive pulmonary disease, unspecified; I12.9 Hypertensive chronic kidney disease with stage 1 through stage 4 chronic kidney disease, or unspecified chronic kidney disease; E11.22 Type 2 diabetes mellitus with diabetic chronic kidney disease; N18.4 Chronic kidney disease, stage 4 (severe); E78.00 Pure hypercholesterolemia, unspecified; E03.9 Hypothyroidism, unspecified; M19.90 Unspecified osteoarthritis, unspecified site; I48.91 Unspecified atrial fibrillation; K21.9 Gastro-esophageal reflux disease without esophagitis; Z95.1 Presence of aortocoronary bypass graft; Z79.4 Long term (current) use of insulin; Z88.0 Allergy status to penicillin; Z88.6 Allergy status to analgesic agent; Z88.8 Allergy status to other drugs, medicaments and biological substances; Z87.891 Personal history of nicotine dependence

== ENCOUNTER 2019-04-12 21:01 | Inpatient (IN) | payer OTHER ==
[~2019-04-12] VITALS: Ht 175.3 cm; Wt 79.8 kg
--- NOTE | ~2019-04-12 | HC ---
[facility] [place] [place] [address] CONSULTATION Name: DARRICK GONZALEZ Room #: 462-P ADM IN M.R.#: [id number] Admission: 04/13/19 Attend Phys: Corbin Mckeon Discharge: Date of : 38 Report #: [id number] THIS REPORT FOR: //name// CC: Corbin Blockhan Livan DATE OF SERVICE: 04/22/2019 CARDIOLOGY CONSULTATION HISTORY OF PRESENT ILLNESS: An 78-year-old male well known to myself. He has been hospitalized a week ago, now came in with some progressive shortness of breath, fluid retention, volume overload. Tried to be treated initially for 3-4 days with doubling on the Demadex, progressively short of breath on the day prior to 's Kira and admitted. Son is telling me he has been diuresed 50 pounds. Allegedly, he has been diuresed aggressively and was ready for discharge a couple of days ago, but then developed diffuse abdominal pain and some slight mental status changes here. His ejection fraction looks to be normal, but he has got moderately severe aortic insufficiency and moderately severe pulmonary hypertension with a PA pressure in the 70s. This has worsened since my last echo. The ejection fraction slightly improved. My last echo in the office was 10/2017. He has underlying pacemaker. He has had prior bypass surgery in 2007. He has had stents to the SVG, to the RCA and there was a REYNOSO to an LAD. He has had a history of long noncompliance with dietary and fluid, water, and sodium intake. Also, some chronic anemia, but had been at least for the most part compliant with his medications. HOME MEDICATIONS: Allopurinol, Flonase, insulin, levothyroxine, melatonin, rosuvastatin 20, Demadex which had been doubled up, Flomax, Vascepa, and Xarelto. PAST MEDICAL HISTORY: Positive for coronary artery disease, prior CABG, chronic kidney disease, atrial flutter, sick sinus, permanent pacemaker, berqg-uh-oepilfx renal failure, chronic kidney disease, diabetes, hypertension, hypercholesterolemia, some memory issues, sleep apnea and mild LV dysfunction by history with moderate valvular insufficiency. SOCIAL HISTORY: He is . He does have children that are actively involved in his care. He has been for the most part relatively independent. He quit tobacco 10 years ago. No alcohol or drug use. ALLERGIES: DONAZEPRIL, LORAZEPAM, ELAVIL, GABAPENTIN, and TRAMADOL. REVIEW OF SYSTEMS: He is not really answering any current questions. He is somewhat very somnolent, but has complaints of abdominal pain. [address] [address] CONSULTATION Name: DARRICK GONZALEZ Room #: 462-P [facility] IN M.R.#: [id number] Admission: 04/13/19 Attend Phys: Corbin Mckeon Discharge: Date of : 38 Report #: [id number] FAMILY HISTORY: Negative for premature coronary artery disease. LABORATORY DATA: Creatinine up to 3.4, baseline is 2. Hemoglobin is 10 and potassium 3.7. PHYSICAL EXAMINATION: GENERAL: He is in some mild discomfort abdominal cheng but we will respond. He is fairly somnolent. VITAL SIGNS: Blood pressure 150/90s, pulse 90s. HEENT: Eyes reveal xanthelasmas. Pharynx is dry. His lips are dry. Mucous membranes are dry. NECK: Shows preserved upstrokes. LUNGS: Clear with prolonged expiratory phase. CARDIOVASCULAR: Regular rate and rhythm, S1, S2. ABDOMEN: Soft, but it is diffusely tender and some questionable rebound diffusely throughout, not localized. EXTREMITIES: Reveal significant venous stasis changes and no significant skin breakdown. I cannot palpate distal pulses. NEUROLOGIC: Intact, although he is somewhat slow to respond. MUSCULOSKELETAL: No focal findings. ASSESSMENT: 1. Acute on chronic diastolic dysfunction, now azotemic. 2. Acute on chronic kidney disease, probably due to some component of over diuresis. 3. Abdominal pain of unclear significance, currently being worked up with ultrasound and CT. 4. Coronary artery disease with history of coronary artery bypass graft. 5. Moderately severe aortic insufficiency. 6. Moderately severe pulmonary hypertension, PA pressure in the 70s. 7. Chronic obstructive pulmonary disease. 8. Dietary indiscretion. 9. Diabetes. RECOMMENDATIONS AND PLAN: We will discuss with Renal. Obviously holding on diuresis. May need to have some gentle fluid returned to the patient. I have discussed this with his son. Undergoing further workup for this abdominal pain. We will follow with you. By: 0953 2300 /nt
[~2019-04-12 21:01] MED LIST changes: +IRON160 M1 PO; +PREDNISOLONE 5 M5 M1 PO; +RAYOS5 MG PO
[2019-04-12 21:08] VITALS: BP 123/58
[2019-04-12 23:22] LABS: ABSOLUTE NEUTROPHILS 4.1 thou/uL (1.4-8.2); BASOPHILS 0.4 % (0.0-2.0); HEMATOCRIT 23.5 % (42.0-52.0); HEMOGLOBIN 7.6 gm/dL (14.0-18.0); LYMPHOCYTES 2.6 % (24.0-44.0); MCH 36.4 pg (26.0-34.0); MCHC 32.5 g/dL (28.0-37.0); MCV 112.1 fL (80.0-100.0); MONOCYTES 2.5 % (1.0-8.0); PLATELET COUNT 80 thou/uL (150-400); POLYS 94.5 % (36.0-66.0); RDW 16.1 % (10.5-14.5); WBC 4.4 thou/uL (4.0-11.0)
[2019-04-12] MEDS ORDERED: ALPRAZOLAM 0.0.25 M1 PO (23:39)
[2019-04-12 23:42] LABS: CALCIUM 8.2 mg/dL (8.5-10.1); CREATININE 2.6 mg/dL (0.7-1.3); POTASSIUM 4.1 mmol/L (3.5-5.1)
[2019-04-12 23:51] LABS: TROPONIN-I 0.11 ng/mL (<0.06)
[2019-04-13] VITALS (7 sets, daily range): BP systolic 109–142; BP diastolic 35–63
[2019-04-13 00:03] LABS: PLATELET ESTIMATE DECREASED
[2019-04-13 00:04] LABS: ANISOCYTOSIS 1+; MACROCYTES 3+; POLYCHROMASIA OCCASIONAL
[2019-04-13] MEDS ORDERED: LANTUS SUBQ (04:20)
--- NOTE | 2019-04-13 15:02 | 2DMMODE ---
[facility] [address] [place] [address] 2 D/M-MODE ECHOCARDIOGRAM Name: DARRICK GONZALEZ Gissel Room #: 210-P [facility] IN ..#: [id number] Admission: 04/13/19 Attend Phys: Viet Hyman, Discharge: Date of : 38 Report #: [id number] THIS REPORT FOR: //name// APPROVED REPORT Study performed: 04/13/2019 12:41:06 EXAM: Limited 2D, Doppler, and color-flow Echocardiogram Patient Location: Bedside Room #: 210 Status: routine BSA: 2.11 HR: 90 bpm BP: 138/49 mmHg Rhythm: Atrial Fibrillation Other Information Study Quality: Adequate Indications Short of breath. Hx: Pacemaker, CHF, CABG, COPD, HTN, HLP, DM. Aortic Valve AoV Peak Radames.: 1.59 m/s AO Peak Gr.: 11.63 mmHg Tricuspid Valve TR Peak Radames.: 3.80 m/s RAP Estimate: 15.00 mmHg TR Peak Gr.: 57.00 mmHg PA Pressure: 72.00 mmHg Left Ventricle The left ventricle is normal size. Mild concentric left ventricular hypertrophy. Left ventricular systolic function is normal. LVEF is 55%. This study is not technically sufficient to allow evaluation of the LV diastolic function. Right Ventricle Right ventricle is dilated. Right ventricle is mildly hypokinetic. Pacemaker lead is present in the right ventricle. Atria Left atrium is dilated. Right atrium is dilated. Aortic Valve [facility] [address] [place] [address] 2 D/M-MODE ECHOCARDIOGRAM Name: DARRICK GONZALEZ Room #: 210-P ADM IN M.R.#: [id number] Admission: 04/13/19 Attend Phys: Viet Hyman, Discharge: Date of : 38 Report #: [id number] The aortic valve leaflets are moderately calcified. Moderate to severe aortic regurgitation There is no aortic valvular stenosis. Mitral Valve Mild mitral annular calcification. Moderate to moderately severe mitral regurgitation. Tricuspid Valve The tricuspid valve is normal in structure. Severe tricuspid regurgitation. Severe pulmonary hypertension with an estimated PAP of 70-75mmHg. Great Vessels IVC is dilated and collapses <50% with inspiration. Pericardium There is no pericardial effusion. <Conclusion> Left ventricular systolic function is normal. LVEF is 55%. Right ventricle is dilated. Both atria are dilated. The aortic valve leaflets are moderately calcified. Moderate to severe aortic regurgitation Mild mitral annular calcification. Moderate to moderately severe mitral regurgitation. Severe tricuspid regurgitation. Pacer leads noted. Severe pulmonary hypertension with an estimated pulmonary artery pressure of 70-75mmHg. There is no pericardial effusion. <ELECTRONICALLY SIGNED> By: Ace Arnett MD, [facility] 04/13/19 1501 150 150 Ace Arnett MD, FACC /INF
[2019-04-14 08:00] VITALS: BP 128/56
--- NOTE | 2019-04-14 09:51 | EKG ---
[address] [place] [address] ELECTROCARDIOGRAM REPORT Name: DARRICK GONZALEZ Room #: 210-P ADM IN M.R.#: [id number] Admission: 04/13/19 Attend Phys: Corbin Mckeon Discharge: Date of : 38 Report #: [id number] THIS REPORT FOR: //name// [facility] ED Test Date: 2019-04-12 Test Time: 21:35:45 Pat Name: DARRICK GONZALEZ Department: Room: 210 Gender: M Banking Paralegal: RICH : 1940 Requested By: German Carlson Order Number: [id number] MD: Ace Arnett Measurements Intervals [place] Rate: 88 P: [place]: QRS: 55 QRSD: 155 T: 253 QT: 402 QTc: 487 Interpretive Statements Atrial fibrillation Right bundle branch block Repol abnrm suggests ischemia, lateral leads Compared to ECG 04/04/2019 12:12:05 Ventricular pacing is no longer present Electronically Signed On 04-14-2019 9:51:21 [employer] by Ace Arnett [email or web address] <ELECTRONICALLY SIGNED> By: Ace Arnett MD, [facility] 04/14/19 0951 34 34 Ace Arnett MD, [facility] /EPI
[2019-04-14 12:00] VITALS: BP 135/59
[2019-04-14 13:58] LABS: ALBUMIN 2.8 g/dL (3.4-5.0); CALCIUM 8.7 mg/dL (8.5-10.1); CREATININE 2.3 mg/dL (0.7-1.3); PHOSPHORUS 3.1 mg/dL (2.5-4.9); POTASSIUM 4.4 mmol/L (3.5-5.1)
[2019-04-14 16:37] VITALS: BP 115/53
[2019-04-14 20:23] VITALS: BP 138/4
[2019-04-15 05:28] VITALS: BP 142/41
[2019-04-15 08:30] VITALS: BP 129/58
[2019-04-15 09:06] LABS: HEMATOCRIT 27.7 % (42.0-52.0); MCH 36.3 pg (26.0-34.0); MCHC 32.4 g/dL (28.0-37.0); RBC 2.47 mil/uL (4.50-6.00); RDW 16.5 % (10.5-14.5); WBC 4.2 thou/uL (4.0-11.0)
[2019-04-15 09:28] LABS: ALBUMIN 3.1 g/dL (3.4-5.0); CALCIUM 9.7 mg/dL (8.5-10.1); CREATININE 2.1 mg/dL (0.7-1.3); PHOSPHORUS 3.7 mg/dL (2.5-4.9); POTASSIUM 4.1 mmol/L (3.5-5.1); TOTAL BILIRUBIN 1.7 mg/dL (<0.1-1.0); TOTAL PROTEIN 6.3 g/dL (6.4-8.2)
[2019-04-15 16:20] VITALS: BP 128/50
[2019-04-15 20:15] VITALS: BP 138/57
[2019-04-16 04:45] VITALS: BP 135/53
[2019-04-16 08:00] VITALS: BP 153/61
[2019-04-16 09:27] LABS: ALBUMIN 3.4 g/dL (3.4-5.0); CALCIUM 9.8 mg/dL (8.5-10.1); CREATININE 2.1 mg/dL (0.7-1.3); PHOSPHORUS 3.9 mg/dL (2.5-4.9); POTASSIUM 4.3 mmol/L (3.5-5.1)
[2019-04-16 12:00] VITALS: BP 123/53
[2019-04-16 16:00] VITALS: BP 128/52
[2019-04-16 19:24] VITALS: BP 130/59
[2019-04-17 03:28] VITALS: BP 133/46
[2019-04-17 07:30] VITALS: BP 124/50
[2019-04-17 09:41] LABS: ALBUMIN 3.3 g/dL (3.4-5.0); CALCIUM 9.9 mg/dL (8.5-10.1); CREATININE 2.3 mg/dL (0.7-1.3); PHOSPHORUS 2.9 mg/dL (2.5-4.9); POTASSIUM 4.9 mmol/L (3.5-5.1)
[2019-04-17 15:40] VITALS: BP 146/64
[2019-04-17 16:00] VITALS: BP 135/55
[2019-04-17 20:04] VITALS: BP 127/50
[2019-04-18 05:23] VITALS: BP 134/57
[2019-04-18 07:15] VITALS: BP 136/74
[2019-04-18 08:04] LABS: HEMATOCRIT 27.9 % (42.0-52.0); HEMOGLOBIN 9.3 gm/dL (14.0-18.0); MCH 35.7 pg (26.0-34.0); MCHC 33.3 g/dL (28.0-37.0); MCV 107.1 fL (80.0-100.0); PLATELET COUNT 107 thou/uL (150-400); RBC 2.61 mil/uL (4.50-6.00); RDW 16.5 % (10.5-14.5)
[2019-04-18 08:18] LABS: ALBUMIN 3.1 g/dL (3.4-5.0); CALCIUM 9.5 mg/dL (8.5-10.1); CREATININE 2.3 mg/dL (0.7-1.3); PHOSPHORUS 4.7 mg/dL (2.5-4.9); POTASSIUM 4.3 mmol/L (3.5-5.1)
[2019-04-18 09:44] LABS: ABSOLUTE NEUTROPHILS 3.3 thou/uL (1.4-8.2); ANISOCYTOSIS 1+; PLATELET ESTIMATE NORMAL
[2019-04-18 11:12] VITALS: BP 122/52
[2019-04-18 16:14] VITALS: BP 143/52
[2019-04-18 20:56] VITALS: BP 107/40
[2019-04-19] VITALS (7 sets, daily range): BP systolic 117–140; BP diastolic 44–83
[2019-04-19 08:26] LABS: ALBUMIN 3.2 g/dL (3.4-5.0); CALCIUM 9.7 mg/dL (8.5-10.1); CREATININE 2.6 mg/dL (0.7-1.3); PHOSPHORUS 4.2 mg/dL (2.5-4.9); POTASSIUM 4.7 mmol/L (3.5-5.1)
[2019-04-20 03:24] VITALS: BP 120/66
[2019-04-20 09:00] VITALS: BP 148/66
[2019-04-20] MEDS ORDERED: HUMALOG100 UNIT/1 SUBQ (13:37)
[2019-04-20] MEDS ORDERED: K-DUR10 MEQ PO (13:37)
[2019-04-20] MEDS ORDERED: LANTUS SUBQ ×2 (13:37→13:48)
[2019-04-20] MEDS ORDERED: PREDNISONE 20 M20 M1 PO (13:37)
[2019-04-20] MEDS ORDERED: DEMADEX20 MG PO (13:37)
[2019-04-20] MEDS ORDERED: METOLAZONE 5 MG5 MG PO (13:37)
[2019-04-20 19:15] VITALS: BP 122/57
[2019-04-21 08:04] VITALS: BP 128/58
[2019-04-21 16:12] LABS: HEMATOCRIT 39.2 % (42.0-52.0); MCH 34.8 pg (26.0-34.0); MCHC 33.1 g/dL (28.0-37.0); MCV 104.9 fL (80.0-100.0); RBC 3.74 mil/uL (4.50-6.00); RDW 16.3 % (10.5-14.5); WBC 7.1 thou/uL (4.0-11.0)
[2019-04-21 16:16] LABS: CALCIUM 9.4 mg/dL (8.5-10.1); CREATININE 3.4 mg/dL (0.7-1.3); POTASSIUM 3.7 mmol/L (3.5-5.1)
[2019-04-21 17:10] LABS: ALBUMIN 3.7 g/dL (3.4-5.0); DIRECT BILIRUBIN 0.6 mg/dL (<0.1-0.2); TOTAL BILIRUBIN 1.7 mg/dL (<0.1-1.0); TOTAL PROTEIN 7.3 g/dL (6.4-8.2)
[2019-04-21 17:38] LABS: URINE BILIRUBIN NEGATIVE (Negative); URINE BLOOD NEGATIVE (Negative); URINE CLARITY CLEAR; URINE COLOR YELLOW; URINE GLUCOSE-RANDOM* NEGATIVE (Negative); URINE KETONES NEGATIVE (Negative); URINE LEUKOCYTES NEGATIVE (Negative); URINE NITRITE NEGATIVE (Negative); URINE PROTEIN (DIPSTICK) TRACE (Negative); URINE SPECIFIC GRAVITY 1.015 (1.005-1.035)
[2019-04-21 19:22] VITALS: BP 131/63
[2019-04-22 08:35] VITALS: BP 154/98
[2019-04-22 13:39] LABS: CALCIUM 9.6 mg/dL (8.5-10.1); CREATININE 3.1 mg/dL (0.7-1.3); POTASSIUM 3.4 mmol/L (3.5-5.1)
[2019-04-22 13:53] LABS: INR 1.2; PROTIME 12.4 Seconds (9.3-11.4)
[2019-04-22 18:08] VITALS: BP 146/87
[2019-04-22 20:31] VITALS: BP 120/52
[2019-04-23 05:24] LABS: ABSOLUTE RETIC COUNT 0.1018 10^6/uL; HEMATOCRIT 33.8 % (42.0-52.0); HEMOGLOBIN 11.4 gm/dL (14.0-18.0); MCH 35.3 pg (26.0-34.0); MCHC 33.8 g/dL (28.0-37.0); MCV 104.4 fL (80.0-100.0); OBSERVED RETIC COUNT 3.14 % (0.6-2.6); RBC 3.24 mil/uL (4.50-6.00); RDW 16.5 % (10.5-14.5); WBC 6.4 thou/uL (4.0-11.0)
[2019-04-23 05:47] LABS: CALCIUM 8.7 mg/dL (8.5-10.1); CREATININE 2.7 mg/dL (0.7-1.3); PHOSPHORUS 4.1 mg/dL (2.5-4.9); POTASSIUM 4.3 mmol/L (3.5-5.1); TOTAL BILIRUBIN 1.9 mg/dL (<0.1-1.0)
[2019-04-23 08:07] VITALS: BP 123/55
[2019-04-23 09:55] LABS: BE(vivo) 5.8 mmol/L (-2 to +3); HCO3 28.7 mmol/L (22.0-26.0); PCO2 35.8 mmHg (35.0-45.0); PO2 89.6 mmHg (80.0-100.0); pH 7.522 (7.360-7.450); sO2 97.6 % (92.0-98.0)
[2019-04-23 15:59] VITALS: BP 118/68
[2019-04-23 19:34] VITALS: BP 127/49
[2019-04-24 07:51] VITALS: BP 117/60
[2019-04-24 13:20] LABS: CALCIUM 8.5 mg/dL (8.5-10.1); CREATININE 2.6 mg/dL (0.7-1.3); POTASSIUM 4.1 mmol/L (3.5-5.1)
[2019-04-24 15:23] VITALS: BP 135/57
[2019-04-24 19:27] VITALS: BP 135/60
[2019-04-24 20:19] VITALS: BP 164/88
[2019-04-25 08:25] VITALS: BP 138/56
[2019-04-25 17:18] VITALS: BP 144/54
[2019-04-25 20:20] VITALS: BP 128/62
[2019-04-26 08:00] VITALS: BP 139/56
[2019-04-26 15:00] VITALS: BP 128/53
[2019-04-26 19:17] VITALS: BP 114/55
[2019-04-27 08:04] VITALS: BP 121/54
[2019-04-27] MEDS ORDERED: LANTUS SUBQ (08:55)
[2019-04-27] MEDS ORDERED: MELATONIN5 M1 PO (08:55)
[2019-04-27] MEDS ORDERED: HUMALOG100 UNIT/1 SUBQ (08:55)
[2019-04-27] MEDS ORDERED: PROTONIX 20 MG20 MG PO (08:55)
[2019-04-27] MEDS ORDERED: PREDNISONE 20 M20 M1 PO (08:55)
[2019-04-27] MEDS ORDERED: ALLOPURINOL 10100 M1 PO (08:55)
[2019-04-27] MEDS ORDERED: CEPHALEXIN 250250 M1 PO (08:55)
[2019-04-27 10:55] LABS: CALCIUM 8.7 mg/dL (8.5-10.1); CREATININE 1.8 mg/dL (0.7-1.3); POTASSIUM 3.7 mmol/L (3.5-5.1)
[2019-04-27 15:07] VITALS: BP 128/56
== END 2019-04-27 15:35 | DRG 291 ==
LOC: ER 21:01 → 2N 04-13 00:36 → EROBS 04-13 00:36 → 2N 04-13 02:00 → 4W 04-20 05:44
PROVIDERS: Emergency Medicine; Hospitalist; Internal Medicine Hematology & Oncology; Internal Medicine Nephrology; Nurse Practitioner; Nurse Practitioner Adult Health; ADMIT Hospitalist
PROC: 5A09357 Assistance with Respiratory Ventilation, Less than 24 Consecutive Hours, Continuous Positive Airway Pressure (ICD-10-PCS; principal; 2019-04-14)
PROC: 5A09357 Assistance with Respiratory Ventilation, Less than 24 Consecutive Hours, Continuous Positive Airway Pressure (ICD-10-PCS; 2019-04-15)
PROC: 5A09357 Assistance with Respiratory Ventilation, Less than 24 Consecutive Hours, Continuous Positive Airway Pressure (ICD-10-PCS; 2019-04-17)
PROC: 5A09357 Assistance with Respiratory Ventilation, Less than 24 Consecutive Hours, Continuous Positive Airway Pressure (ICD-10-PCS; 2019-04-18)
PROC: 5A09357 Assistance with Respiratory Ventilation, Less than 24 Consecutive Hours, Continuous Positive Airway Pressure (ICD-10-PCS; 2019-04-21)
PROC: 5A09357 Assistance with Respiratory Ventilation, Less than 24 Consecutive Hours, Continuous Positive Airway Pressure (ICD-10-PCS; 2019-04-22)
PROC: 5A09357 Assistance with Respiratory Ventilation, Less than 24 Consecutive Hours, Continuous Positive Airway Pressure (ICD-10-PCS; 2019-04-23)
PROC: 5A09357 Assistance with Respiratory Ventilation, Less than 24 Consecutive Hours, Continuous Positive Airway Pressure (ICD-10-PCS; 2019-04-26)
PROC: 5A09357 Assistance with Respiratory Ventilation, Less than 24 Consecutive Hours, Continuous Positive Airway Pressure (ICD-10-PCS; 2019-04-27)
DX: I13.0 Hypertensive heart and chronic kidney disease with heart failure and stage 1 through stage 4 chronic kidney disease, or unspecified chronic kidney disease (principal); I50.23 Acute on chronic systolic (congestive) heart failure; G93.41 Metabolic encephalopathy; N17.9 Acute kidney failure, unspecified; I48.20 Chronic atrial fibrillation, unspecified; D58.9 Hereditary hemolytic anemia, unspecified; N18.4 Chronic kidney disease, stage 4 (severe); M19.90 Unspecified osteoarthritis, unspecified site; J44.9 Chronic obstructive pulmonary disease, unspecified; K21.9 Gastro-esophageal reflux disease without esophagitis; M10.9 Gout, unspecified; K44.9 Diaphragmatic hernia without obstruction or gangrene; E11.22 Type 2 diabetes mellitus with diabetic chronic kidney disease; E78.00 Pure hypercholesterolemia, unspecified; K74.60 Unspecified cirrhosis of liver; E03.9 Hypothyroidism, unspecified; I34.0 Nonrheumatic mitral (valve) insufficiency; I25.5 Ischemic cardiomyopathy; I07.1 Rheumatic tricuspid insufficiency; I27.20 Pulmonary hypertension, unspecified; G47.33 Obstructive sleep apnea (adult) (pediatric); F03.90 Unspecified dementia, unspecified severity, without behavioral disturbance, psychotic disturbance, mood disturbance, and anxiety; R16.2 Hepatomegaly with splenomegaly, not elsewhere classified; B19.20 Unspecified viral hepatitis C without hepatic coma; I49.5 Sick sinus syndrome; D46.9 Myelodysplastic syndrome, unspecified; E11.51 Type 2 diabetes mellitus with diabetic peripheral angiopathy without gangrene; N40.0 Benign prostatic hyperplasia without lower urinary tract symptoms; E78.5 Hyperlipidemia, unspecified; E80.6 Other disorders of bilirubin metabolism; K76.9 Liver disease, unspecified; E87.6 Hypokalemia; I35.1 Nonrheumatic aortic (valve) insufficiency; Z82.49 Family history of ischemic heart disease and other diseases of the circulatory system; Z79.01 Long term (current) use of anticoagulants; Z79.4 Long term (current) use of insulin; Z87.11 Personal history of peptic ulcer disease; Z95.1 Presence of aortocoronary bypass graft; Z95.820 Peripheral vascular angioplasty status with implants and grafts; Z95.0 Presence of cardiac pacemaker; Z90.49 Acquired absence of other specified parts of digestive tract; Z79.899 Other long term (current) drug therapy; Z88.0 Allergy status to penicillin; Z88.8 Allergy status to other drugs, medicaments and biological substances; Z87.891 Personal history of nicotine dependence; Z28.21 Immunization not carried out because of patient refusal
CPT/HCPCS: 10047; 10081

== ENCOUNTER → 2019-05-19 | Outpatient (CLI) | payer OTHER ==
[~2019-05-19] MED LIST changes: +ALLOPURINOL 10100 M1 PO; +ALPRAZOLAM 0.0.25 M1 PO; +CEPHALEXIN 250250 M1 PO; +K-DUR10 MEQ PO; +METOLAZONE 5 MG5 MG PO; +PROTONIX 20 MG20 MG PO
== END ==
LOC: SJCVC 11:19
DX: Z51.81 Encounter for therapeutic drug level monitoring (principal); Z79.01 Long term (current) use of anticoagulants

== ENCOUNTER → 2019-06-29 | Outpatient (CLI) | payer OTHER | LOC: SJCVCIMAG 12:10 | DX: R94.31 Abnormal electrocardiogram [ECG] [EKG] (principal); I45.10 Unspecified right bundle-branch block; E11.22 Type 2 diabetes mellitus with diabetic chronic kidney disease; I13.10 Hypertensive heart and chronic kidney disease without heart failure, with stage 1 through stage 4 chronic kidney disease, or unspecified chronic kidney disease; I25.89 Other forms of chronic ischemic heart disease; N18.4 Chronic kidney disease, stage 4 (severe); R00.1 Bradycardia, unspecified; I25.10 Atherosclerotic heart disease of native coronary artery without angina pectoris; E11.51 Type 2 diabetes mellitus with diabetic peripheral angiopathy without gangrene; I48.21 Permanent atrial fibrillation; E78.00 Pure hypercholesterolemia, unspecified; I27.20 Pulmonary hypertension, unspecified; G47.33 Obstructive sleep apnea (adult) (pediatric); R60.9 Edema, unspecified; D68.59 Other primary thrombophilia; Z95.5 Presence of coronary angioplasty implant and graft; Z95.0 Presence of cardiac pacemaker; Z87.891 Personal history of nicotine dependence; Z79.4 Long term (current) use of insulin; Z79.899 Other long term (current) drug therapy; Z88.8 Allergy status to other drugs, medicaments and biological substances ==

== ENCOUNTER → 2020-01-11 | Outpatient (CLI) | payer OTHER | LOC: SJCVC 15:00 | PROVIDERS: ATTEND Internal Medicine Cardiovascular Disease | DX: Z45.018 Encounter for adjustment and management of other part of cardiac pacemaker (principal); I49.5 Sick sinus syndrome; I25.10 Atherosclerotic heart disease of native coronary artery without angina pectoris; E78.00 Pure hypercholesterolemia, unspecified; I73.9 Peripheral vascular disease, unspecified; E11.9 Type 2 diabetes mellitus without complications; D68.59 Other primary thrombophilia; I27.20 Pulmonary hypertension, unspecified; Z95.0 Presence of cardiac pacemaker; Z95.820 Peripheral vascular angioplasty status with implants and grafts; Z79.899 Other long term (current) drug therapy ==

== ENCOUNTER → 2020-06-10 | Outpatient (CLI) | payer OTHER | LOC: HYPER 09:32 | PROVIDERS: ATTEND Emergency Medicine Emergency Medical Services | DX: S51.811A Laceration without foreign body of right forearm, initial encounter (principal); E11.51 Type 2 diabetes mellitus with diabetic peripheral angiopathy without gangrene; E11.22 Type 2 diabetes mellitus with diabetic chronic kidney disease; I13.0 Hypertensive heart and chronic kidney disease with heart failure and stage 1 through stage 4 chronic kidney disease, or unspecified chronic kidney disease; N18.9 Chronic kidney disease, unspecified; I50.9 Heart failure, unspecified; I25.10 Atherosclerotic heart disease of native coronary artery without angina pectoris; I48.91 Unspecified atrial fibrillation; E78.5 Hyperlipidemia, unspecified; E03.9 Hypothyroidism, unspecified; R60.0 Localized edema; I27.20 Pulmonary hypertension, unspecified; G47.30 Sleep apnea, unspecified; J44.9 Chronic obstructive pulmonary disease, unspecified; Z95.818 Presence of other cardiac implants and grafts; Z79.4 Long term (current) use of insulin; Z95.0 Presence of cardiac pacemaker; Z87.891 Personal history of nicotine dependence; W19.XXXA Unspecified fall, initial encounter; Y93.89 Activity, other specified; Y92.89 Other specified places as the place of occurrence of the external cause; Y99.8 Other external cause status ==

== ENCOUNTER → 2020-06-24 | Outpatient (CLI) | payer OTHER | LOC: HYPER 08:40 | PROVIDERS: ATTEND Emergency Medicine Emergency Medical Services | DX: S51.811D Laceration without foreign body of right forearm, subsequent encounter (principal); E11.40 Type 2 diabetes mellitus with diabetic neuropathy, unspecified; E11.51 Type 2 diabetes mellitus with diabetic peripheral angiopathy without gangrene; R26.9 Unspecified abnormalities of gait and mobility; J44.9 Chronic obstructive pulmonary disease, unspecified; I48.91 Unspecified atrial fibrillation; I25.10 Atherosclerotic heart disease of native coronary artery without angina pectoris; E11.22 Type 2 diabetes mellitus with diabetic chronic kidney disease; I13.0 Hypertensive heart and chronic kidney disease with heart failure and stage 1 through stage 4 chronic kidney disease, or unspecified chronic kidney disease; I50.9 Heart failure, unspecified; N18.9 Chronic kidney disease, unspecified; E78.5 Hyperlipidemia, unspecified; I49.5 Sick sinus syndrome; E03.9 Hypothyroidism, unspecified; I27.20 Pulmonary hypertension, unspecified; G47.30 Sleep apnea, unspecified; F01.50 Vascular dementia, unspecified severity, without behavioral disturbance, psychotic disturbance, mood disturbance, and anxiety; Z79.899 Other long term (current) drug therapy; Z95.828 Presence of other vascular implants and grafts; Z87.891 Personal history of nicotine dependence; Z95.1 Presence of aortocoronary bypass graft; W01.198D Fall on same level from slipping, tripping and stumbling with subsequent striking against other object, subsequent encounter ==

== ENCOUNTER → 2020-07-12 | Outpatient (CLI) | payer OTHER | LOC: SJCVC 13:16 | PROVIDERS: ATTEND Internal Medicine Cardiovascular Disease | DX: I25.10 Atherosclerotic heart disease of native coronary artery without angina pectoris (principal); E78.00 Pure hypercholesterolemia, unspecified; I49.5 Sick sinus syndrome; I48.92 Unspecified atrial flutter; I13.0 Hypertensive heart and chronic kidney disease with heart failure and stage 1 through stage 4 chronic kidney disease, or unspecified chronic kidney disease; I50.33 Acute on chronic diastolic (congestive) heart failure; E11.22 Type 2 diabetes mellitus with diabetic chronic kidney disease; N18.4 Chronic kidney disease, stage 4 (severe); I27.20 Pulmonary hypertension, unspecified; D68.59 Other primary thrombophilia; G47.33 Obstructive sleep apnea (adult) (pediatric); I73.9 Peripheral vascular disease, unspecified; Z95.820 Peripheral vascular angioplasty status with implants and grafts; Z95.0 Presence of cardiac pacemaker; Z87.891 Personal history of nicotine dependence; Z79.4 Long term (current) use of insulin; Z79.899 Other long term (current) drug therapy; Z88.0 Allergy status to penicillin; Z88.8 Allergy status to other drugs, medicaments and biological substances ==

== ENCOUNTER 2020-09-27 18:31 | Inpatient (IN) | payer OTHER ==
[~2020-09-27] VITALS: Ht 175.3 cm; Wt 83.9 kg
--- NOTE | ~2020-09-27 | HC ---
[facility] [place] [address] CONSULTATION Name: DARRICK GONZALEZ Room #: 446-P ADM IN M.R.#: [id number] Admission: 09/27/20 Attend Phys: Jerrod Bernstein MD Discharge: Date of : 38 Report #: [id number] THIS REPORT FOR: cc: Teddy Licona MD, Jonathan MD Al-Absi,Alfred Norwood MD ~ DOC #: [id number] Alfred Luis MD REASON FOR CONSULTATION: Elevated creatinine. REASON FOR PRESENTATION: Brought by his family for mental status changes. Unfortunately, the patient is not able to provide me with any history. He is refusing all kind of medical care. The patient is an 80-year-old with extensive past medical history including and not limited to chronic kidney disease. Baseline creatinine is around 2.5; however, this had been progressing given the lack of medical care. The patient had been refusing to go to his appointments. He presented with fever, altered mental status. He was admitted to further evaluate him. He was found to have a BUN of 93 and a creatinine of 3.1. I was consulted to manage his acute kidney injury. The patient used to be chronic kidney disease of Dr. Palomino; however, as stated above, the patient has not been coming to his appointments. PAST MEDICAL HISTORY: Extensive and includes the followin. Chronic kidney disease. 2. Recurrent kidney stones. 3. Peptic ulcer disease. 4. Coronary artery disease. 5. Peripheral vascular disease. 6. Atrial fibrillation. 7. Status post pacemaker. 8. Cardiomyopathy. 9. Aortic regurgitation. 10. Pulmonary hypertension. ALLERGIES: LISTED PENICILLIN, TRAMADOL AND LORAZEPAM. FAMILY HISTORY: Unobtainable given the patient's current mental status. REVIEW OF SYSTEMS: Unobtainable given the patient's current mental status. SOCIAL HISTORY: Apparently, he was brought by his family members. No other details are available. PHYSICAL EXAMINATION: GENERAL: Confused refusing to interact and converse, asking to leave him alone. [facility] [address] [address] CONSULTATION Name: DARRICK GONZALEZ Gissel Room #: 446-[facility] IN M.R.#: [id number] Admission: 09/27/20 Attend Phys: Jerrod Bernstein MD Discharge: Date of : 38 Report #: [id number] VITAL SIGNS: Temperature 36.7, pulse rate 84, respiratory rate is 18, blood pressure is 128/63. NECK: No jugular venous distention. CHEST: Decreased air entry bilaterally. HEART: No rubs detected. ABDOMEN: Soft, nontender. EXTREMITIES: Lower extremities, no edema. IMPRESSION AND PLAN: 1. Acute kidney injury. 2. Chronic kidney disease with a baseline creatinine of around 2.5. 3. Lack of medical care. 4. Aortic regurgitation. 5. Status post pacemaker insertion. 6. Hypokalemia. 7. Unfortunately, the patient had been extremely noncompliant with his medical care. Palliative and comfort care seems very reasonable. This was discussed with his family members in the past; however, they declined. At this point, from the renal side, continue to hold his diuretics. His BUN and creatinine are improving with the boluses of IV fluid. 8. Rebolus with IV fluid. 9. Avoid aggressive diuresis. 10. No further renal recommendations. I will sign off. Alfred Luis MD AIA/YANELY By: 0641 [id number] Alfred Luis MD /nt
[2020-09-27 18:32] VITALS: BP 126/48
[2020-09-27 19:13] LABS: ABSOLUTE NEUTROPHILS 9.3 thou/uL (1.4-8.2); BASOPHILS 0.2 % (0.0-2.0); EOSINOPHILS 0.1 % (0.0-3.0); HEMATOCRIT 28.4 % (42.0-52.0); HEMOGLOBIN 9.5 gm/dL (14.0-18.0); LYMPHOCYTES 12.6 % (24.0-44.0); MCH 30.8 pg (26.0-34.0); MCHC 33.4 g/dL (28.0-37.0); MCV 92.1 fL (80.0-100.0); MONOCYTES 5.5 % (1.0-8.0); PLATELET COUNT 167 thou/uL (150-400); POLYS 81.6 % (36.0-66.0); RBC 3.08 mil/uL (4.50-6.00); RDW 16.3 % (10.5-14.5); WBC 11.4 thou/uL (4.0-11.0)
[2020-09-27 19:22] LABS: URINE BILIRUBIN NEGATIVE (Negative); URINE BLOOD 1+ (Negative); URINE CLARITY CLEAR; URINE COLOR YELLOW; URINE GLUCOSE-RANDOM* NEGATIVE (Negative); URINE KETONES NEGATIVE (Negative); URINE LEUKOCYTES-REFLEX TRACE (Negative); URINE NITRITE-REFLEX NEGATIVE (Negative); URINE PROTEIN (DIPSTICK) 1+ (Negative); URINE UROBILINOGEN 0.2 E.U./dl (0.2-1.0)
[2020-09-27 19:26] LABS: CALCIUM 9.8 mg/dL (8.5-10.1); CREATININE 3.1 mg/dL (0.7-1.3)
[2020-09-27 19:33] LABS: ALBUMIN 3.3 g/dL (3.4-5.0); DIRECT BILIRUBIN 0.2 mg/dL (<0.1-0.2); TOTAL BILIRUBIN 0.8 mg/dL (0.2-1.0); TOTAL PROTEIN 7.5 g/dL (6.4-8.2)
[2020-09-27 19:52] LABS: BACTERIA-REFLEX None Seen /HPF (None Seen); CRYSTALS None Seen /LPF (None Seen); SQUAMOUS None Seen /LPF (0-3); URINE RBC 3-10 Few /HPF (NONE SEEN); URINE WBC-REFLEX None Seen /HPF (0-5)
[2020-09-27 21:51] VITALS: BP 126/48
[2020-09-27 22:27] VITALS: BP 120/57
--- NOTE | 2020-09-28 05:00 | NUR ---
ASSUMED CARE OF PT FROM ED AT 2200HRS. PT IS ALERT BUT ONLY ORIENTED TO PERSON. PT IS CONFUSED AND CAN BE IMPULSIVE. PT WAS ORIENTED TO HIS ROOM AND THE UNIT. PT WAS UNABLE TO ANSWER ADMISSION RELATED QUESTIONS AND SIGN CONSENTS DUE TO CONFUSION. FALL PRECAUTION IN PLACE. PT HAD A TEMP OF 100.8 THIS SHIFT. TYLENOL GIVEN; ABX TREATMENT STARTED. CONDOM CATH PLACED DUE TO INCONTINENCE. PT REFUSED SCDS. PT WAS ABLE TO GET COMFORTABLE AND SLEEP PART OF THE SHIFT. WILL CONTINUE TO MONITOR.
[2020-09-28 05:17] VITALS: BP 98/44
[2020-09-28 05:30] LABS: HEMATOCRIT 24.9 % (42.0-52.0); HEMOGLOBIN 8.4 gm/dL (14.0-18.0); MCH 31.5 pg (26.0-34.0); MCHC 33.8 g/dL (28.0-37.0); MCV 93.2 fL (80.0-100.0); RBC 2.67 mil/uL (4.50-6.00); RDW 16.4 % (10.5-14.5); WBC 12.5 thou/uL (4.0-11.0)
[2020-09-28 05:59] LABS: CALCIUM 8.7 mg/dL (8.5-10.1); POTASSIUM 3.2 mmol/L (3.5-5.1)
[2020-09-28 08:13] VITALS: BP 149/103
[2020-09-28 16:00] VITALS: BP 123/44
--- NOTE | 2020-09-28 16:06 | NUR ---
Visited pt today, family at the bed side both are DPOA son and . 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 ) Son's run chores for both the pt and the that require driving (groceries, shopping). Pt and live in a split level home, 3 steps upon entering the home, the 6 steps both up and down. Side rails are all installed on all stairs. Bathroom are ADA ready as of date. Currently the pt uses a walker at home, last fall was 5 years ago. Pt has been completely vaccinated for COVID ([employer]). All information in the system is current and has not changed from the last admission as per son. [facility] was last used on 04/2019. Requesting that historic clothing and costume maker services be processed through the [facility], wanting 3 x a week for bathing and bedding changes d/t the being of age and has had challenges performing the tasks. Pt is a and is on full disability in the [facility] ( for life). Pt is admitted for sepsis, pna and hypokalemia.
--- NOTE | 2020-09-28 18:39 | NUR ---
ASSUMED CARE OF PT AT 0700 THIS MORNING. PT WAS ADMITTED FOR UTI AND AMS. PT IS A/OX2 AND FORGETFUL. HX OF DEMENTIA, SKIN INTACT W/D/ATR, ASSESSMENTS CHARTED AND OTHERWISE UNREMARKABLE. PT HAS A CONDOM CATH AND FORGETS THAT IT'S ATTACHED. IV INLEFT UPPER ARM SL. CALL LIGHT AND OTHER NEEDS ARE WITHIN REACH. MEDS AND TX GIVEN NEEDED AND SCHEDULED.
[2020-09-28 19:49] VITALS: BP 141/48
--- NOTE | 2020-09-29 07:52 | NUR ---
RECEIVED CARE OF THIS PATIENT AT 1900. PATIENT ORIENTED TO PERSON AND PLACE ONLY. PATIENT CALLED OUT EVERY FEW MINUTES TO URINATE. REFUSED TO USE URINAL, USED BSC A FEW TIMES. URINATED ABOUT 350CC ALL SHIFT. BLADDER DISTENDED. REFUSED TO HAVE A MOFFETT PLACED OR EVEN BE STRAIGHT CATH. REFUSED A CONDOM CATH WELL. PATIENT HAS CUSSED OUT EVERY NURSE AND FOOD SCIENCE PROFESSOR THIS SHIFT. CAN BE VERY HATEFUL AND CALLING STAFF NAMES TO THANKING THEM AND BEING VERY SWEET. C/O PAIN IN R KNEE AND SAYING IT LOCKS UP ON HIM. LID[place]AIN PATCH PLACED ON IT. C/O PAIN IN THE NECK. PAIN MED GIVEN. HAS NOT SLEPT THIS SHIFT.
[2020-09-29 07:56] VITALS: BP 120/55
[2020-09-29 12:11] LABS: URINE BILIRUBIN NEGATIVE (Negative); URINE BLOOD 2+ (Negative); URINE CLARITY CLEAR; URINE COLOR YELLOW; URINE GLUCOSE-RANDOM* NEGATIVE (Negative); URINE KETONES NEGATIVE (Negative); URINE LEUKOCYTES 1+ (Negative); URINE NITRITE NEGATIVE (Negative); URINE PROTEIN (DIPSTICK) 2+ (Negative); URINE SPECIFIC GRAVITY 1.015 (1.005-1.035); URINE UROBILINOGEN 0.2 E.U./dl (0.2-1.0)
[2020-09-29 12:40] LABS: HYALINE CASTS 0-3 Few /LPF (None Seen); SQUAMOUS 0-3 Few /LPF (0-3)
[2020-09-29 12:41] LABS: URINE RBC 1-2 Rare /HPF (NONE SEEN); URINE WBC 6-15 Few /HPF (NONE SEEN)
[2020-09-29 12:42] LABS: BACTERIA 1-9 Few /HPF (None Seen); CRYSTALS None Seen /LPF (None Seen)
--- NOTE | 2020-09-29 14:24 | 2DMMODE ---
[facility] [place] [address] 2 D/M-MODE ECHOCARDIOGRAM Name: DARRICK GONZALEZ Room #: 446-P ADM IN M.R.#: [id number] Admission: 09/27/20 Attend Phys: Jerrod Bernstein MD Discharge: Date of : 36 Report #: [id number] THIS REPORT FOR: cc: Teddy Licona MD, Jonathan MD Park, Jin S. MD ~ APPROVED REPORT Study performed: 09/29/2020 13:36:04 EXAM: Comprehensive 2D, Doppler, and color-flow Echocardiogram Patient Location: Bedside Room #: 446 Status: routine BSA: 2.00 HR: 79 bpm BP: 120/55 mmHg Rhythm: regular Other Information Study Quality: Poor/very limited doppler Technically limited study due to no patient cooperation to position for images. Indications HX: of severe AI, MR. other history: CABG,COPD, PPM, AFIB, DM, HTN, PVD. 2D Dimensions IVSd: 12.68 (7-11mm) LVOT Diam: 20.94 (18-24mm) LVDd: 50.30 mm PWd: 12.41 (7-11mm) LVDs: 33.24 (25-40mm) Left Atrium: 49.11 (27-40mm) Aortic Root: 31.52 mm Tricuspid Valve TR Peak Radames.: 3.70 m/s TR Peak Gr.: 55.00 mmHg Left Ventricle Limited views, no apical views obtained. The left ventricle is normal size. Mild concentric left ventricular hypertrophy. Left ventricular systolic function is normal. LVEF is 60-65%. Unable to [facility] [address] [place] [address] 2 D/M-MODE ECHOCARDIOGRAM Name: DARRICK GONZALEZ Room #: 446-P [facility] IN [facility].#: [id number] Admission: 09/27/20 Attend Phys: Marlo Zuniga Discharge: Date of : 38 Report #: [id number] perform doppler to assess diastolic function. Right Ventricle Function appears normal. Pacemaker lead is present in the right ventricle. Atria Both atria appear dilated. Aortic Valve Aortic valve is moderately calcified. Mild to moderate aortic regurgitation. Unable to perform doppler assessment for aortic stenosis. Mitral Valve The mitral valve is normal in structure; thickened and calcified. Mild mitral regurgitation. Tricuspid Valve The tricuspid valve is normal in structure. Moderate tricuspid regurgitation. Estiamted PAP is 55mmHg plus the right atrial pressure. Pulmonic Valve Pulmonic valve is not well visualized. Great Vessels The aortic root is normal in size. <Conclusion> Limited views, no apical views obtained. The left ventricle is normal size. Mild concentric left ventricular hypertrophy. Left ventricular systolic function is normal. Pacemaker lead is present in the right ventricle. Both atria appear dilated. Mild to moderate aortic regurgitation. Unable to perform doppler assessment for aortic stenosis. Mild mitral regurgitation. Moderate tricuspid regurgitation. Estiamted PAP is 55mmHg plus the right atrial pressure. <ELECTRONICALLY SIGNED> By: Hammad Koehler MD 09/29/20 1424 1424 1424 Hammad Koehler MD /INF
--- NOTE | 2020-09-29 15:30 | NUR ---
ASSUMED PT CARE THIS AM. PT IS ALERT & ORIENTED X2 PERSON AND PLACE. PT HAS NO IV SITE. INFORMED DR THAT PT REMOVED AND REFUSED IV THIS AM AND CHANGED MEDICATION TO PO PER DR ORDERED. DID BLADDER SCAN THIS AM AND BLADDER WAS DISTENDED AND PT WAS VERY UNCOMFORTABLE. PT HAD US RENAL THIS AM. AWAITING FOR XRAY ON R KNEE. PT WAS WORKING WITH OCCUPATIONAL THERAPY THIS AFTERNOON. PT IS ACCUCHECK ACHS. PT HAS BEEN URINATED EVERY HOUR. SENT UA TO THE LAB. PT SON AT THE BEDSIDE. PT C/O OF PAIN AND GIVEN PAIN MEDICATION PER PT REQUEST. PT ON THE BED, BED ON THE LOWEST POSITION, SIDE RAILS UP, CALL LIGHT WITHIN REACH. WILL CONTINUE TO MONITOR PT. FOLLOW POC.
[2020-09-29 15:44] VITALS: BP 131/46
[2020-09-29 15:52] LABS: CALCIUM 8.9 mg/dL (8.5-10.1); CREATININE 2.9 mg/dL (0.7-1.3); POTASSIUM 4.5 mmol/L (3.5-5.1)
--- NOTE | 2020-09-29 16:04 | NUR ---
CM CONTACTED COLIN AT THE [facility] RELATED TO INITIATING REFERRAL FOR HOMEMAKEER REFERRAL THROUGH THEM. CM FOLLOWING REGARDING DC PLANNING.
[2020-09-29 19:36] VITALS: BP 128/63; BP 128/663
--- NOTE | 2020-09-30 03:16 | NUR ---
PT AOX4, RESPONDING TO ORIENTATION PROMPTS APPROPRIATELY. PT WITH NOTABLY FORGETFUL AND HARD OF HEARING. UPON SHIFT ASSESSMENT, PT DENIES PAIN, ASSESSED WITH FLACC OF 3 PT WITH GRIMACING, MOANING, AND TENSING. PT REPORTS SOB WITH EXERTION WHILE ON ROOM AIR. 2L O2 VIA NC APPLIED, RELIEF OBTAINED AT 3L. PT TOLERATING PO INTAKE OF FLUIDS AND REGULAR DIET WITHOUT ISSUE. PT WITHOUT NAUSEA OR EMESIS. PT AMBULATING WITH X1 ASSIST AND WALKER TO BATHROOM. PT NOTED TO HAVE FREQUENCY AND URGENCY. FREQUENT REPOSITIONING ENCOURAGED WHILE IN BED, PT NOTED TO SHIFT INDEPENDENTLY WHILE IN BED. SENSATION INTACT, CAPILLARY REFILL LESS THAN 3SEC, PERIPHERAL PULSES PALPABLE IN ALL EXTREMITIES. PT ENCOURAGED TO NOTIFY STAFF FOR ALL NEEDS, CALL LIGHT WITHIN REACH, BED ALARM ON, BED LOCKED IN LOWEST POSITION, ROOM REMAINS NEAR NURSES STATION, FREQUENT MONITORING WILL CONTINUE. THROUGHOUT SHIFT, PT NOTED TO BECOME INCREASINGLY RESTLESS AND IMPULSIVE REPORTING ONSET AND WORSENING PAIN IN RIGHT KNEE AND LEFT SIDE OF NECK. PT RECEIVING PRN PO APAP Q4HR WITHOUT RELIEF. ONCALL PASTE MAKER NOTIFIED, NO ORDERS RECEIVED, ADVISED TO PROVIDE WARM BLANKET. NONPHARMACOLOGICAL INTERVENTIONS NOT EFFECTIVE. CHIEF TRANSFER AND PUMPHOUSE OPERATOR AND ONCALL PASTE MAKER NOTIFIED, EMAR UPDATED. FREQUENT MONITORING WILL CONTINUE.
[2020-09-30 06:03] LABS: ABSOLUTE NEUTROPHILS 6.1 thou/uL (1.4-8.2); BASOPHILS 0.3 % (0.0-2.0); EOSINOPHILS 1.1 % (0.0-3.0); HEMATOCRIT 24.8 % (42.0-52.0); HEMOGLOBIN 8.3 gm/dL (14.0-18.0); LYMPHOCYTES 20.7 % (24.0-44.0); MCHC 33.7 g/dL (28.0-37.0); MCV 92.1 fL (80.0-100.0); MONOCYTES 4.7 % (1.0-8.0); PLATELET COUNT 173 thou/uL (150-400); POLYS 73.2 % (36.0-66.0); RBC 2.69 mil/uL (4.50-6.00); RDW 16.5 % (10.5-14.5); WBC 8.3 thou/uL (4.0-11.0)
[2020-09-30 07:50] VITALS: BP 128/48
--- NOTE | 2020-09-30 13:32 | NUR ---
BPCI letter and preferred provider list provided to patient chart, dario to see patient, lives in home setting
[2020-09-30 15:50] VITALS: BP 135/60
--- NOTE | 2020-09-30 19:38 | NUR ---
ASSUMED PT CARE THIS AM. PT AWAKE, FORGETFUL AND IMPULSIVE DURING THE SHIFT. PT HAS IV SITE ON L FA SALINE LOCKED AND INFUSED FLUID PER DR ORDERED. PT IS UP WITH ASSIST X1 WITH WALKER AND GAITBELT. PT IS ACCUCHECK ACHS. NOT GIVEN SCHEDULED HALOPERIDOL PER PT (DPOA) REQUEST. PT IS ON ROOM AIR. PT FAMILY AT THE BEDSIDE AND COMMUNICATED WITH DR. PT HAS BEEN CRYING AND YELLING AT TIMES. GIVEN MIRALAX AND SUPPOSITORY PER ORDERED AND REQUEST. PT STATED HE HAD BM BUT WAS NOT OBSERVED. PT TOLERATED DIET WELL DURING THE SHIFT. NO C/O OF NAUSEA AND VOMITING. PT ON THE BED, BED ON THE LOWEST POSITION, SIDE RAILS UP, CALL LIGHT WITHIN REACH. WILL CONTINUE TO MONITOR PT OFTEN. FOLLOW POC. ENDORSE NIGHT NURSE.
[2020-09-30 19:40] VITALS: BP 141/66
--- NOTE | 2020-10-01 05:38 | NUR ---
RECEIVED CARE OF THIS PATIENT AT 1900. PATIENT ALERT AND ORIENTED TO PERSON AND ONLY. UP WITH WALKER AND GATEBELT WITH ONE ASSIST TO BATHROOM. REFUSES URINAL AND BSC. IMPULSIVE AND TRIES TO GO TO BATHROOM BY SELF. CAN BE VERY AGGITATED. ACCUCHECK WAS 151, RECEIVED 3 UNITS REG INSULIN. C/O PAIN, MED GIVEN. SLEPT OFF AND ON DURING NIGHT.
[2020-10-01 07:55] VITALS: BP 106/44
[2020-10-01 09:22] LABS: CALCIUM 8.9 mg/dL (8.5-10.1); CREATININE 2.8 mg/dL (0.7-1.3)
[2020-10-01 16:15] VITALS: BP 143/64
--- NOTE | 2020-10-01 20:29 | NUR ---
Patient alert and orinted to person/place, on room air, up with sba with walker, patient will occasionally use call light appropriate, vitals signs stable, and afbreile. Call light with in reach, bed/chair alarm on, will continue to monitor.
[2020-10-02 08:05] VITALS: BP 119/49
--- NOTE | 2020-10-02 08:36 | NUR ---
PT AMBULATING TO BATHROOM WITH STANDBY ASSIST AND IS TOLERATING FAIR. DENIES PAIN. REMAINS IMPULSIVE. FREQUENT OBSERVATION.
--- NOTE | 2020-10-02 10:44 | NUR ---
Assumed care of pt at 0700. Pt alert but forgetful. Denies pain. SBA with walker and gait-belt. Possible d/c tomorrow. Family at bedside. Call light within reach. Fall precautions in place. Will continue to monitor.
[2020-10-02] MEDS ORDERED: HALOPERIDOL 1 MG1 MG PO (13:18)
[2020-10-02] MEDS ORDERED: STIMULANT LAXA1 EACH PO (13:18)
[2020-10-02] MEDS ORDERED: LACTULOSE20 GM/30 M PO (13:18)
[2020-10-02] MEDS ORDERED: CEFDINIR300 MG PO (13:18)
[2020-10-02] MEDS ORDERED: LIDOPATCH1 EACH TRANSDERM (13:18)
[2020-10-02 16:50] VITALS: BP 122/57
[2020-10-02 19:31] VITALS: BP 133/55
--- NOTE | 2020-10-03 00:37 | NUR ---
ASSUMED PT CARE AT 1900.PT ALERT/CONFUSED/IMPULSIVE AND FORGETFUL.PT C/O PAIN TO HIS L NECK,TYLENOL GIVEN.PT VERY RESLESS IN HIS ROOM.PT HAS URGENCY/FREQ. CONSTANTLY GOING TO THE BR TO VOID.PT VERBALLY ABUSIVE TO STAFF,REF CARE.PT NOT COMPLIANT WITH FALL PECAUTIONS,EDUCATION GIVEN.LIDOCAINE PATCH TO R KNEE.BRUISING TO HIS UPPER EXT.FALL PRECAUTIONS IN PLACE.
[2020-10-03 07:45] VITALS: BP 117/44
[2020-10-03 11:04] VITALS: BP 117/44
--- NOTE | 2020-10-03 11:25 | NUR ---
CARE TEAM INDICATED THAT PT IS MEDICALLY STABLE TO DC HOME THIS DAY. PT HAD BEEN ACCEPTED FOR SERVICES THROUGH [facility]. CM REACHED OUT TO COLIN AT THE [facility] AGAIN THIS AM AND LEFT WITH PT'S NAME, LAST 4 OF SOCIAL AND PCP NAME FOR HER TO INITIATE HOMEMAKER REFERRAL. CM DOCUMENTED THIS IN PT'S DC INSTRUCTIONS AND HAD SPOKEN WITH PT'S SON/DPOA ABOUT THIS THE END OF LAST WEEK AND THIS AM. ANTICIPATES THAT FAMILY WILL PROVIDE TRANSPORT HOME THIS DAY. CM CALLED AND LEFT FOR PT'S SON MARIA GUADALUPE. AWAITING RESPONSE. IN DC INSTRUCTIONS: HOMEMAKER REFERRAL THROUGH THE [facility] INITIATED [facility]ROUGH [facility] AND PCP DR. DRE WATSON. [facility] TRANSITIONS NURSE NUMBER EXT [phone] DR[address] WATSON WILL GET REFERRAL AND [facility] WILL CONTACT YOU TO INITIATE SERVICES IN THE NEXT FEW WEEKS.
--- NOTE | 2020-10-03 13:35 | NUR ---
ASSUMED PT CARE THIS AM. PT A&OX2. PATIENT DOES NOT CALL OUT WHEN NEEDED, BUT IS CLOSE TO NURSES STATION, FREQUENT CHECKS BEING COMPLETED. IV BECAME INFILTRATED, REMOVED. PATIENT REPORTED NAUSEA, GAVE NAUSEA MEDS PO. PATIENT STANDBY ASSIST TO BATHROOM. PATIENT HAD A BOWEL MOVEMENT THIS SHIFT. PATIENT WITH BLE EDEMA. PATIENT IS ON ROOM AIR. BLOOD SUGARS BEING MONITORED. FALL PRECAUTIONS ARE IN PLACE, CACLL LIGHT WITHIN REACH. PATIENT DISCHARGED TO HOME WITH HOME HEALTH. SON AT BEDSIDE AND REPORTED UNDERSTANDING OF DISCHARGE TEACHING.
== END 2020-10-03 13:10 | disposition home health service (06) | DRG 871 ==
LOC: ER 18:31 → 4S 21:30 → EROBS 21:30 → 4S 22:12
PROVIDERS: Nurse Practitioner; Nurse Practitioner Family; ADMIT Hospitalist; ATTEND Hospitalist
DX: A41.9 Sepsis, unspecified organism (principal); J18.9 Pneumonia, unspecified organism; N18.4 Chronic kidney disease, stage 4 (severe); N17.9 Acute kidney failure, unspecified; J44.0 Chronic obstructive pulmonary disease with (acute) lower respiratory infection; N39.0 Urinary tract infection, site not specified; Z20.822 Contact with and (suspected) exposure to COVID-19; M19.90 Unspecified osteoarthritis, unspecified site; E11.51 Type 2 diabetes mellitus with diabetic peripheral angiopathy without gangrene; I25.10 Atherosclerotic heart disease of native coronary artery without angina pectoris; M10.9 Gout, unspecified; E78.00 Pure hypercholesterolemia, unspecified; E11.22 Type 2 diabetes mellitus with diabetic chronic kidney disease; I12.9 Hypertensive chronic kidney disease with stage 1 through stage 4 chronic kidney disease, or unspecified chronic kidney disease; K21.9 Gastro-esophageal reflux disease without esophagitis; K74.60 Unspecified cirrhosis of liver; E03.9 Hypothyroidism, unspecified; I25.5 Ischemic cardiomyopathy; D46.9 Myelodysplastic syndrome, unspecified; I48.91 Unspecified atrial fibrillation; I27.20 Pulmonary hypertension, unspecified; E87.6 Hypokalemia; E78.5 Hyperlipidemia, unspecified; G47.33 Obstructive sleep apnea (adult) (pediatric); F03.90 Unspecified dementia, unspecified severity, without behavioral disturbance, psychotic disturbance, mood disturbance, and anxiety; N40.0 Benign prostatic hyperplasia without lower urinary tract symptoms; T50.2X5A Adverse effect of carbonic-anhydrase inhibitors, benzothiadiazides and other diuretics, initial encounter; I08.0 Rheumatic disorders of both mitral and aortic valves; Y92.238 Other place in hospital as the place of occurrence of the external cause; Z87.442 Personal history of urinary calculi; Z87.11 Personal history of peptic ulcer disease; Z79.01 Long term (current) use of anticoagulants; Z95.820 Peripheral vascular angioplasty status with implants and grafts; Z95.1 Presence of aortocoronary bypass graft; Z95.0 Presence of cardiac pacemaker; Z79.899 Other long term (current) drug therapy; Z79.4 Long term (current) use of insulin; Z88.0 Allergy status to penicillin; Z88.8 Allergy status to other drugs, medicaments and biological substances; Z87.891 Personal history of nicotine dependence; Z91.14 Patient's other noncompliance with medication regimen
CPT/HCPCS: 10195

== ENCOUNTER → 2021-01-23 | Outpatient (CLI) | payer OTHER ==
[~2021-01-23] MED LIST changes: +CEFDINIR300 MG PO; +HALOPERIDOL 1 MG1 MG PO; +LACTULOSE20 GM/30 M PO; +LIDOPATCH1 EACH TRANSDERM; +STIMULANT LAXA1 EACH PO
== END ==
LOC: SJCVC 09:48
PROVIDERS: ATTEND Internal Medicine Cardiovascular Disease
DX: I25.10 Atherosclerotic heart disease of native coronary artery without angina pectoris (principal); I13.0 Hypertensive heart and chronic kidney disease with heart failure and stage 1 through stage 4 chronic kidney disease, or unspecified chronic kidney disease; E11.22 Type 2 diabetes mellitus with diabetic chronic kidney disease; N18.4 Chronic kidney disease, stage 4 (severe); I50.33 Acute on chronic diastolic (congestive) heart failure; E78.00 Pure hypercholesterolemia, unspecified; I49.5 Sick sinus syndrome; I48.92 Unspecified atrial flutter; I27.20 Pulmonary hypertension, unspecified; G47.33 Obstructive sleep apnea (adult) (pediatric); D68.59 Other primary thrombophilia; J44.9 Chronic obstructive pulmonary disease, unspecified; Z82.49 Family history of ischemic heart disease and other diseases of the circulatory system; Z99.89 Dependence on other enabling machines and devices; Z95.820 Peripheral vascular angioplasty status with implants and grafts; Z95.0 Presence of cardiac pacemaker; Z88.0 Allergy status to penicillin; Z88.8 Allergy status to other drugs, medicaments and biological substances; Z87.891 Personal history of nicotine dependence

== ENCOUNTER 2021-04-11 20:57 | Inpatient (IN) | payer OTHER ==
[~2021-04-11] VITALS: Ht 172.7 cm; Wt 72.6 kg
[~2021-04-11 20:57] MED LIST changes: -IRON160 M1 PO; +IRON325 M1 PO
[2021-04-11 21:04] VITALS: BP 126/53
[2021-04-11 22:35] LABS: ABSOLUTE NEUTROPHILS 2.9 thou/uL (1.4-8.2); BASOPHILS 0.4 % (0.0-2.0); EOSINOPHILS 0.1 % (0.0-3.0); HEMATOCRIT 25.3 % (42.0-52.0); HEMOGLOBIN 8.2 gm/dL (14.0-18.0); LYMPHOCYTES 21.2 % (24.0-44.0); MCH 26.6 pg (26.0-34.0); MCHC 32.3 g/dL (28.0-37.0); MCV 82.4 fL (80.0-100.0); PLATELET COUNT 143 thou/uL (150-400); POLYS 69.3 % (36.0-66.0); RBC 3.07 mil/uL (4.50-6.00); RDW 18.1 % (10.5-14.5); WBC 4.2 thou/uL (4.0-11.0)
[2021-04-11 22:44] LABS: CREATININE 3.5 mg/dL (0.7-1.3); POTASSIUM 3.3 mmol/L (3.5-5.1)
[2021-04-11 22:58] LABS: ALBUMIN 2.9 g/dL (3.4-5.0); TOTAL BILIRUBIN 0.8 mg/dL (0.2-1.0)
[2021-04-12 00:49] LABS: URINE BILIRUBIN NEGATIVE (Negative); URINE BLOOD 2+ (Negative); URINE CLARITY CLEAR; URINE COLOR YELLOW; URINE GLUCOSE-RANDOM* NEGATIVE (Negative); URINE KETONES NEGATIVE (Negative); URINE NITRITE-REFLEX NEGATIVE (Negative); URINE PROTEIN (DIPSTICK) 2+ (Negative); URINE SPECIFIC GRAVITY 1.015 (1.005-1.035); URINE UROBILINOGEN 0.2 E.U./dl (0.2-1.0)
[2021-04-12 00:51] LABS: URINE LEUKOCYTES-REFLEX 1+ (Negative)
[2021-04-12 01:55] LABS: CASTS None Seen /LPF (None Seen); CRYSTALS None Seen /LPF (None Seen); MUCUS 0-3 Light strn/LPF (None Seen); SQUAMOUS 0-3 Few /LPF (0-3); WBC CLUMPS Moderate (None Seen)
--- NOTE | 2021-04-12 06:32 | NUR ---
THIS NURSE WITNESS THE PT YELL AT THE PHLEBOMOTIST REFUSING LAB DRAW. PT YELLED "I DONT WANT IT" TWO TIMES.
[2021-04-12 08:34] LABS: HEMATOCRIT 26.4 % (42.0-52.0); HEMOGLOBIN 8.3 gm/dL (14.0-18.0); MCH 26.3 pg (26.0-34.0); MCHC 31.5 g/dL (28.0-37.0); MCV 83.4 fL (80.0-100.0); RBC 3.17 mil/uL (4.50-6.00); RDW 18.7 % (10.5-14.5); WBC 3.9 thou/uL (4.0-11.0)
[2021-04-12 08:40] LABS: CALCIUM 8.8 mg/dL (8.5-10.1); CREATININE 3.5 mg/dL (0.7-1.3); POTASSIUM 3.3 mmol/L (3.5-5.1)
[2021-04-13] VITALS (7 sets, daily range): BP systolic 137–143; BP diastolic 58–80
--- NOTE | 2021-04-13 01:45 | NUR ---
Nursing Note: Pt occasionally calls out for nurse. Instructed to use call light, forgettful. Pt incontinent of urine. Bed changed, denies any need for pain medicine. States just that "he's sick".
--- NOTE | 2021-04-13 07:40 | EKG ---
[address] [address] ELECTROCARDIOGRAM REPORT Name: DARRICK GONZALEZ Room #: 170-19 ADM IN M.R.#: [id number] Admission: 04/12/21 Attend Phys: Wilfrido Rockwell MD Discharge: Date of : 38 Report #: [id number] [facility] ED Test Date: 2021-04-11 Test Time: 22:11:02 Pat Name: DARRICK GONZALEZ Department: Room: 170 Gender: M Gage Maker: sherry : 1940 Requested By: Walt Saucedo Order Number: [id number] MD: Kj Brizuela Measurements Intervals [place] Rate: 97 P: 0 GA: 60 QRS: 62 QRSD: 164 T: -77 QT: 423 QTc: 538 Interpretive Statements Sinus rhythm Short GA interval Prominent P waves, nondiagnostic Right bundle branch block Repol abnrm suggests ischemia, diffuse leads Compared to ECG 04/12/2019 21:35:45 Short GA interval now present Atrial fibrillation no longer present Possible ischemia still present Electronically Signed On 04-13-2021 7:39:58 CORPORATE PHYSICAL SECURITY SUPERVISOR by jK Brizuela [email or web address] <ELECTRONICALLY SIGNED> By: Kj Brizuela MD, FACC 04/13/21 0739 10 10 Kj Brizuela MD, [facility] /EPI
[2021-04-13] MEDS ORDERED: ZAROXOLYN 5MG TA5 MG PO (13:02)
[2021-04-13] MEDS ORDERED: MIRTAZAPINE7.5 MG PO (13:04)
[2021-04-13] MEDS ORDERED: TORSEMIDE20 MG PO (13:05)
[2021-04-13] MEDS ORDERED: XANAX 0.25 MG0.25 MG PO (13:08)
--- NOTE | 2021-04-13 17:35 | NUR ---
son with pt providing support. report called RN receiving pt at 3398. pt sat on edge of cart, consumed all of his evening meal. transferred by cart to RM #[id number].
--- NOTE | 2021-04-14 04:01 | NUR ---
assumed care approx 1900 evening 04/13. pt arrived to unit approx 1830 from ER. pt confused at times and yelling out that all he wanted to do was just go to sleep. pt yelling out that he didn't feel good however not able to verbalize more precisely what his complaints were. pt c/o sometimes nausea, sometimes pain. pt assisted with voiding with urinal. pt not able to settle down after po Tylenol given and not able to sleep. pt given IV Morphine as ordered and pt appears to be sleeping soundly at present. bed alarm on and call light in reach. will continue to monitor.
[2021-04-14 07:15] VITALS: BP 145/53
[2021-04-14 09:38] LABS: SOURCE SYNOVIAL
[2021-04-14 11:42] LABS: ABSOLUTE NEUTROPHILS 3.2 thou/uL (1.4-8.2); BASOPHILS 0.4 % (0.0-2.0); EOSINOPHILS 0.8 % (0.0-3.0); HEMATOCRIT 23.5 % (42.0-52.0); HEMOGLOBIN 7.5 gm/dL (14.0-18.0); LYMPHOCYTES 22.9 % (24.0-44.0); MCH 26.1 pg (26.0-34.0); MCHC 31.7 g/dL (28.0-37.0); MCV 82.2 fL (80.0-100.0); MONOCYTES 6.4 % (1.0-8.0); PLATELET COUNT 150 thou/uL (150-400); POLYS 69.5 % (36.0-66.0); RBC 2.86 mil/uL (4.50-6.00); RDW 18.2 % (10.5-14.5); WBC 4.6 thou/uL (4.0-11.0)
[2021-04-14 12:01] LABS: CALCIUM 8.3 mg/dL (8.5-10.1); CREATININE 3.6 mg/dL (0.7-1.3); POTASSIUM 3.9 mmol/L (3.5-5.1)
[2021-04-14 13:18] LABS: ANISOCYTOSIS 1+
[2021-04-14 15:25] VITALS: BP 143/57
--- NOTE | 2021-04-14 18:45 | NUR ---
PT RESTING IN BED WITH POSITION CHANGES, A&OX3, FAMILY AT BEDSIDE MOST OF THE NIGHT, PTS FAMILY REQUESTING NOT TO GIVE MORPHINE STATES PT HAS HISTORY OF PAIN MEDICATION ABUSE. PTS FAMILY ALSO REPORTS PT CALLS OUT FOR CHRISTINA AND MOANS FREQUENTLY AT HOME, SON JAZ REPORTS PT HAS BEEN HAVING [place] FLASHBACKS DURING THE NIGHT AT HOME, REPORTS THERE IS NOTHING THAT MAKES THE PT MORE COMFORTABLE DURING THESE TIMES.
[2021-04-14 20:18] VITALS: BP 152/65
--- NOTE | 2021-04-15 06:14 | NUR ---
RECEIVED CARE OF THIS PATIENT AT 1900. PATIENT ALERT AND ORIENTED XPERSON AND PLACE. HAS BEEN VERBAL ABUSIVE TOWARD STAFF. CRIES OUT SEVERAL TIMES A NIGHT. WHEN ASKED WHAT HE WANTS MOST OF THE TIME HE WANTS NOTHING. C/O GETTING SICK. MED WAS GIVEN. ACCUCHECK WAS 147, DID NOT NEED SS COVERAGE. REMAINS ON BEDREST. SLEPT LITTLE THIS SHIFT.
[2021-04-15 07:00] VITALS: BP 143/62
[2021-04-15 13:12] LABS: URINE BILIRUBIN NEGATIVE (Negative); URINE BLOOD TRACE (Negative); URINE CLARITY CLEAR; URINE COLOR YELLOW; URINE GLUCOSE-RANDOM* NEGATIVE (Negative); URINE KETONES NEGATIVE (Negative); URINE LEUKOCYTES TRACE (Negative); URINE NITRITE POSITIVE (Negative); URINE PROTEIN (DIPSTICK) 2+ (Negative); URINE SPECIFIC GRAVITY 1.015 (1.005-1.035)
[2021-04-15 13:49] LABS: URINE WBC >25 Many /HPF (NONE SEEN)
[2021-04-15 13:50] LABS: URINE RBC 1-2 Rare /HPF (NONE SEEN); WBC CLUMPS Few (None Seen)
[2021-04-15 13:53] LABS: COARSE GRANULAR CASTS 0-3 Few /LPF (None Seen)
[2021-04-15 13:55] LABS: FINE GRANULAR CASTS 0-3 Few /LPF (None Seen)
[2021-04-15 14:02] LABS: CRYSTALS None Seen /LPF (None Seen); SQUAMOUS None Seen /LPF (0-3); WBC CASTS 0-3 Few /LPF (None Seen)
[2021-04-15 16:00] VITALS: BP 152/69
[2021-04-15 18:13] VITALS: BP 159/71
--- NOTE | 2021-04-15 18:45 | NUR ---
PAGED UROLOGY DOCTOR FOR CONSULT @1820; RECIEVED CALL BACK AT 1840 FROM [place]; FRANCISCO JAVIER GAVE REPORT TO COMMUNICATIONS COORDINATOR; COMMUNICATIONS COORDINATOR NOTIFIED NURSE SHE WILL CALL NURSES STATION BACK, AFTER SHE CONSULTS THE UROLOGY SURGEON;
--- NOTE | 2021-04-15 19:50 | NUR ---
@7804 DAVID MORALES FROM UROLOGY CALLED NURSE STATION BACK; BALANCE WHEEL MOTION INSPECTOR NOTIFIED GOVERNMENT GAUGER THE SURGEON WANTS A STAT CT- NON CONTRAST OF ABDOMEN/PELVIS; AND THAT ANTICOAGULATES NEED TO BE STOPPED UNTIL HGB INCREASES; WAITING ON CT SCAN RESULTS TO MOVE FORWARD; NEW ONSET OF FEVER NOTED;
[2021-04-15 20:00] VITALS: BP 155/56
[2021-04-16 05:07] VITALS: BP 150/69
[2021-04-16 07:02] LABS: ABSOLUTE NEUTROPHILS 3.4 thou/uL (1.4-8.2); BASOPHILS 0.3 % (0.0-2.0); EOSINOPHILS 0.3 % (0.0-3.0); LYMPHOCYTES 26.2 % (24.0-44.0); MCH 26.2 pg (26.0-34.0); MCHC 30.9 g/dL (28.0-37.0); MCV 84.6 fL (80.0-100.0); MONOCYTES 8.9 % (1.0-8.0); PLATELET COUNT 196 thou/uL (150-400); POLYS 64.3 % (36.0-66.0); RBC 3.07 mil/uL (4.50-6.00); RDW 18.5 % (10.5-14.5); WBC 5.3 thou/uL (4.0-11.0)
[2021-04-16 07:29] LABS: CALCIUM 8.9 mg/dL (8.5-10.1); CREATININE 3.1 mg/dL (0.7-1.3); POTASSIUM 4.3 mmol/L (3.5-5.1)
[2021-04-16 07:36] VITALS: BP 139/58
--- NOTE | 2021-04-16 08:20 | NUR ---
PT ALERT X1 . ANXIOUS AND YELLS AT TIMES "CHRISTINA COME GET ME". MEDICATED WITH HALDOL X1 PRIOR TO GOING TO CT SCAN OF THE ABDOMEN. RESULTS OF CT CALLED TO DIRECTORY COMPILER ANDREW HACKETT. INFORMED DAY SHIFT NS IF PT BECOMES UNABLE TO VOID. TO BLADDER SCAN AND IF > [address] [place] AND TO START CBI IF BLOOD CLOTS NOTED REQUESTED BY UROLOGY DIRECTORY COMPILER. OVERNIGHT PT WAS ABLE TO URINATE IN URINAL AND WAS INC IN LG AMTS X2. URINE WAS ORANGE IN COLOR AND VERY LIGHTLY PINK TINGED. HG IMPROVED THIS AM FROM LAST HG. SEE LABS. NOTIFIED DAY SHIFT NS ANTICOAGULANT ON HOLD FOR NOW. VSS OVERNIGHT.
[2021-04-16 08:40] LABS: ANISOCYTOSIS 3+
[2021-04-16 08:41] LABS: POIKILOCYTOSIS 3+
[2021-04-16 16:20] VITALS: BP 136/107
[2021-04-16 16:39] VITALS: BP 159/59
--- NOTE | 2021-04-16 19:27 | NUR ---
PATIENT RESTING IN BED,AXO X2. DOES LIKE TO HALLING IN THE ROOM FOR NURSE, BUT DOES NOT LIKE TO BE MOVE OR TOUCH. COMDOM CATH IN PER SON REQUEST. CALL LIGHT WITHIN REACH, WILL CONTINOUS MONITORING.
[2021-04-17 04:57] VITALS: BP 140/59
[2021-04-17 06:19] LABS: HEMATOCRIT 25.3 % (42.0-52.0); HEMOGLOBIN 8.2 gm/dL (14.0-18.0); MCH 26.1 pg (26.0-34.0); MCHC 32.6 g/dL (28.0-37.0); MCV 80.2 fL (80.0-100.0); RBC 3.16 mil/uL (4.50-6.00); RDW 18.3 % (10.5-14.5); WBC 5.4 thou/uL (4.0-11.0)
[2021-04-17 06:25] LABS: CALCIUM 9.1 mg/dL (8.5-10.1); CREATININE 2.9 mg/dL (0.7-1.3); POTASSIUM 3.9 mmol/L (3.5-5.1)
--- NOTE | 2021-04-17 07:26 | NUR ---
PT ORIENTED TO SELF AND PLACE THIS SHIFT. PT ENDORCES KNEE PAIN, RIGHT GREATER THAN LEFT. CONDOM CATH IN PLACE. PT REFUSED REPOSTIONING AND TURNS THIS SHIFT, EDUCATION PROVIDED.
--- NOTE | 2021-04-17 14:29 | NUR ---
ASSUMED PT CARE THIS AM. PT A&OX3, ABLE TO MAKE NEEDS KNOWN. PATIENT REPORTING PAIN IN HIS KNEES, DECREASES WITH REST AND REPOSITIONING. PATIENT HAS EDEMA NOTED TO BILATERAL LOWER EXTREMETIES WELL RIGHT ARM. PATIENT IS ON 2 LITERS OF OXYGEN VIA NC. MEDICATIONS TAKEN WITHOUT ISSUE. PATIENT HAS NO IV, PHYSICIAN MADE AWARE. FALL PRECAUTIONS ARE IN PLACE, CALL LIGHT WITHIN REACH.
[2021-04-17 16:00] VITALS: BP 149/75
--- NOTE | 2021-04-17 18:29 | NUR ---
Met with patient and son pipe at bedside. Patient does not interact with conversation. Son reports patient resides at home with spouse. Lives in split level home. Son reports patient is more talkative. He has dementia with short term memory. he can recall hes at hospital but not the name of hospital. he knows children and and interacts. He ambulates at home with walker. He can toilet himself and wears brief at home. administers medication and does all food prep. Patient does not leave home. drives small distances. 4 children 2 sons, 2 dtrs all supportive and avail to assist. HH in past with [facility]. Hx of acute rehab with [facility]. [facility] Patient with pain in legs unable to participate with therapy. Son concerned patient not talkative. He is not eating, which he initally enjoys. He has concern with pain in his legs. He reports this is not patients baseline. He would carry on conversations and not stare at television without engaging. Reviewed role of casemgt cont to follow for dc planning.
--- NOTE | 2021-04-17 19:54 | HC ---
[facility] [place] [address] CONSULTATION Name: DARRICK GONZALEZ Room #: 445-[facility] [id number] Admission: 04/12/21 Attend Phys: Wilfrido Rockwell MD Discharge: Date of : 38 Report #: [id number] THIS REPORT FOR: cc: Teddy Licona MD, Jonathan MD Geha,Abdiel Jerome MD ~ DATE OF SERVICE: 04/14/2021 INFECTIOUS DISEASES CONSULTATION REASON FOR CONSULTATION: I was asked to evaluate concerning possible septic left knee. HISTORY OF PRESENT ILLNESS: The patient is an 80-year-old with history of COPD, congestive heart failure, dementia, diabetes, chronic kidney disease, myelodysplastic syndrome, presents on 04/12/2021 through the emergency room with generalized weakness. Noticed decreased enteral intake, lower extremity swelling with marked left knee pain and swelling. Some congestive heart failure symptoms as well. No fever, chills, or sweats. The patient has underlying dementia and was unable to give any further details. He does know where he is at, but he was unable to give much history since his admission. Currently without fever. No cough or sputum production. No nausea, vomiting, or diarrhea. He does have dysuria. He was found to have urinary tract infection, is now on ceftriaxone for Klebsiella growth from the urine. He does complain of bilateral lower extremity joint pain, left knee, specifically. No other joints in his upper extremities cause him troubles and no back pain. Unclear if he has had gouty arthritis or rheumatoid arthritis. I did not see any tophi or changes of rheumatoid arthritis, but review of his past history does look like he has had gout before. REVIEW OF SYSTEMS: A 14-point review of systems was negative other than what has been described above. ALLERGIES: BENAZEPRIL, PENICILLIN, LORAZEPAM, TRAMADOL. MEDICATIONS: As noted on his MAR is on allopurinol, is on ceftriaxone. He was given some morphine, but family wishes to be discontinued. PAST MEDICAL HISTORY: Acute on chronic kidney disease, pneumonia, nephrolithiasis, peptic ulcer disease, sleep apnea, TURP for BPH, arthritis, gout, coronary artery disease, COPD, DVT, coronary artery bypass grafting, hypertension, hyperlipidemia, diabetes, gastroesophageal reflux, hiatal hernia, cholecystectomy, atrial fibrillation, status post ablation, permanent pacemaker, cirrhosis, chronic kidney disease, hypothyroidism, ischemic cardiomyopathy with congestive heart failure, hepatitis C antibody positive, hemolytic anemia, autoimmune myelodysplastic syndrome. [facility] [address] [place] [address] CONSULTATION Name: DARRICK GONZALEZ Room #: 445-P [facility] .R.#: [id number] Admission: 04/12/21 Attend Phys: Wilfrido Rockwell MD Discharge: Date of : 38 Report #: [id number] FAMILY HISTORY: The patient is unable to give any details. SOCIAL HISTORY: He is a past smoker, no significant alcohol intake. PHYSICAL EXAMINATION: GENERAL: He was afebrile and hemodynamically stable. He is alert and was reasonably cooperative, although would not move his legs due to his discomfort. He had no skin breakdown noted. He did have some erythema, venous stasis changes mostly over the right lower extremity. He had 2+ anasarca, mostly in the lower extremities. HEENT: Eyes without scleral icterus. Mouth without mucositis. NECK: Supple. LUNGS: Clear. HEART: Regular, without murmur, gallop, or rub. ABDOMEN: Soft and nontender with no hepatosplenomegaly or mass. External genitalia is uncircumcised. No mass. Rectal examination not performed. SPINE: Nontender. EXTREMITIES: Lower extremities, he was tender in his ankles mildly, right knee with large effusion to the left knee, status post aspiration, some tenderness in his left first MTP joint. Did not have any irritability in his hips. The patient would not move his legs enough to further assess due to his complaints of knee pain. No arthritis of his hands or wrists. NEUROLOGIC: Cranial nerves were intact. He was reasonably comfortable at rest with no anxiety. LABORATORY DATA: Reviewed. Microbiology reviewed. Chest x-ray, CT scan of the abdomen, x-rays of his left knee reviewed. Left knee aspiration was reviewed, noting 32 mL of fluid was aspirated, which was noncloudy and yellow. IMPRESSION: 1. An 80-year-old with polyarthritis and exacerbation of his left knee. We will await fluid analysis, I do not see the cell count was done and currently crystal analysis is pending. Gram stain showed no organisms. Currently, culture negative at this point in time. 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 Could also be underlying degenerative arthritis or other arthropathy. Less likely will be septic arthritis, but we will need to await culture results. 2. Klebsiella urinary tract infection. 3. Acute kidney injury. 4. Congestive heart failure. 5. Peripheral edema. 6. Coronary artery disease. 7. Pulmonary hypertension. 8. Myelodysplastic syndrome with anemia. [facility] [address] [place] [address] CONSULTATION Name: DARRICK GONZALEZ Room #: 445-P ADM IN .R.#: [id number] Admission: 04/12/21 Attend Phys: Wilfrido Rockwell MD Discharge: Date of : 38 Report #: [id number] 9. Dementia. RECOMMENDATION: We will continue ceftriaxone for the next 24-48 hours while we await culture results of the left knee joint fluid. We will see if he has crystals as well. If inconclusive, would repeat aspiration for cell count. We would treat with anti-inflammatory program. If not previously done, would obtain serologic studies for rheumatologic causes for his arthritis if crystals are negative. <ELECTRONICALLY SIGNED> By: Abdiel Romo MD 04/17/21 [id number] 32 Abdiel Romo MD /nt
[2021-04-18 07:38] VITALS: BP 143/55
--- NOTE | 2021-04-18 07:43 | NUR ---
Pt. rested quietly during the night when checked on during frequent rounds. He refuses to let anyone turn him and if you barely touch him he starts to yell at the staff. Bed alarm is on.
--- NOTE | 2021-04-18 14:15 | NUR ---
ASSUMED PT CARE THIS AM. PT A&OX1, DOES NOT MAKE NEEDS KNOWN. PATIENT HAS A CONDOM CATH IN PLACE DRAINING ORANGE URINE. PATIENT WITH EDEMA NOTED TO BLE. PATIENT IS ON 2 LITERS OF OXYGEN VIA NC. MEDICATIONS TAKEN WITHOUT ISSUE. FALL PRECAUTIONS ARE IN PLACE, CALL LIGHT WITHIN REACH.
[2021-04-18 16:14] VITALS: BP 149/69
[2021-04-18 20:51] VITALS: BP 142/69
[2021-04-19 05:53] LABS: HEMATOCRIT 25.7 % (42.0-52.0); HEMOGLOBIN 8.5 gm/dL (14.0-18.0); MCH 26.3 pg (26.0-34.0); MCV 79.7 fL (80.0-100.0); RBC 3.23 mil/uL (4.50-6.00); RDW 18.1 % (10.5-14.5); WBC 5.1 thou/uL (4.0-11.0)
[2021-04-19 06:06] LABS: CALCIUM 9.5 mg/dL (8.5-10.1); CREATININE 2.7 mg/dL (0.7-1.3); POTASSIUM 3.6 mmol/L (3.5-5.1)
--- NOTE | 2021-04-19 06:45 | NUR ---
ASSUMED CARE OF PT AT 1900. PT ASSESSED TO BE AOX1 80M PRESENTING WITH UTI AND AMS. PT WAS ABLE TO REST QUIETLY THROUGHOUT MOST OF THE NIGHT WITH NO COMPLAINTS, VSS. PT HAD ELEVATED TEMP EARLY IN AFTERNOON, TREATED WITH ORAL TYLENOL. CONDOM CATH PATENT, STABLE ON 2L NC, BILAT KNEE PAIN UPON MOVING, TAKES MEDS WHOLE. NEEDS IV FOR PUSH MEDSM INCLUDING ZOFRAN. WILL ATTEMPT WITH DAY SHIFT RN. WILL CONT TO MONITOR.
[2021-04-19 07:37] VITALS: BP 136/64
[2021-04-19 11:11] LABS: BF CRYSTALS CPPD Crystals
--- NOTE | 2021-04-19 11:54 | NUR ---
ASSUMED CARE OF PT AT 0700 THIS MORNING. PT IS A/OX2, PERSON AND SITUATION OTHERWISE CONFUSED. PT HAS EDEMA BILAT LE +2 PITTING. EDEMA IN LT ARM DUE TO INFILTRATED IV. PT IS IN PAIN WITH ANY MOV'T OF LEGS OR NECK. ASSESSMENTS NOTED IN CHART AND OTHERWISE UNREMARKABLE. IV TEAM HAS BEEN PAGED SINCE MYSELF AND 2 OTHER NURSES WERE UNABLE TO GAIN IV ACCESS. FALL PRECAUTIONS ARE IN PLACE. CALL LIGHT AND OTHER NEEDS ARE IN REACH. MEDS AND TX GIVEN NEEDED AND SCHEDULED. DR. MCKEON GAVE VERBAL ORDER FOR HALDOL 5MG IM TO AID IN CALMING PT DOWN SO IV TEAM CAN GET A PERIPHERAL IV STARTED STAT. WILL CONTINUE TO MONITOR AND NOTE ANY CHANGES. CALLED LAB TO SEE IF THE PT HAD RESULTED IN FLUID AND REC'D CALL BACK THAT PT HAS CPPD CRYSTALINS IN BLOOD.
[2021-04-19 20:00] VITALS: BP 126/58
[2021-04-19 23:47] VITALS: BP 135/56
--- NOTE | 2021-04-20 06:35 | NUR ---
ASSUMED CARE OF PT AT 1900. PT ASSESSED TO BE AOX1 80M PRESENTING WITH POLYARTHRITIS, UTI, ETC. PT WAS ABLE TO REST QUIETLY IN BED FOR MOST OF THE MORNING, VSS THROUGHOUT THE NIGHT. PT IS STABLE ON 2L NC, CONDOM CATH PATENT, HAS EXTREME PAIN FROM ARTHRITIS, REFUSES ALL MOVEMENT, AND YELLS OUT FREQUENTLY BUT DOES NOT PROVIDE CLEAR ANSWERS OF AILMENT. EARLY IN PM PT BEGAN EXPRESSING DISCOMFORT: GAVE TYLENOL, ZOFRAN, COMPAZINE, HALDOLX1, MELATONIN, BUT WAS NOT ABLE TO GET PT RELIEF. EDUCATED PT ON IMPORTANCE OF BEING TURNED TO NOT CREATE A SORE, WHICH WOULD CAUSE GREATER PAIN. PT RELUCTANTLY ALLOWED RN AND TECH TO TURN AND CLEAN PT. PT HAS NEWLY FORMED BACK R THIGH BLOOD BLISTER AND SKIN TEAR. APPLIED CREAM, TURNED PT ON L SIDE, AND PROPPED PT UP WITH PILLOWS TO REMOVE WEIGHT FROM SIDE. THROUGHOUT THE REST OF THE AM PT WAS ABLE TO REST QUIETLY. WILL PASS ON INFORMATION TO DAY SHIFT RN.
[2021-04-20 09:42] LABS: ALBUMIN 1.9 g/dL (3.4-5.0); CREATININE 2.9 mg/dL (0.7-1.3); PHOSPHORUS 4.2 mg/dL (2.6-4.7); POTASSIUM 3.4 mmol/L (3.5-5.1)
[2021-04-20 10:08] LABS: ANA INTERPRETATION Negative (Negative)
[2021-04-20 10:29] VITALS: BP 140/75
[2021-04-20 15:32] VITALS: BP 138/80
--- NOTE | 2021-04-20 17:48 | NUR ---
PATIENT CONTINUES TO DISPLAY CONFUSION AND EPISODES OF EXTREME PAIN. ALERT AND ORIENTED X 1, HOWEVER WHEN CONVERSING CAN RECALL FAMILY AND SOME DATES OF SIGNIFICANCE. TURNED PATIENT TO LEFT AND BACK ONLY HAS OPEN AREA ON RIGHT SIDE. REFUSING THERAPY. CONDOM CATH DRAINING JESSICA URINE. YELLS OUT FREQUENTLY. STARTED ON OXYCODONE SCHEDULED FOR PAIN, IV STEROIDS AND IV FLUIDS AT 75/HR. POTASSIUM REPLACED. LIMITED INTAKE. C/O OF NAUSEA AT TIMES. ZOFRAN AND HALDOL GIVEN FOR NAUSEA AND AGITATION. APPEARS A LITTLE MORE RESTFUL THIS AFTERNOON
[2021-04-20 17:49] VITALS: BP 143/68
[2021-04-20 22:18] VITALS: BP 133/37
[2021-04-21 05:12] LABS: ALBUMIN 1.9 g/dL (3.4-5.0); CALCIUM 8.5 mg/dL (8.5-10.1); PHOSPHORUS 4.6 mg/dL (2.5-4.9)
[2021-04-21 05:19] LABS: POTASSIUM 5.1 mmol/L (3.5-5.1)
--- NOTE | 2021-04-21 06:00 | NUR ---
Pt. has had periods of yelling out and c/o pain to his knee. Po pain meds given (see emar) with some relief noted. Pt. does not like to be touched and can be verbally inappropriate to staff. He does not like to be turned or repostioned. He feels like we are killing him. Pt. was educated that the staff is here to take care and help him, but he does not seem to understand. Bed alarm is on. Pt. does have non-productive cough and lung warner sound course upon auscultation this amMadeline FAYE called and new order for chest x-ray this am.
[2021-04-21 07:50] VITALS: BP 132/90
--- NOTE | 2021-04-21 10:39 | NUR ---
ORDERS FOR EVAL AND TREAT RECEIVED SINCE 04/14/21. Pt HAS BEEN UNABLE TO PARTICIPATE WITH EVAL FOR PAST WEEK AND SCREAMING OUT DUE TO CONFUSION OR PAIN. WILL PLACE ON HOLD AT THIS TIME AND AWAIT NEW ORDERS WHEN Pt ABLE TO PARTICIPATE WITH P.T.
--- NOTE | 2021-04-21 16:44 | NUR ---
Patient with knee sx and plan home dc today. 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 Sp with More with [employer]. She reports his prescriptions at [facility] pharmacy. She reports patient may have to pay some out of pocket and workmans comp to reimburse. Patient reports he is not paying anything out of pocket. THis casemgt and RN sp with patient together to report he has prescriptions and may need to pay some cost but workmans vyt to reimburse. Patient upset and reports he will not pay out of pocket. 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 More called this casemgr and reports she paid out of her own finances. patient to dc home with care. Prev arranged by oren rodriguez with [facility]. Faxed orders and rec confirmation they rec orders. No further needs patient has a walker at home
--- NOTE | 2021-04-21 18:23 | NUR ---
PATIENT WITH COARSE LUNG SOUNDS THIS AM. ENCOURAGED PATIENT TO COUGH, DEEP BREATHE. YELLING AND HOLLERING AT STAFF. TURNED OFTEN WOULD ALLOW, ZOFRAN GIVEN ORDERED, PAIN MEDS GIVEN ORDERED. FAMILY UPDATED. INCENTIVE SPIROMETRY ATTEMPTED-FAIR. CONDOM CATH IN PLACE
[2021-04-21 20:56] VITALS: BP 144/66
--- NOTE | 2021-04-22 06:20 | NUR ---
PATIENT AOX1 CONFUSED AND FORGETFUL. PATIENT HAD HIGH ANXIETY PRN HALDOL GIVEN PER ORDER. PATIENT REFUSED TO TURN AFTER SEVERAL ATTEMPT, PATIENT REFUSED TO TAKE AM MEDS. PATIENT INCONTIENT BUT HAS CONDOM CATH. PATIENT YELLS ALL NIGHT AND REFUSE CARE. PAIN CONTROLLED THIS SHIFT. PATIENT ENCOURAGED FLUIDS.FALL PRECAUTION IN PLACE. PATIENT IN BED ASLEEP AT THIS TIME BREATHING REGULAR AND UNLABORED.
[2021-04-22 07:27] VITALS: BP 129/63
[2021-04-22 14:58] LABS: ABSOLUTE NEUTROPHILS 5.2 thou/uL (1.4-8.2); BASOPHILS 0.2 % (0.0-2.0); HEMATOCRIT 23.9 % (42.0-52.0); HEMOGLOBIN 7.8 gm/dL (14.0-18.0); LYMPHOCYTES 5.4 % (24.0-44.0); MCH 26.1 pg (26.0-34.0); MCHC 32.5 g/dL (28.0-37.0); MCV 80.3 fL (80.0-100.0); MONOCYTES 1.7 % (1.0-8.0); PLATELET COUNT 322 thou/uL (150-400); POLYS 92.7 % (36.0-66.0); RBC 2.98 mil/uL (4.50-6.00); RDW 17.7 % (10.5-14.5); WBC 5.6 thou/uL (4.0-11.0)
[2021-04-22 15:12] LABS: ALBUMIN 2.2 g/dL (3.4-5.0); CALCIUM 8.5 mg/dL (8.5-10.1); CALCIUM 8.7 mg/dL (8.5-10.1); CREATININE 3.4 mg/dL (0.7-1.3); CREATININE 3.5 mg/dL (0.7-1.3); PHOSPHORUS 3.9 mg/dL (2.6-4.7); POTASSIUM 4.6 mmol/L (3.5-5.1); POTASSIUM 4.7 mmol/L (3.5-5.1)
[2021-04-22 16:13] VITALS: BP 136/47
[2021-04-22 16:19] VITALS: BP 121/58
--- NOTE | 2021-04-22 17:37 | NUR ---
Patient resting in bed, axo x1 like to call out loud for knee pain , but does not like to be touch. straight cath once, output of 100ml. eating very little. call light within reach, will contious monitoring.
[2021-04-22 20:15] VITALS: BP 139/77
--- NOTE | 2021-04-23 04:36 | NUR ---
RECEIVED CARE OF THIS PATIENT AT 1900. PATIENT ALERT AND ORIENTED TO SELF ONLY. LAYS IN BED AND YELLS. WHEN ANYONE GOES IN AND TALKS TO HIM HE CAN BE SWEET ONE SECOND AND THE HATEFUL AND CUSSING THE PERSON OUT THE NEXT. ACCUCHECK WAS 343, RECEIVED 9 UNITS OF LISPRO INSULIN. HAS CONDOM CATH THAT IS PATENT. GETS SCHEDULED PAIN MED, SOMETIMES HE SAYS HE HURTS AND SOMETIMES SAYS NOT. SLEPT LITTLE THIS SHIFT.
[2021-04-23 11:12] LABS: ABSOLUTE NEUTROPHILS 4.1 thou/uL (1.4-8.2); BASOPHILS 0.3 % (0.0-2.0); EOSINOPHILS 0.1 % (0.0-3.0); HEMATOCRIT 23.7 % (42.0-52.0); HEMOGLOBIN 7.7 gm/dL (14.0-18.0); LYMPHOCYTES 3.9 % (24.0-44.0); MCH 25.9 pg (26.0-34.0); MCHC 32.5 g/dL (28.0-37.0); MCV 79.9 fL (80.0-100.0); MONOCYTES 2.3 % (1.0-8.0); PLATELET COUNT 322 thou/uL (150-400); POLYS 93.4 % (36.0-66.0); RBC 2.97 mil/uL (4.50-6.00); RDW 18.3 % (10.5-14.5); WBC 4.4 thou/uL (4.0-11.0)
[2021-04-23 11:27] LABS: ALBUMIN 2.4 g/dL (3.4-5.0); CALCIUM 8.8 mg/dL (8.5-10.1); CREATININE 3.5 mg/dL (0.7-1.3); MAGNESIUM 2.3 mg/dL (1.8-2.4); PHOSPHORUS 3.7 mg/dL (2.6-4.7); POTASSIUM 4.5 mmol/L (3.5-5.1); TOTAL BILIRUBIN 0.4 mg/dL (0.2-1.0); TOTAL PROTEIN 6.6 g/dL (6.4-8.2)
[2021-04-23 12:28] LABS: URINE BILIRUBIN NEGATIVE (Negative); URINE BLOOD NEGATIVE (Negative); URINE CLARITY CLEAR; URINE COLOR YELLOW; URINE GLUCOSE-RANDOM* NEGATIVE (Negative); URINE KETONES NEGATIVE (Negative); URINE LEUKOCYTES TRACE (Negative); URINE NITRITE NEGATIVE (Negative); URINE PROTEIN (DIPSTICK) NEGATIVE (Negative); URINE SPECIFIC GRAVITY 1.015 (1.005-1.035); URINE UROBILINOGEN 0.2 E.U./dl (0.2-1.0)
[2021-04-23 12:32] LABS: PROT/CREAT RATIO 0.3; URINE CREATININE-RANDOM* 62.8 mg/dL; URINE PROTEIN-RANDOM* 21.6 mg/dL (<11.9)
[2021-04-23 14:52] LABS: HEMATOCRIT 22.1 % (42.0-52.0); HEMOGLOBIN 7.1 gm/dL (14.0-18.0)
[2021-04-23 16:01] VITALS: BP 131/55
[2021-04-23 20:26] VITALS: BP 128/62
[2021-04-24 06:12] LABS: BASOPHILS 0.1 % (0.0-2.0); HEMATOCRIT 23.7 % (42.0-52.0); HEMOGLOBIN 7.7 gm/dL (14.0-18.0); LYMPHOCYTES 6.1 % (24.0-44.0); MCH 26.2 pg (26.0-34.0); MCHC 32.7 g/dL (28.0-37.0); MCV 80.3 fL (80.0-100.0); MONOCYTES 5.5 % (1.0-8.0); PLATELET COUNT 312 thou/uL (150-400); POLYS 88.3 % (36.0-66.0); RBC 2.95 mil/uL (4.50-6.00); RDW 18.2 % (10.5-14.5); WBC 4.6 thou/uL (4.0-11.0)
[2021-04-24 06:55] LABS: ALBUMIN 2.4 g/dL (3.4-5.0); CALCIUM 8.7 mg/dL (8.5-10.1); CREATININE 2.9 mg/dL (0.7-1.3); PHOSPHORUS 3.3 mg/dL (2.6-4.7); POTASSIUM 4.4 mmol/L (3.5-5.1)
[2021-04-24 07:26] VITALS: BP 139/65
--- NOTE | 2021-04-24 07:38 | NUR ---
Assumed care on 04/23/21 @ 1900, in bed, agitated and calling out, "Oh Tremaine help me" repeatedly, when asked what he wants help with, he cannot say. Condom cath in place, carlos urine flowing to gravity. +2 Edema noted to lower extremities. NPO except for medications, A&Ox1 with confusion and agitation noted. Lidocain patch applied as ordered. Uncovers self and then calls out that he is cold. Blankets repositioned numerous times. IV site R AC running fluids as ordered. Call light within reach.
--- NOTE | 2021-04-24 11:56 | NUR ---
Therapy evals are on hold as patient cont to not be able to participate.
[2021-04-24 16:04] VITALS: BP 122/49
--- NOTE | 2021-04-24 19:45 | NUR ---
Patient is up in the chair for a few hour, try to use bed jerez, had a 4 small loose bm. will continous monitoring.
[2021-04-24 21:10] VITALS: BP 143/72
--- NOTE | 2021-04-25 05:59 | NUR ---
RECEIVED CARE OF THIS PATIENT AT 1900. PATIENT ALERT AND ORIENTED TO SELF AND PLACE. CONTINUES TO HOLLAR OUT "GOD HELP ME". HAS HAS LOSE BROWN STOOLS. HAS SKIN TEARS ON COCCYS AND BACK OF R THIGH. CLEANED AND DRESSING APPLIED ORDERED. PAIN MED GIVEN. ORDER OBTAINED FOR XANAX, WAS GIVEN. SLEPT LITTLE THIS SHIFT.
[2021-04-25 07:55] VITALS: BP 147/63
[2021-04-25 08:06] LABS: HEMATOCRIT 24.4 % (42.0-52.0); HEMOGLOBIN 7.6 gm/dL (14.0-18.0); MCH 25.3 pg (26.0-34.0); MCHC 31.2 g/dL (28.0-37.0); RBC 3.01 mil/uL (4.50-6.00); RDW 18.5 % (10.5-14.5); WBC 7.2 thou/uL (4.0-11.0)
[2021-04-25 08:21] LABS: ALBUMIN 2.5 g/dL (3.4-5.0); CALCIUM 8.8 mg/dL (8.5-10.1); CREATININE 2.4 mg/dL (0.7-1.3); PHOSPHORUS 2.6 mg/dL (2.5-4.9); POTASSIUM 4.3 mmol/L (3.5-5.1)
--- NOTE | 2021-04-25 17:40 | NUR ---
1600-PT SCREAMING IN BED COMPLAINTS OF HAVING TO POOP AND STOMACH PAIN. PT GIVEN ENEMA PER ORDERS AND ASSISTED TO BEDSIDE COMMODE 1700- LARGE HARD STOOL RESULTING FROM ENEMA. PT UP TO CHAIR AFTER COMMODE RESTING QUIETLY, REPORTS HIS STOMACH FEELS BETTER. SON AT BEDSIDE. 1750-PT UP IN CHAIR EATING DINNER, SON REPORTING THIS IS THE FIRST TIME PT HAS EATEN IN A WEEK, PT REPORTS APPITITE AND REDUCED NAUSEA AFTER LARGE BM.
[2021-04-26 00:08] VITALS: BP 156/66
[2021-04-26 03:17] LABS: HEMATOCRIT 23.9 % (42.0-52.0); HEMOGLOBIN 7.5 gm/dL (14.0-18.0); MCH 25.8 pg (26.0-34.0); MCHC 31.6 g/dL (28.0-37.0); MCV 81.8 fL (80.0-100.0); RBC 2.92 mil/uL (4.50-6.00); RDW 18.2 % (10.5-14.5); WBC 8.2 thou/uL (4.0-11.0)
[2021-04-26 05:00] LABS: ALBUMIN 2.8 g/dL (3.4-5.0); CALCIUM 8.5 mg/dL (8.5-10.1); CREATININE 2.2 mg/dL (0.7-1.3); PHOSPHORUS 3.2 mg/dL (2.5-4.9); POTASSIUM 4.9 mmol/L (3.5-5.1)
--- NOTE | 2021-04-26 07:05 | NUR ---
ASSUMED CARE OF PT AT 1900. PT ASSESSED TO BE AOX2 80M PRESENTING WITH MULTIPLE WOUNDS, ARTHRITIS, AND UTI. PT WAS ABLE TO REST THROUGHOUT MOST OF THE NIGHT, VSS. PT IS STABLE ON ROOM AIR, DOES NOT AMBULATE WELL, TURNED TO THE SIDE WITH PILLOWS, ZOFRAN GIVEN FOR NAUSEA D/T BMS, CONDOM CATH DRAINING, ONE BAG OF FLUIDS INFUSED. WILL HAVE RENAL FUNCTION PANEL IN AM, WILL PASS ON ALL INFO TO DAY SHIFT RN.
[2021-04-26 09:18] VITALS: BP 123/64
--- NOTE | 2021-04-26 13:54 | NUR ---
Spoke with son Reid regarding [facility] denied patient and feels skilled most appropriate for patient. Son wants referral to [facility]. Reviewed acute rehab vs skilled. Faxed referral to [facility] and alerted same care as 5N and skilled list in room to review.
--- NOTE | 2021-04-26 14:53 | HC ---
[facility] [place] [address] CONSULTATION Name: DARRICK GONZALEZ Room #: 445-P [facility] IN .R.#: [id number] Admission: 04/12/21 Attend Phys: Wilfrido Rockwell MD Discharge: Date of : 36 Report #: [id number] THIS REPORT FOR: cc: Teddy Licona MD, Jonathan MD Stephens,Orion Yoder MD ~ DATE OF SERVICE: 04/21/2021 WOUND CARE CONSULTATION PERSONAL PHYSICIAN: None on staff. CHIEF COMPLAINT: Hemorrhagic blisters to the right inner thigh as well as deep tissue injury to the sacrum. We have been asked to follow these wounds while the patient is here. The patient himself is somewhat confused and agitated. He is unable to give any permanent history at this time. The patient has a history of Alzheimer's dementia. PAST MEDICAL HISTORY: Significant for dementia, hypertension, atrial fibrillation, status post pacemaker placement, hypertension, diastolic heart failure, peripheral vascular disease, coronary artery disease, status post CABG, diabetes mellitus, diabetic neuropathy, chronic kidney disease. CURRENT MEDICATIONS: Multiple, I reviewed the patient's medication list. DRUG ALLERGIES: PENICILLIN, LORAZEPAM, TRAMADOL, DONEPEZIL. SOCIAL HISTORY: The patient resides with his family. He is a nonsmoker. FAMILY HISTORY AND REVIEW OF SYSTEMS: Unobtainable because of the patient's altered mental status and dementia. PHYSICAL EXAMINATION: VITAL SIGNS: Stable. The patient is afebrile. GENERAL: This is awake, but not oriented white male who appears chronically ill. HEENT: Normocephalic, atraumatic. Mucous membranes are somewhat dry. Pupils are round. Sclerae white. NECK: Without JVD. LUNGS: Diminished breath sounds heard throughout. HEART: Tachycardic. ABDOMEN: Soft, nontender. EXTREMITIES: Evaluation of the sacrococcygeal region reveals a deep tissue injury which is not open. It is somewhat dusky in character. No signs of obvious open areas tunneling or tracking. There is also hemorrhagic blisters to the right inner thigh and right hip of unknown etiology, does not appear to be [address] [address] CONSULTATION Name: DARRICK GONZALEZ Gissel Room #: 445-P [facility] IN ..#: [id number] Admission: 04/12/21 Attend Phys: Wilfrido Rockwell MD Discharge: Date of : 36 Report #: [id number]. Bilateral heels are intact. NEUROLOGIC: Grossly intact. LABORATORY DATA: White count 5.6, hemoglobin 7.8. C-reactive protein is 254.6, albumin 2.4. IMPRESSION: 1. Hemorrhagic blister to the right inner thigh and right hip. 2. Deep tissue injury to the sacrum. 3. Urinary tract infection. 4. Acute on chronic kidney disease. 5. Diabetes mellitus. 6. Atrial fibrillation. 7. Coronary artery disease. 8. Generalized debility. 9. Severe protein calorie malnutrition, albumin 1.9. PLAN: At this time, we will start Xeroform and bordered foam to the hemorrhagic blisters daily and p.r.n. We will put the patient on low air loss surface and turn every 2 hours. We will start barrier cream to the sacrum and leave open to air b.i.d. and p.r.n. We will make sure we continue all other current medications. We will make sure we maximize the patient's protein supplementation as the patient is able. We will utilize physical and occupational therapies as the patient is able. We will continue to follow the patient down. <ELECTRONICALLY SIGNED> By: Orion Lewis MD 04/26/21 [id number] Orion Lewis MD /nt
[2021-04-26 18:03] VITALS: BP 146/70
[2021-04-26 21:51] VITALS: BP 125/56
--- NOTE | 2021-04-27 06:02 | NUR ---
ASSUMED CARE OF PT AT 1900. PT IS EXTREMELY ANXIOUS 80M PRESENTING WITH MULTIPLE ILLNESSES AND WOUNDS. PT WAS ABLE TO REST IN BED THROUGHOUT THE NIGHT, VSS. PT IS STABLE ON ROOM AIR, CANNOT AMBULATE, TURNED WITH PILLOWS TO OFFLOAD WEIGHT FROM WOUNDS, TYLENOL FOR PAIN, AND HALDOL FOR EXTREME ANXIETY. WILL CONT TO MONITOR.
[2021-04-27 07:01] LABS: HEMATOCRIT 27.4 % (42.0-52.0); HEMOGLOBIN 8.5 gm/dL (14.0-18.0); MCHC 31.2 g/dL (28.0-37.0); MCV 83.4 fL (80.0-100.0); RBC 3.28 mil/uL (4.50-6.00); RDW 18.4 % (10.5-14.5); WBC 5.7 thou/uL (4.0-11.0)
[2021-04-27 07:43] LABS: ALBUMIN 3.2 g/dL (3.4-5.0); CALCIUM 8.9 mg/dL (8.5-10.1); PHOSPHORUS 3.7 mg/dL (2.5-4.9); POTASSIUM 4.9 mmol/L (3.5-5.1)
[2021-04-27 07:52] VITALS: BP 140/67
--- NOTE | 2021-04-27 10:06 | NUR ---
Please obtain current weight, last weight available 04/14.
--- NOTE | 2021-04-27 12:24 | NUR ---
[facility] does not have any availability. [facility] can accept and will have a bed tomorrow. All parties updated including pt's sons Reid and Artis. They will try to tour this afternoon and touch base with Catrachita in admissions. Likely dc ready tomorrow. Will follow.
--- NOTE | 2021-04-27 14:20 | NUR ---
ASSUMED CARE OF PT AT 0700. PT SCREAMING OUT LOUD THAT HE FEELS SICK. REPOSITIONED PT AND GAVE PAIN MEDICATION. PT STATED HE NEEDED TO HAVE A BM, [place] [facility] [place] APPEARS TO BE CONSTIPATED. HAD VERY SMALL LIQUIDY BM. WILL ADMINISTER SUPPOSITORY AFTER DINNER. DOC NOTIFIED. WILL AMINISTER ENEMA IF SUPPOSITORY DOES NOT WORK. SPOKE TO BOTH DAUGHTER AND SON TODAY ON THE PHONE. WAITING TO DISCHARGE PT BETWEEN TWO SNFS. CARE MANAGMENT IS INVOLVED AND ON CASE. WILL CONTINUE TO MONITOR PT. ALL VITAL SIGNS WNL.
--- NOTE | 2021-04-27 18:05 | NUR ---
GAVE PT SUPPOSITORY - PT HAD MEDIUM SIZED BM
[2021-04-27 20:38] VITALS: BP 138/61
--- NOTE | 2021-04-28 05:11 | NUR ---
NO ACUTE EVENTS THIS SHIFT. PT IS ALERT AND OREINTED TO PERSON, PLACE, AND YEAR BUT IS VERY SITUATIONAL UNAWARE. PT DENIES PAIN BUT CONTINUES TO PLEED TO GOD FOR ASSISTANCE. PT RESTED FROM 1-5 AM. REFUSED AM BLOOD DRAW
[2021-04-28 07:50] VITALS: BP 143/58
--- NOTE | 2021-04-28 14:33 | NUR ---
TAP WATER ENEMA GIVEN, SUPPOSTIORY GIVEN. PT CONTINUES TO YELL OUT FOR NURSE.
--- NOTE | 2021-04-28 15:23 | NUR ---
Spoke with Luciana Clark they are on hold now and through out the weekend for admissions. Will reassess Saturday. Updated phys and son Reid. No weekend dc
[2021-04-28 15:28] VITALS: BP 147/69
[2021-04-28 16:58] LABS: HEMATOCRIT 26.1 % (42.0-52.0); HEMOGLOBIN 8.2 gm/dL (14.0-18.0); MCH 25.8 pg (26.0-34.0); MCHC 31.4 g/dL (28.0-37.0); MCV 82.4 fL (80.0-100.0); RBC 3.17 mil/uL (4.50-6.00); RDW 19.4 % (10.5-14.5); WBC 6.9 thou/uL (4.0-11.0)
[2021-04-28 17:12] LABS: ALBUMIN 3.3 g/dL (3.4-5.0); CREATININE 1.8 mg/dL (0.7-1.3); PHOSPHORUS 3.5 mg/dL (2.5-4.9); POTASSIUM 5.4 mmol/L (3.5-5.1)
[2021-04-28 21:00] VITALS: BP 157/74
[2021-04-29 06:12] LABS: HEMATOCRIT 25.8 % (42.0-52.0); MCH 26.3 pg (26.0-34.0); MCHC 31.2 g/dL (28.0-37.0); MCV 84.4 fL (80.0-100.0); RBC 3.05 mil/uL (4.50-6.00); RDW 19.6 % (10.5-14.5); WBC 5.2 thou/uL (4.0-11.0)
[2021-04-29 06:34] LABS: ALBUMIN 3.2 g/dL (3.4-5.0); CALCIUM 9.2 mg/dL (8.5-10.1); CREATININE 1.6 mg/dL (0.7-1.3); PHOSPHORUS 3.5 mg/dL (2.6-4.7); POTASSIUM 5.1 mmol/L (3.5-5.1)
[2021-04-29 07:28] VITALS: BP 152/64
[2021-04-29 11:58] VITALS: BP 140/65
[2021-04-29 16:00] VITALS: BP 176/76
[2021-04-30 04:43] LABS: ALBUMIN 3.3 g/dL (3.4-5.0); CALCIUM 9.1 mg/dL (8.5-10.1); CREATININE 1.7 mg/dL (0.7-1.3); PHOSPHORUS 3.5 mg/dL (2.5-4.9); POTASSIUM 5.6 mmol/L (3.5-5.1)
--- NOTE | 2021-04-30 05:09 | NUR ---
Pt. rested quietly during the night when checked on during frequent rounds. He can be non-compliant with cares at time and does not like to be turned. Assisted with use of the urinal. Bed alarm is on.
[2021-04-30 07:52] VITALS: BP 143/68
--- NOTE | 2021-04-30 09:58 | NUR ---
RE-ASSUMED CARE OF PT AT 0700 THIS MORNING. PT IS MORE AWAKE AND SEEMS TO BE IN BETTER COMMUNITCATION. PT IS CONFUSED AND FORGETFUL. ABD MUCH SOFTER AND NO C/O ABD PAIN. ASSESSMENTS NOTED IN CHART AND OTHERWISE UNREMARKABLE. FALL PRECAUTIONS ARE IN PLACE DUE TO WEAKNESS. CALL LIGHT AND OTHER NEEDS ARE IN REACH. MEDS AND TX GIVEN NEEDED AND SCHEDULED. WILL MONITOR AND NOTE ANY CHANGES.
[2021-04-30 19:48] VITALS: BP 122/48
[2021-05-01 04:58] VITALS: BP 128/75
--- NOTE | 2021-05-01 05:53 | NUR ---
PT MUCH MORE SITUATIONALLY AWARE THIS SHIFT THAN PREVIOUSLY. PT SLEPT THROUGH MOST OF THE NIGHT WITHOUT CONCERNS. APPROPRIATE URINE OUTPUT THIS SHIFT. VSS. NO ACUTE EVENTS
[2021-05-01 08:28] VITALS: BP 125/65
--- NOTE | 2021-05-01 11:07 | NUR ---
RE-ASSUMED CARE OF PT AT 0700 THIS MORNING. PT HAD NO CHANGES SINCE REPORT WAS GIVEN LAST NIGHT. ASSESSMENTS NOTED IN THE CHART. PT MAY BE DISCHARGED TO GO TO [facility] THIS AFTERNOON. GETTING COVID NOW TEST ORDERED. CALL LIGHT AND OTHER NEEDS ARE IN REACH. PT HAS BEEN GETTING BELIGERANT WITH STAFF AND IS CONSTANTLY GETTING OUT OF BED AND GETTING ON COMODE. FALL PRECAUTIONS ARE IN PLACE. MEDS AND TX GIVEN NEEDED AND SCHEDULED. WILL MONITOR AND NOTE ANY CHANGES.
[2021-05-01 11:56] LABS: ABSOLUTE NEUTROPHILS 6.5 thou/uL (1.4-8.2); BASOPHILS 0.1 % (0.0-2.0); EOSINOPHILS 0.4 % (0.0-3.0); HEMATOCRIT 24.7 % (42.0-52.0); LYMPHOCYTES 3.4 % (24.0-44.0); MCH 27.4 pg (26.0-34.0); MCHC 32.3 g/dL (28.0-37.0); MCV 84.9 fL (80.0-100.0); MONOCYTES 2.7 % (1.0-8.0); POLYS 93.4 % (36.0-66.0); RBC 2.91 mil/uL (4.50-6.00); RDW 20.7 % (10.5-14.5)
[2021-05-01 12:01] LABS: PLATELET COUNT 217 thou/uL (150-400)
[2021-05-01 12:04] LABS: CALCIUM 8.8 mg/dL (8.5-10.1); POTASSIUM 5.6 mmol/L (3.5-5.1)
[2021-05-01 12:40] LABS: ANISOCYTOSIS 1+
[2021-05-01] MEDS ORDERED: SENNA8.6 MG PO (13:31)
[2021-05-01] MEDS ORDERED: IPRAT-ALBUT 0.5-3 ML INH (13:31)
[2021-05-01] MEDS ORDERED: ACCUNEB SO1.25 MG/1 INH (13:31)
[2021-05-01] MEDS ORDERED: PREDNISONE 10 M10 M1 PO (13:35)
[2021-05-01] MEDS ORDERED: NOVOLOG100 UNIT/M SUBQ (13:40)
== END 2021-05-01 14:06 | DRG 553 ==
LOC: ER 20:57 → 4S 04-12 02:28 → EROBS 04-12 02:28 → 4S 04-13 18:49
PROVIDERS: Emergency Medicine; Hospitalist; Internal Medicine; Internal Medicine Nephrology; Nurse Practitioner Family; ADMIT Hospitalist; ATTEND Hospitalist
PROC: 0S9D3ZZ Drainage of Left Knee Joint, Percutaneous Approach (ICD-10-PCS; principal; 2021-04-12)
DX: M11.262 Other chondrocalcinosis, left knee (principal); N17.0 Acute kidney failure with tubular necrosis; G93.41 Metabolic encephalopathy; I50.33 Acute on chronic diastolic (congestive) heart failure; E43 Unspecified severe protein-calorie malnutrition; N18.4 Chronic kidney disease, stage 4 (severe); N39.0 Urinary tract infection, site not specified; D68.59 Other primary thrombophilia; R18.8 Other ascites; I13.0 Hypertensive heart and chronic kidney disease with heart failure and stage 1 through stage 4 chronic kidney disease, or unspecified chronic kidney disease; K56.7 Ileus, unspecified; E66.01 Morbid (severe) obesity due to excess calories; J44.9 Chronic obstructive pulmonary disease, unspecified; I27.20 Pulmonary hypertension, unspecified; D46.9 Myelodysplastic syndrome, unspecified; Z20.822 Contact with and (suspected) exposure to COVID-19; I25.10 Atherosclerotic heart disease of native coronary artery without angina pectoris; K21.9 Gastro-esophageal reflux disease without esophagitis; K74.60 Unspecified cirrhosis of liver; E03.9 Hypothyroidism, unspecified; E78.00 Pure hypercholesterolemia, unspecified; E11.51 Type 2 diabetes mellitus with diabetic peripheral angiopathy without gangrene; E86.0 Dehydration; M25.462 Effusion, left knee; F03.90 Unspecified dementia, unspecified severity, without behavioral disturbance, psychotic disturbance, mood disturbance, and anxiety; B96.1 Klebsiella pneumoniae [K. pneumoniae] as the cause of diseases classified elsewhere; S30.0XXA Contusion of lower back and pelvis, initial encounter; S70.221A Blister (nonthermal), right hip, initial encounter; R53.81 Other malaise; G47.33 Obstructive sleep apnea (adult) (pediatric); I25.5 Ischemic cardiomyopathy; I49.5 Sick sinus syndrome; D63.8 Anemia in other chronic diseases classified elsewhere; N40.1 Benign prostatic hyperplasia with lower urinary tract symptoms; M13.862 Other specified arthritis, left knee; I48.0 Paroxysmal atrial fibrillation; R31.0 Gross hematuria; M25.452 Effusion, left hip; E11.22 Type 2 diabetes mellitus with diabetic chronic kidney disease; B19.20 Unspecified viral hepatitis C without hepatic coma; E11.65 Type 2 diabetes mellitus with hyperglycemia; Z95.1 Presence of aortocoronary bypass graft; Z88.8 Allergy status to other drugs, medicaments and biological substances; Z95.0 Presence of cardiac pacemaker; Z88.0 Allergy status to penicillin; Z87.891 Personal history of nicotine dependence; Z86.718 Personal history of other venous thrombosis and embolism; Z91.14 Patient's other noncompliance with medication regimen; Z79.01 Long term (current) use of anticoagulants; X58.XXXA Exposure to other specified factors, initial encounter; Y93.89 Activity, other specified; Y92.89 Other specified places as the place of occurrence of the external cause; Y99.8 Other external cause status
CPT/HCPCS: 10195